=== PATIENT | male | born 1945 | race Caucasian/White ===

== ENCOUNTER → 2016-07-22 | Outpatient (CLI) | payer MEDICARE, OTHER ==
[~2016-07-22] MED LIST: ATEN-60 PO; ATOR10TA PO; DABI150C PO; DRON400T PO; FLU05NSL; MAGN400T7 PO; POTA12PO2 PO; TEST30SO TD; TRIA37.561 PO; [UNRECOGNIZED DRUG - CODE] TD
[2016-07-22 12:16] LABS: Basophils # (auto) 0 uL; Basophils % (auto) 0.4 % (0.0-2.0); Eosinophils # (auto) 0.5 uL; Eosinophils % (auto) 5.9 % (0.0-7.0); Hematocrit 48.2 % (41.0-53.0); Hemoglobin 16.5 g/dL (13.5-17.5); Lymphocytes # (auto) 3.1 uL; Lymphocytes % (auto) 34.5 % (10.0-50.0); Mean Corpuscular Hemoglobin 31.2 pg (28.0-32.0); Mean Corpuscular Hgb Conc. 34.3 g/dL (32.0-36.0); Mean Corpuscular Volume 90.8 fL (80.0-100.0); Monocytes # (auto) 0.8 uL; Monocytes % (auto) 8.5 % (0.0-12.0); Neutrophils # (auto) 4.6 uL; Neutrophils % (auto) 50.7 % (37.0-80.0); Platelet Count (auto) 188 10^3/uL (140-450); Red Cell Distribution Width 12.9 % (11.6-16.0); White Blood Cell 9.1 10^3/uL (4.4-10.8)
[2016-07-22 13:10] LABS: Albumin 3.8 g/dL (3.4-5.0); Bilirubin, Total 1.3 mg/dL (0.2-1.0); Calcium 8.8 mg/dL (8.5-10.1); Potassium 3.3 mmol/L (3.5-5.1); Total Protein 8.3 g/dL (6.4-8.2)
[2016-07-22 13:51] LABS: Bilirubin, Direct 0.3 mg/dL (0-0.2)
== END | disposition home or self-care (01) ==
LOC: LAB 08:29
PROVIDERS: ATTEND Internal Medicine Cardiovascular Disease
DX: I10 Essential (primary) hypertension (principal); E78.00 Pure hypercholesterolemia, unspecified; K74.1 Hepatic sclerosis; E11.9 Type 2 diabetes mellitus without complications; R97.20 Elevated prostate specific antigen [PSA]; R53.81 Other malaise; E03.9 Hypothyroidism, unspecified; D64.9 Anemia, unspecified; E55.9 Vitamin D deficiency, unspecified
CPT/HCPCS: 36415; 80048; 80061; 80076; 82306; 83036; 84153; 84154; 84403; 84436; 84443; 85025

== ENCOUNTER → 2016-10-21 | Outpatient (CLI) | payer MEDICARE, OTHER | END | disposition home or self-care (01) | LOC: Rad HDHVI 09:57 | PROVIDERS: ATTEND Internal Medicine Cardiovascular Disease | DX: I51.7 Cardiomegaly (principal); I70.0 Atherosclerosis of aorta; Z95.810 Presence of automatic (implantable) cardiac defibrillator | CPT/HCPCS: 71020 ==

== ENCOUNTER → 2016-11-27 | Outpatient (CLI) | payer MEDICARE, OTHER ==
[~2016-11-27] MED LIST changes: +ADENOSINE 90 MG in GIVE UN-DILUTED 0 ML IV ONE; +ADENOSINE 90 MG/30 ML INJ IV ONE
[2016-11-27 10:40] VITALS: BP 163/86
[2016-11-27 11:30] VITALS: BP 156/88
== END | disposition home or self-care (01) ==
LOC: Rad HDHVI 08:01
PROVIDERS: ATTEND Internal Medicine Cardiovascular Disease
DX: I48.91 Unspecified atrial fibrillation (principal); I25.10 Atherosclerotic heart disease of native coronary artery without angina pectoris; I10 Essential (primary) hypertension; I25.2 Old myocardial infarction; Z95.0 Presence of cardiac pacemaker
CPT/HCPCS: 78452; 93005; 93306; 96374; 96375; A9500; G0463; J0153

== ENCOUNTER → 2017-08-04 | Outpatient (CLI) | payer OTHER ==
[~2017-08-04] MED LIST changes: -ADENOSINE 90 MG in GIVE UN-DILUTED 0 ML IV ONE; -ADENOSINE 90 MG/30 ML INJ IV ONE; +ALPR0.5T PO; +BUDE2SUS3 IN; +FURO40TA PO; +PRE5T PO
[2017-08-04 09:10] VITALS: BP 157/77
[2017-08-04 12:30] LABS: BUN/Creatinine Ratio 22.2; Calcium 8.9 mg/dL (8.5-10.1); Potassium 3.7 mmol/L (3.5-5.1)
[2017-08-04 12:31] LABS: Basophils # (auto) 0 uL; Basophils % (auto) 0.2 % (0.0-2.0); Eosinophils # (auto) 0.4 uL; Eosinophils % (auto) 3.5 % (0.0-7.0); Hematocrit 44.6 % (41.0-53.0); Hemoglobin 15.5 g/dL (13.5-17.5); Lymphocytes # (auto) 2.7 uL; Lymphocytes % (auto) 25.1 % (10.0-50.0); Mean Corpuscular Hemoglobin 32.3 pg (28.0-32.0); Mean Corpuscular Hgb Conc. 34.7 g/dL (32.0-36.0); Monocytes # (auto) 0.9 uL; Monocytes % (auto) 8.4 % (0.0-12.0); Neutrophils # (auto) 6.7 uL; Neutrophils % (auto) 62.8 % (37.0-80.0); Nucleated Red Blood Cells % 0.4 %; Platelet Count (auto) 129 10^3/uL (140-450); Red Cell Distribution Width 13.2 % (11.8-14.3); White Blood Cell 10.6 10^3/uL (4.4-10.8)
[2017-08-04 12:43] LABS: INR 0.94 (0.9-1.15); Partial Thromboplastin Time 24.7 sec (22.64-33.71); Prothrombin Time 10.2 sec (9.37-12.3)
== END | disposition home or self-care (01) ==
LOC: Rad HDHVI 08:05
PROVIDERS: ATTEND Internal Medicine Cardiovascular Disease
DX: Z01.818 Encounter for other preprocedural examination (principal); I70.0 Atherosclerosis of aorta; J44.9 Chronic obstructive pulmonary disease, unspecified; I51.7 Cardiomegaly; D64.9 Anemia, unspecified; R79.1 Abnormal coagulation profile; I10 Essential (primary) hypertension
CPT/HCPCS: 36415; 71046; 80048; 85025; 85610; 85730; 93005; G0463

== ENCOUNTER 2017-08-07 06:56 | Inpatient (IN) | payer MEDICARE, OTHER ==
[~2017-08-07] VITALS: Ht 177.8 cm; Wt 114.3 kg
[2017-08-07] MEDS ORDERED: LIDOCAINE 2%HCL (LOCAL ANESTH.) INJ 20ML MDV ONE ×2 (07:18→08:45)
[2017-08-07] MEDS ORDERED: MIDAZOLAM HCL 1MG/1ML-2 ML VIAL ONE ×2 (07:43→09:25)
[2017-08-07] MEDS ORDERED: VANCOMYCIN HCL 1000 MG VL ONE (07:44)
[2017-08-07] MEDS ORDERED: ceFAZolin 1GM/50ML 50 ML IV ONE (07:44)
[2017-08-07] MEDS ORDERED: fentaNYL CITRATE 100 MCG/2 ML VL ONE (07:44)
[2017-08-07] MEDS ORDERED: ONDANSETRON HCL 4 MG/2 ML VIAL ONE (07:44)
[2017-08-07] MEDS ORDERED: VANCOMYCIN 1GM/250ML 250 ML IV ONE (07:45)
[2017-08-07] MEDS ORDERED: ceFAZolin 1GM VL ONE (09:50)
[2017-08-07] MEDS ORDERED: MORPHINE SULFATE 4 MG/ML SYR/VIAL IV PRN (10:45)
[2017-08-07] MEDS ORDERED: NITROGLYCERIN 0.4 MG SL TAB SL PRN (10:45)
[2017-08-07] MEDS ORDERED: HYDROcodone-ACET 5/325MG TAB PO PRN (10:45)
[2017-08-07] MEDS ORDERED: ACETAMINOPHEN 325 MG TAB PO PRN (10:45)
[2017-08-07] MEDS ORDERED: ALPRAZolam 0.5 MG TAB PO PRN (11:30)
[2017-08-07 13:01] VITALS: BP 138/84
[2017-08-07 16:36] VITALS: BP 123/73
[2017-08-07 21:49] VITALS: BP 120/70
[2017-08-07] MEDS ORDERED: ATORVASTATIN 20 MG TAB PO SCH (22:00)
[2017-08-07] MEDS ORDERED: VANCOMYCIN 1GM/250ML 250 ML IV SCH (22:00)
[2017-08-07] MEDS: POTASSIUM CHL 20 Meq TABLET PO SCH (22:10)
[2017-08-07] MEDS: MAGNESIUM OXIDE 400 MG TAB PO SCH (22:11)
[2017-08-07] MEDS: BUDESONIDE (INHALATION) 0.5 MG/2 ML NEB NEB SCH (22:35)
[2017-08-08 04:37] VITALS: BP 123/69
[2017-08-08 06:01] LABS: Basophils # (auto) 0 uL; Basophils % (auto) 0.4 % (0.0-2.0); Eosinophils # (auto) 0.2 uL; Eosinophils % (auto) 1.9 % (0.0-7.0); Hemoglobin 14.5 g/dL (13.5-17.5); Lymphocytes # (auto) 2.3 uL; Lymphocytes % (auto) 26.1 % (10.0-50.0); Mean Corpuscular Hemoglobin 32.2 pg (28.0-32.0); Mean Corpuscular Hgb Conc. 34.5 g/dL (32.0-36.0); Mean Corpuscular Volume 93.4 fL (80.0-100.0); Monocytes # (auto) 0.9 uL; Monocytes % (auto) 9.9 % (0.0-12.0); Neutrophils # (auto) 5.4 uL; Neutrophils % (auto) 61.7 % (37.0-80.0); Nucleated Red Blood Cells % 0.1 %; Platelet Count (auto) 142 10^3/uL (140-450); Red Cell Distribution Width 13.5 % (11.8-14.3); White Blood Cell 8.8 10^3/uL (4.4-10.8)
[2017-08-08] MEDS: POTASSIUM CHL 20 Meq TABLET PO SCH (06:04)
[2017-08-08 06:20] LABS: BUN/Creatinine Ratio 19.4; Calcium 8.5 mg/dL (8.5-10.1); Potassium 3.4 mmol/L (3.5-5.1)
[2017-08-08] MEDS ORDERED: CATHFLO ACTIVASE (ALTEPLASE) 2 MG VIAL IV ONE (08:00)
[2017-08-08 09:00] VITALS: BP 119/61
[2017-08-08] MEDS: METOPROLOL SUCCINATE XL 50 MG TAB PO SCH ×2 (09:20→09:29)
[2017-08-08] MEDS: MAGNESIUM OXIDE 400 MG TAB PO SCH (09:20)
[2017-08-08] MEDS ORDERED: FUROSEMIDE 40 MG TAB PO SCH (10:00)
[2017-08-08] MEDS ORDERED: FLUTICASONE PROP NASAL SPR 0.05 % (50MCG) 16GM SCH (10:00)
[2017-08-08] MEDS: BUDESONIDE (INHALATION) 0.5 MG/2 ML NEB NEB SCH (10:15)
== END 2017-08-08 11:50 | disposition home or self-care (01) | DRG 245 ==
LOC: CATH 06:56 → TELE-WESTW 06:57
PROVIDERS: ADMIT Internal Medicine Cardiovascular Disease; ATTEND Internal Medicine Cardiovascular Disease
PROC: 0JH609Z Insertion of Cardiac Resynchronization Defibrillator Pulse Generator into Chest Subcutaneous Tissue and Fascia, Open Approach (ICD-10-PCS; principal; 2017-08-07)
PROC: 0JPT0PZ Removal of Cardiac Rhythm Related Device from Trunk Subcutaneous Tissue and Fascia, Open Approach (ICD-10-PCS; 2017-08-07)
PROC: 5A09357 Assistance with Respiratory Ventilation, Less than 24 Consecutive Hours, Continuous Positive Airway Pressure (ICD-10-PCS; 2017-08-07)
DX: Z45.02 Encounter for adjustment and management of automatic implantable cardiac defibrillator (principal); I11.0 Hypertensive heart disease with heart failure; I50.22 Chronic systolic (congestive) heart failure; I25.5 Ischemic cardiomyopathy; E78.5 Hyperlipidemia, unspecified; J45.909 Unspecified asthma, uncomplicated; F41.9 Anxiety disorder, unspecified; I25.10 Atherosclerotic heart disease of native coronary artery without angina pectoris; I25.2 Old myocardial infarction; Z85.048 Personal history of other malignant neoplasm of rectum, rectosigmoid junction, and anus; Z92.21 Personal history of antineoplastic chemotherapy
CPT/HCPCS: 33264; 36415; 80048; 85025; 94640; 94660; 99152; J0690; J2250; J2405

== ENCOUNTER → 2017-08-19 | Outpatient (CLI) | payer OTHER ==
[~2017-08-19] MED LIST changes: -TRIA37.561 PO; -[UNRECOGNIZED DRUG - CODE] TD
== END | disposition home or self-care (01) ==
LOC: Rad HDHVI 09:22
PROVIDERS: ATTEND Internal Medicine Cardiovascular Disease
DX: I10 Essential (primary) hypertension (principal); J44.1 Chronic obstructive pulmonary disease with (acute) exacerbation; E78.5 Hyperlipidemia, unspecified
CPT/HCPCS: 93880

== ENCOUNTER → 2017-11-07 | Outpatient (CLI) | payer OTHER, MEDICARE ==
[2017-11-07 12:10] LABS: Urine Blood Negative /uL (Negative); Urine Specific Gravity 1.016 (1.001-1.035)
[2017-11-07 12:15] LABS: Basophils # (auto) 0 uL; Basophils % (auto) 0.4 % (0.0-2.0); Eosinophils # (auto) 0.2 uL; Eosinophils % (auto) 2.4 % (0.0-7.0); Hemoglobin 15.6 g/dL (13.5-17.5); Lymphocytes # (auto) 3.5 uL; Mean Corpuscular Hemoglobin 31.5 pg (28.0-32.0); Mean Corpuscular Hgb Conc. 34.6 g/dL (32.0-36.0); Mean Corpuscular Volume 90.8 fL (80.0-100.0); Monocytes # (auto) 0.9 uL; Monocytes % (auto) 10.1 % (0.0-12.0); Neutrophils # (auto) 4.3 uL; Neutrophils % (auto) 48.1 % (37.0-80.0); Nucleated Red Blood Cells % 0.6 %; Platelet Count (auto) 209 10^3/uL (140-450); Red Blood Cells 4.96 10^6/uL (4.5-5.90); White Blood Cell 8.9 10^3/uL (4.4-10.8)
[2017-11-07 12:21] LABS: Free T4 (Free Thyroxine) 1.07 ng/dL (0.89-1.76)
[2017-11-07 12:30] LABS: Prostate Specific Antigen 7.82 ng/mL (0.0-4.0)
[2017-11-07 12:35] LABS: Albumin 3.7 g/dL (3.4-5.0); BUN/Creatinine Ratio 16.7; Bilirubin, Total 1.3 mg/dL (0.2-1.0); Calcium 9.1 mg/dL (8.5-10.1); Potassium 3.8 mmol/L (3.5-5.1); Total Protein 8.2 g/dL (6.4-8.2)
== END | disposition home or self-care (01) ==
LOC: LAB 07:49
PROVIDERS: ATTEND Internal Medicine Cardiovascular Disease
DX: Z00.01 Encounter for general adult medical examination with abnormal findings (principal); C61 Malignant neoplasm of prostate; E29.1 Testicular hypofunction; E03.9 Hypothyroidism, unspecified; E11.9 Type 2 diabetes mellitus without complications; E55.9 Vitamin D deficiency, unspecified; D51.9 Vitamin B12 deficiency anemia, unspecified; N39.0 Urinary tract infection, site not specified
CPT/HCPCS: 36415; 80053; 80061; 81003; 82306; 82607; 83036; 84153; 84154; 84403; 84439; 84443; 85025

== ENCOUNTER → 2018-10-21 | Outpatient (CLI) | payer OTHER, MEDICARE | END | disposition home or self-care (01) | LOC: Rad HDHVI 08:57 | PROVIDERS: ATTEND Internal Medicine Cardiovascular Disease | DX: I05.9 Rheumatic mitral valve disease, unspecified (principal); I25.5 Ischemic cardiomyopathy; I50.23 Acute on chronic systolic (congestive) heart failure | CPT/HCPCS: 93306 ==

== ENCOUNTER → 2018-11-17 | Outpatient (CLI) | payer OTHER, MEDICARE, BC ==
[~2018-11-17] VITALS: Ht 175.3 cm; Wt 104.3 kg
[~2018-11-17] MED LIST changes: +ADENOSINE 88 MG in GIVE UN-DILUTED 0 ML IV ONE; +ADENOSINE 90 MG/30 ML INJ IV ONE
[2018-11-17 12:20] LABS: Urine Blood Negative /uL (Negative); Urine Specific Gravity 1.007 (1.001-1.035)
[2018-11-17 12:37] LABS: Basophils # (auto) 0 uL; Basophils % (auto) 0.3 % (0.0-2.0); Eosinophils # (auto) 0.4 uL; Eosinophils % (auto) 3.9 % (0.0-7.0); Hematocrit 44.4 % (41.0-53.0); Hemoglobin 15.7 g/dL (13.5-17.5); Lymphocytes # (auto) 3.1 uL; Lymphocytes % (auto) 33.5 % (10.0-50.0); Mean Corpuscular Hemoglobin 31.5 pg (28.0-32.0); Mean Corpuscular Hgb Conc. 35.4 g/dL (32.0-36.0); Mean Corpuscular Volume 89.2 fL (80.0-100.0); Neutrophils # (auto) 4.8 uL; Neutrophils % (auto) 51.3 % (37.0-80.0); Platelet Count (auto) 169 10^3/uL (140-450); Red Blood Cells 4.98 10^6/uL (4.5-5.90); Red Cell Distribution Width 13.1 % (11.8-14.3); White Blood Cell 9.3 10^3/uL (4.4-10.8)
[2018-11-17 13:03] LABS: Free T4 (Free Thyroxine) 0.97 ng/dL (0.89-1.76); Prostate Specific Antigen 10.09 ng/mL (0.0-4.0)
[2018-11-17 13:24] LABS: Albumin 3.7 g/dL (3.4-5.0); Calcium 9.1 mg/dL (8.5-10.1); Potassium 3.4 mmol/L (3.5-5.1)
[2018-11-17 13:29] LABS: BUN/Creatinine Ratio 17.3; Bilirubin, Total 1.1 mg/dL (0.2-1.0); Total Protein 7.9 g/dL (6.4-8.2)
== END | disposition home or self-care (01) ==
LOC: Rad HDHVI 08:21
PROVIDERS: ATTEND Internal Medicine Cardiovascular Disease
DX: I25.5 Ischemic cardiomyopathy (principal); E03.9 Hypothyroidism, unspecified; E55.9 Vitamin D deficiency, unspecified; E29.1 Testicular hypofunction; C61 Malignant neoplasm of prostate; D51.9 Vitamin B12 deficiency anemia, unspecified; N39.0 Urinary tract infection, site not specified; M81.0 Age-related osteoporosis without current pathological fracture; I11.0 Hypertensive heart disease with heart failure; I50.23 Acute on chronic systolic (congestive) heart failure; Z79.899 Other long term (current) drug therapy
CPT/HCPCS: 36415; 78452; 80053; 80061; 81003; 82306; 82607; 83036; 84153; 84403; 84439; 84443; 85025; 93005; 96374; 96375; A9500; J0153

== ENCOUNTER → 2019-07-16 | Outpatient (CLI) | payer OTHER, MEDICARE, BC ==
[~2019-07-16] MED LIST changes: -ADENOSINE 88 MG in GIVE UN-DILUTED 0 ML IV ONE; -ADENOSINE 90 MG/30 ML INJ IV ONE; -DABI150C PO; +DABI150C5 PO; +FURO1TAB31 PO; -FURO40TA PO
== END | disposition home or self-care (01) ==
LOC: LAB 11:07
PROVIDERS: ATTEND Internal Medicine Cardiovascular Disease
DX: I50.9 Heart failure, unspecified (principal)
CPT/HCPCS: 83880

== ENCOUNTER → 2019-09-07 | Outpatient (CLI) | payer MEDICARE, BC ==
--- NOTE | 2019-09-07 09:05 | NUR ---
CHF PT ARRIVED AT THE CHF CLINIC FOR TX AND EVAL. PT HAD DOPPLER DONE TODAY. EKG LABS AND CHEST XRAY ALSO STARTED.VSS 0 DISTRESS NOTED MASK PLACED ON PATIENT. Addendum: 09/07/19 at 1410 by JOSÉ MANUEL FRANKLIN RN MD PT HAS BEEN EXPERIENCING BRONCHITIS, COUGH AND SHORTNESS OF BREATH
--- NOTE | 2019-09-07 09:45 | NUR ---
LABS SENT PER MD ORDER
[2019-09-07 10:00] VITALS: BP 130/69
--- NOTE | 2019-09-07 10:00 | NUR ---
Discharge Instructions See e-MAR for any mediations given with this visit. Patient education given on disease process. Patient verbalized understanding. Previous labs reviewed. Patient discharged in stable condition with after care instructions and follow up appointment. PT HAS FOLLOW UP WITH MD BANDA 09/10/19
[2019-09-07 12:04] LABS: Basophils # (auto) 0 10 ^3/uL (0-0.2); Basophils % (auto) 0.2 % (0.0-2.0); Eosinophils # (auto) 0 10 ^3/uL (0-0.8); Eosinophils % (auto) 0.4 % (0.0-7.0); Hematocrit 43.1 % (41.0-53.0); Hemoglobin 14.9 g/dL (13.5-17.5); Lymphocytes # (auto) 1.7 10 ^3/uL (0.4-5.4); Lymphocytes % (auto) 16.2 % (10.0-50.0); Mean Corpuscular Hemoglobin 31.8 pg (28.0-32.0); Mean Corpuscular Hgb Conc. 34.6 g/dL (32.0-36.0); Mean Corpuscular Volume 91.8 fL (80.0-100.0); Monocytes # (auto) 0.5 10 ^3/uL (0-1.3); Monocytes % (auto) 4.6 % (0.0-12.0); Neutrophils # (auto) 8.4 10 ^3/uL (1.6-8.6); Neutrophils % (auto) 78.6 % (37.0-80.0); Nucleated Red Blood Cells % 0.1 %; Platelet Count (auto) 152 10^3/uL (140-450); Red Blood Cells 4.69 10^6/uL (4.5-5.90); Red Cell Distribution Width 13.7 % (11.8-14.3); White Blood Cell 10.7 10^3/uL (4.4-10.8)
[2019-09-07 12:08] LABS: Potassium 3.7 mmol/L (3.5-5.1)
[2019-09-07 12:15] LABS: Albumin 2.3 g/dL (3.4-5.0); BUN/Creatinine Ratio 26.8; Bilirubin, Total 0.8 mg/dL (0.2-1.0); Calcium 8.4 mg/dL (8.5-10.1); Total Protein 6.1 g/dL (6.4-8.2)
== END | disposition home or self-care (01) ==
LOC: Rad HDHVI 09:08
PROVIDERS: ATTEND Internal Medicine Cardiovascular Disease
DX: I50.9 Heart failure, unspecified (principal); Z79.899 Other long term (current) drug therapy; E11.9 Type 2 diabetes mellitus without complications; I51.7 Cardiomegaly; Q79.1 Other congenital malformations of diaphragm; J98.11 Atelectasis
CPT/HCPCS: 36415; 71046; 80053; 83036; 83880; 85025; G0463

== ENCOUNTER → 2019-09-10 | Outpatient (CLI) | payer MEDICARE, BC ==
[~2019-09-10] VITALS: Ht 30.5 cm; Wt 105.7 kg
[~2019-09-10] MED LIST changes: +FUROSEMIDE 100 MG/10ML VIAL IV ONE; +FUROSEMIDE 40 MG/4 ML VIAL ONE; +POTASSIUM CHL 20 Meq TABLET PO ONE
[2019-09-10 11:15] VITALS: BP 110/64
--- NOTE | 2019-09-10 11:15 | NUR ---
PT TO CHF CLINIC FROM B/O PT IN TO CHF CLINIC FROM B/O. PT ALERT AND AWAKE. NO S/S OF DISTRESS/SOB. VSS. WILL CARRY OUT MD ORDERS.
--- NOTE | 2019-09-10 11:38 | NUR ---
IV MED ADMINISTERED PER MD ORDER VIA BUTTERFLY IV ACCESS BY LATANYA MONTILLA. BUTTERFLY IV ACCESS D/C WITH STERILE TECHNIQUE, CATHETER INTACT. PRESSURE DRESSING APPLIED. PT TOLERATED WELL.
[2019-09-10 11:59] VITALS: BP 98/55
--- NOTE | 2019-09-10 11:59 | NUR ---
CHF Discharge Instructions See e-MAR for any mediations given with this visit. Patient education given on disease process. Patient verbalized understanding. Previous labs reviewed. Patient discharged in stable condition with after care instructions and follow up appointment. NOTES LASIX IVP ADMIN BY LATANYA MONTILLA POTASSIUM PO ADMIN BY LATANYA MONTILLA
== END | disposition home or self-care (01) ==
LOC: CHF HDHVI 11:01
PROVIDERS: ATTEND Internal Medicine Cardiovascular Disease
DX: I50.9 Heart failure, unspecified (principal); R60.9 Edema, unspecified; E11.9 Type 2 diabetes mellitus without complications; Z79.899 Other long term (current) drug therapy
CPT/HCPCS: 96374; G0463; J1940

== ENCOUNTER → 2019-09-13 | Outpatient (CLI) | payer MEDICARE, BC ==
[~2019-09-13] MED LIST changes: -FUROSEMIDE 100 MG/10ML VIAL IV ONE; -FUROSEMIDE 40 MG/4 ML VIAL ONE; -POTASSIUM CHL 20 Meq TABLET PO ONE
== END | disposition home or self-care (01) ==
LOC: Rad HDHVI 10:56
PROVIDERS: ATTEND Internal Medicine Cardiovascular Disease
DX: M79.609 Pain in unspecified limb (principal)
CPT/HCPCS: 93926

== ENCOUNTER → 2019-10-08 | Outpatient (CLI) | payer MEDICARE, BC ==
[~2019-10-08] MED LIST changes: +IOHEXOL 350 MG/ML 100ML IJ ONE; +READI-CAT 2 (BARIUM SULF)(VANILLA SMOOTHIE) 450ML ONE
[2019-10-08 09:00] VITALS: BP 115/82
--- NOTE | 2019-10-08 09:00 | NUR ---
PATIENT SENT MD SIDE WITH ORDERS FOR CT WITH IV CONTRAST.
--- NOTE | 2019-10-08 09:10 | NUR ---
IV insertion IV access obtained by Keenan AVINA, via clean sterile technique by inserting 22 gauge catheter at after 2 attempt(s). IV secured properly. No trauma to site. Patient tolerated procedure well. NOTE PATIENT REQUESTED KEENAN FOR IV START.
--- NOTE | 2019-10-08 09:25 | NUR ---
BLOOD SENT TO LAB FOR STAT CREAT.
[2019-10-08 10:21] LABS: Albumin 2.7 g/dL (3.4-5.0); Calcium 8.8 mg/dL (8.5-10.1); Potassium 3.7 mmol/L (3.5-5.1)
[2019-10-08 10:24] LABS: Bilirubin, Total 0.9 mg/dL (0.2-1.0); Total Protein 8.4 g/dL (6.4-8.2)
--- NOTE | 2019-10-08 10:50 | NUR ---
IV removal IV DC'd with sterile technique, catheter fully intact. Pressure dressing applied to site. Patient tolerated procedure well.
[2019-10-08 10:52] VITALS: BP 121/71
--- NOTE | 2019-10-08 10:52 | NUR ---
CHF CLINIC Discharge Instructions See e-MAR for any mediations given with this visit. Patient education given on disease process. Patient verbalized understanding. Previous labs reviewed. Patient discharged in stable condition with after care instructions and follow up appointment. NOTE PATIENT EDUCATED TO DRINK PLENTY OF FLUIDS FOLLOWING IV CONTRAST.
[2019-10-08 11:58] LABS: Basophils # (auto) 0 10 ^3/uL (0-0.2); Basophils % (auto) 0.4 % (0.0-2.0); Eosinophils # (auto) 0.3 10 ^3/uL (0-0.8); Eosinophils % (auto) 1.9 % (0.0-7.0); Hematocrit 40.4 % (41.0-53.0); Hemoglobin 13.2 g/dL (13.5-17.5); Lymphocytes % (auto) 22.8 % (10.0-50.0); Mean Corpuscular Hemoglobin 30.5 pg (28.0-32.0); Mean Corpuscular Hgb Conc. 32.6 g/dL (32.0-36.0); Mean Corpuscular Volume 93.5 fL (80.0-100.0); Monocytes # (auto) 1.1 10 ^3/uL (0-1.3); Monocytes % (auto) 8.3 % (0.0-12.0); Neutrophils # (auto) 8.9 10 ^3/uL (1.6-8.6); Neutrophils % (auto) 66.6 % (37.0-80.0); Nucleated Red Blood Cells % 0.1 %; Platelet Count (auto) 126 10^3/uL (140-450); Red Blood Cells 4.32 10^6/uL (4.5-5.90); Red Cell Distribution Width 17.2 % (11.8-14.3); White Blood Cell 13.3 10^3/uL (4.4-10.8)
[2019-10-08 12:23] LABS: Free T4 (Free Thyroxine) 1.53 ng/dL (0.89-1.76)
[2019-10-08 12:58] LABS: Prostate Specific Antigen 5.48 ng/mL (0.0-4.0)
== END | disposition home or self-care (01) ==
LOC: Rad HDHVI 08:03
PROVIDERS: ATTEND Internal Medicine Cardiovascular Disease
DX: Z12.5 Encounter for screening for malignant neoplasm of prostate (principal); J43.9 Emphysema, unspecified; I70.0 Atherosclerosis of aorta; K40.90 Unilateral inguinal hernia, without obstruction or gangrene, not specified as recurrent; R91.1 Solitary pulmonary nodule; I11.9 Hypertensive heart disease without heart failure; I48.0 Paroxysmal atrial fibrillation; I49.5 Sick sinus syndrome; G47.30 Sleep apnea, unspecified; K90.9 Intestinal malabsorption, unspecified; R00.2 Palpitations; R05 Cough; R63.4 Abnormal weight loss; Z79.899 Other long term (current) drug therapy; Z90.49 Acquired absence of other specified parts of digestive tract
CPT/HCPCS: 36415; 71046; 74177; 80053; 82306; 83735; 84153; 84154; 84439; 84443; 85025; 93306; G0463; Q9967

== ENCOUNTER → 2019-11-01 | Outpatient (CLI) | payer MEDICARE, BC ==
[~2019-11-01] VITALS: Ht 177.8 cm; Wt 95.3 kg
[~2019-11-01] MED LIST changes: +ADENOSINE 80 MG in GIVE UN-DILUTED 0 ML IV ONE; +ADENOSINE 90 MG/30 ML INJ IV ONE; -IOHEXOL 350 MG/ML 100ML IJ ONE; -READI-CAT 2 (BARIUM SULF)(VANILLA SMOOTHIE) 450ML ONE
== END | disposition home or self-care (01) ==
LOC: Rad HDHVI 13:08
PROVIDERS: ATTEND Internal Medicine Cardiovascular Disease
DX: I10 Essential (primary) hypertension (principal); I25.2 Old myocardial infarction; I25.10 Atherosclerotic heart disease of native coronary artery without angina pectoris; E11.9 Type 2 diabetes mellitus without complications; Z95.0 Presence of cardiac pacemaker; Z95.1 Presence of aortocoronary bypass graft
CPT/HCPCS: 78452; 93005; 96374; 96375; A9500; J0153

== ENCOUNTER → 2020-10-09 | Outpatient (CLI) | payer MEDICARE, BC ==
[~2020-10-09] MED LIST changes: -ADENOSINE 80 MG in GIVE UN-DILUTED 0 ML IV ONE; -ADENOSINE 90 MG/30 ML INJ IV ONE
== END | disposition home or self-care (01) ==
LOC: Rad HDHVI 08:06
PROVIDERS: ATTEND Internal Medicine Cardiovascular Disease
DX: I08.3 Combined rheumatic disorders of mitral, aortic and tricuspid valves (principal); I11.9 Hypertensive heart disease without heart failure; R06.02 Shortness of breath
CPT/HCPCS: 93306

== ENCOUNTER → 2020-10-17 | Outpatient (CLI) | payer MEDICARE, BC ==
[~2020-10-17] VITALS: Ht 177.8 cm; Wt 83.9 kg
[~2020-10-17] MED LIST changes: +ADENOSINE 70 MG in GIVE UN-DILUTED 0 ML IV ONE; +ADENOSINE 90 MG/30 ML INJ IV ONE
[2020-10-17 12:07] LABS: Urine Blood TRACE /uL (Negative); Urine Specific Gravity 1.011 (1.001-1.035)
[2020-10-17 12:19] LABS: Albumin 3.6 g/dL (3.4-5.0); BUN/Creatinine Ratio 20.7; Potassium 3.3 mmol/L (3.5-5.1)
[2020-10-17 12:22] LABS: Basophils # (auto) 0 10 ^3/uL (0-0.2); Basophils % (auto) 0.6 % (0.0-2.0); Eosinophils # (auto) 0.3 10 ^3/uL (0-0.8); Eosinophils % (auto) 3.9 % (0.0-7.0); Hematocrit 48.5 % (41.0-53.0); Hemoglobin 16.8 g/dL (13.5-17.5); Lymphocytes # (auto) 2.1 10 ^3/uL (0.4-5.4); Lymphocytes % (auto) 28.4 % (10.0-50.0); Mean Corpuscular Hemoglobin 31.6 pg (28.0-32.0); Mean Corpuscular Hgb Conc. 34.7 g/dL (32.0-36.0); Monocytes # (auto) 0.8 10 ^3/uL (0-1.3); Monocytes % (auto) 10.7 % (0.0-12.0); Neutrophils # (auto) 4.2 10 ^3/uL (1.6-8.6); Neutrophils % (auto) 56.4 % (37.0-80.0); Nucleated Red Blood Cells % 0.1 %; Red Blood Cells 5.33 10^6/uL (4.5-5.90); Red Cell Distribution Width 14.7 % (11.8-14.3); White Blood Cell 7.4 10^3/uL (4.4-10.8)
[2020-10-17 12:23] LABS: Bilirubin, Total 1.1 mg/dL (0.2-1.0); Total Protein 8.6 g/dL (6.4-8.2)
[2020-10-17 12:26] LABS: Free T4 (Free Thyroxine) 1.21 ng/dL (0.89-1.76)
[2020-10-17 12:33] LABS: Prostate Specific Antigen 8.39 ng/mL (0.0-4.0)
== END | disposition home or self-care (01) ==
LOC: Rad HDHVI 08:21
PROVIDERS: ATTEND Internal Medicine Cardiovascular Disease
DX: C61 Malignant neoplasm of prostate (principal); I11.0 Hypertensive heart disease with heart failure; I50.23 Acute on chronic systolic (congestive) heart failure; E11.9 Type 2 diabetes mellitus without complications; I73.9 Peripheral vascular disease, unspecified; I25.10 Atherosclerotic heart disease of native coronary artery without angina pectoris; I25.2 Old myocardial infarction; D64.9 Anemia, unspecified; E55.9 Vitamin D deficiency, unspecified; D51.3 Other dietary vitamin B12 deficiency anemia; R30.0 Dysuria; R00.2 Palpitations; R06.02 Shortness of breath; R53.1 Weakness; E78.5 Hyperlipidemia, unspecified; G45.9 Transient cerebral ischemic attack, unspecified; Z95.0 Presence of cardiac pacemaker; Z95.1 Presence of aortocoronary bypass graft; Z82.49 Family history of ischemic heart disease and other diseases of the circulatory system
CPT/HCPCS: 36415; 78452; 80053; 80061; 81003; 82306; 82607; 83036; 84153; 84154; 84403; 84439; 84443; 85025; 93005; 96374; 96375; A9500; J0153

== ENCOUNTER 2021-02-22 07:26 | Day surgery (SDC) | payer MEDICARE, BC ==
[2021-02-22] VITALS (8 sets, daily range): BP systolic 108–130; BP diastolic 68–89
[~2021-02-22] VITALS: Ht 177.8 cm; Wt 83.9 kg
[~2021-02-22 07:26] MED LIST changes: +ACLI1AER2 IN; -ADENOSINE 70 MG in GIVE UN-DILUTED 0 ML IV ONE; -ADENOSINE 90 MG/30 ML INJ IV ONE; +AZIL40TA2 PO; -DRON400T PO; +INSU1.2I SC; +LEV50T PO; -PRE5T PO
[2021-02-22] MEDS ORDERED: LIDOCAINE 2%HCL (LOCAL ANESTH.) INJ 20ML MDV ONE (07:50)
[2021-02-22] MEDS ORDERED: fentaNYL CITRATE 100 MCG/2 ML VL ONE (08:25)
[2021-02-22] MEDS ORDERED: SODIUM CHL 0.9% 0 ML ONE (08:25)
[2021-02-22] MEDS ORDERED: ANGIOMAX 250 MG VIAL IV ONE (08:25)
[2021-02-22] MEDS ORDERED: MIDAZOLAM HCL 2MG/2ML 2ml VIAL (1mg/ml) ONE (08:25)
[2021-02-22] MEDS ORDERED: HYDROmorphone HCL 2 MG/ML VL ONE (08:36)
== END 2021-02-22 11:25 | disposition home or self-care (01) ==
LOC: CATH 07:26
PROVIDERS: ATTEND Internal Medicine Cardiovascular Disease
DX: R07.9 Chest pain, unspecified (principal); I25.810 Atherosclerosis of coronary artery bypass graft(s) without angina pectoris; I25.5 Ischemic cardiomyopathy; I25.2 Old myocardial infarction; I11.0 Hypertensive heart disease with heart failure; E11.9 Type 2 diabetes mellitus without complications; G47.30 Sleep apnea, unspecified; Z20.822 Contact with and (suspected) exposure to COVID-19; Z88.1 Allergy status to other antibiotic agents; Z87.891 Personal history of nicotine dependence; Z96.89 Presence of other specified functional implants; Z79.899 Other long term (current) drug therapy; Z95.5 Presence of coronary angioplasty implant and graft; Z98.890 Other specified postprocedural states
CPT/HCPCS: 93459; C1760; C1769; C1894; J1170; J1644; J2250; J3010; U0003; 75716; 75756; 93458; 99152

== ENCOUNTER 2021-04-23 07:00 | Inpatient (IN) | payer MEDICARE, BC ==
[2021-04-16 11:31] LABS: Basophils # (auto) 0 10 ^3/uL (0-0.2); Basophils % (auto) 0.6 % (0.0-2.0); Eosinophils # (auto) 0.4 10 ^3/uL (0-0.8); Eosinophils % (auto) 5.4 % (0.0-7.0); Hematocrit 46.6 % (41.0-53.0); Hemoglobin 16.2 g/dL (13.5-17.5); Lymphocytes # (auto) 2.3 10 ^3/uL (0.4-5.4); Lymphocytes % (auto) 29.7 % (10.0-50.0); Mean Corpuscular Hemoglobin 31.5 pg (28.0-32.0); Mean Corpuscular Hgb Conc. 34.9 g/dL (32.0-36.0); Mean Corpuscular Volume 90.3 fL (80.0-100.0); Monocytes # (auto) 0.9 10 ^3/uL (0-1.3); Monocytes % (auto) 10.9 % (0.0-12.0); Neutrophils # (auto) 4.2 10 ^3/uL (1.6-8.6); Neutrophils % (auto) 53.4 % (37.0-80.0); Red Blood Cells 5.16 10^6/uL (4.5-5.90); Red Cell Distribution Width 13.8 % (11.8-14.3); White Blood Cell 7.9 10^3/uL (4.4-10.8)
[2021-04-16 11:39] LABS: INR 1.21 (0.9-1.15); Partial Thromboplastin Time 43.4 sec (23.6-33.0)
[2021-04-16 11:48] LABS: Urine Bacteria NONE SEEN /hpf (None Seen); Urine Blood Negative /uL (Negative); Urine Specific Gravity 1.005 (1.001-1.035); Urine WBC <1 /hpf (0 - 3)
[2021-04-16 12:27] LABS: Potassium 3.6 mmol/L (3.5-5.1)
[2021-04-16 12:32] LABS: Albumin 3.9 g/dL (3.4-5.0); Bilirubin, Total 1.2 mg/dL (0.2-1.0); Calcium 9.3 mg/dL (8.5-10.1); Total Protein 8.2 g/dL (6.4-8.2)
[~2021-04-23] VITALS: Ht 177.8 cm; Wt 86.0 kg
[2021-04-23] VITALS (11 sets, daily range): BP systolic 108–137; BP diastolic 54–82
[~2021-04-23 07:00] MED LIST changes: -FURO1TAB31 PO
[2021-04-23] MEDS ORDERED: CELECOXIB 100 MG CAP ONE (07:34)
[2021-04-23] MEDS ORDERED: ceFAZolin 1GM/50ML 100 ML IV ONE (07:34)
[2021-04-23] MEDS ORDERED: ACETAMINOPHEN IV 100 ML IV ONE (07:35)
[2021-04-23] MEDS ORDERED: ACETAMINOPHEN IV 1000 MG/100ML (10MG/ML) IV ONE (08:00)
[2021-04-23] MEDS ORDERED: CELECOXIB 100 MG CAP PO ONE (08:00)
[2021-04-23] MEDS ORDERED: PREGABALIN CAPSULE 75 MG CAP PO ONE (08:00)
[2021-04-23] MEDS ORDERED: KETOROLAC TROMETH 30 MG/ML 1ML VIAL ONE (08:11)
[2021-04-23] MEDS ORDERED: VANCOMYCIN HCL 1000 MG VL ONE (08:17)
[2021-04-23] MEDS ORDERED: TETRACAINE 1% INJ 2 ML VIAL IJ ONE (09:09)
[2021-04-23] MEDS: TRANEXAMIC ACID 20 ML ONE ×2 (09:21→11:10)
[2021-04-23] MEDS ORDERED: BUPIVACAINE W/ EPINEPH 0.25% INJ 50ML MDV ONE (09:25)
[2021-04-23] MEDS ORDERED: MORPHINE SULF PF 2 MG/2 ML SYRG ONE (09:34)
[2021-04-23] MEDS ORDERED: PROPOFOL 10 MG/ML 20 ML IV ONE ×2 (10:42→10:53)
[2021-04-23] MEDS ORDERED: LIDOCAINE 2% (LOCAL ANESTH.) PF 5ml SDV ONE (10:53)
[2021-04-23] MEDS ORDERED: ONDANSETRON HCL 4 MG/2 ML VIAL ONE (10:53)
[2021-04-23] MEDS ORDERED: NITROGLYCERIN 0.4 MG SL TAB SL PRN (12:00)
[2021-04-23] MEDS ORDERED: ceFAZolin 1GM/50ML 50 ML IV SCH (12:00)
[2021-04-23] MEDS ORDERED: ACETAMINOPHEN 325 MG TAB PO PRN (12:00)
[2021-04-23] MEDS ORDERED: ONDANSETRON HCL 4 MG/2 ML VIAL IV PRN ×2 (12:00→12:15)
[2021-04-23] MEDS ORDERED: traMADol HCL 50 MG TAB PO PRN (12:00)
[2021-04-23] MEDS ORDERED: OXYCODONE W/ ACETAMINOPHEN 5/325MG TABLET PO PRN (12:00)
[2021-04-23] MEDS ORDERED: ALPRAZolam 0.5 MG TAB PO PRN (12:00)
[2021-04-23] MEDS ORDERED: NALBUPHINE HCL 10 MG/1ml INJECTION SUBCUT ONE (12:15)
[2021-04-23] MEDS ORDERED: diphenhdrAMINE HCL 50 MG/1 ML VL IV PRN (12:15)
[2021-04-23] MEDS ORDERED: NALOXONE HCL 0.4 MG/ML VIAL IV PRN (12:15)
[2021-04-23] MEDS ORDERED: DexAMETHasone SOD PHOS 10MG/1ML VIAL INJ IV PRN (12:15)
[2021-04-23] MEDS ORDERED: HYDROmorphone HCL 2 MG/ML VL IV PRN (12:15)
[2021-04-23] MEDS ORDERED: DEXTROSE (50%) 50ML SYRG IV PRN (12:15)
[2021-04-23] MEDS: SODIUM CHLOR 0.9% PF (SALINE LOCK) 10ML VIAL/SYR IV SCH ×2 (13:56→22:08)
[2021-04-23] MEDS: POTASSIUM CHL 20 Meq TABLET PO SCH (14:00)
[2021-04-23] MEDS: LACTATED RINGER'S 1,000 ML IV SCH ×2 (14:34→22:00)
[2021-04-23] MEDS: InsuLIN REG 1unit/0.01ml Soln (100units/ml) SC SCH ×2 (17:00→22:00)
[2021-04-23] MEDS ORDERED: ACCU-CHEK COMFORT CURVE STRIP VI SCH (17:00)
[2021-04-23] MEDS: ACCU-CHEK COMFORT CURVE STRIP VI SCH ×2 (17:26→22:09)
[2021-04-23] MEDS: ceFAZolin 1GM/50ML 50 ML IV SCH (20:51)
[2021-04-23] MEDS: TESTOSTERONE 30 MG TD SCH (22:00)
[2021-04-23] MEDS: BUDESONIDE (INHALATION) 0.5 MG/2 ML NEB NEB SCH (22:00)
[2021-04-23] MEDS ORDERED: TESTOSTERONE 30 MG TD SCH (22:00)
[2021-04-23] MEDS ORDERED: INSULIN GLARGINE SC SCH (22:00)
[2021-04-23] MEDS: oxyCODONE ER 10 MG TAB PO SCH (22:00)
[2021-04-23] MEDS ORDERED: ACLIDINIUM BROMIDE IN SCH (22:00)
[2021-04-24] VITALS (12 sets, daily range): BP systolic 96–135; BP diastolic 48–82
[2021-04-24] MEDS: DOCUSATE SOD 100 MG CAP PO SCH ×3 (00:14→22:14)
[2021-04-24] MEDS: POTASSIUM CHL 20 Meq TABLET PO SCH ×4 (00:14→22:15)
[2021-04-24] MEDS: ATORVASTATIN 20 MG TAB PO SCH ×2 (00:15→22:15)
[2021-04-24] MEDS: MAGNESIUM OXIDE 400 MG TAB PO SCH ×3 (00:15→22:15)
[2021-04-24] MEDS: ceFAZolin 1GM/50ML 50 ML IV SCH (01:48)
[2021-04-24] MEDS: LACTATED RINGER'S 1,000 ML IV SCH (01:48)
[2021-04-24] MEDS: SODIUM CHLOR 0.9% PF (SALINE LOCK) 10ML VIAL/SYR IV SCH ×3 (06:08→22:26)
[2021-04-24] MEDS: InsuLIN REG 1unit/0.01ml Soln (100units/ml) SC SCH ×4 (06:09→22:00)
[2021-04-24] MEDS: LEVOTHYROXINE SODIUM 50 MCG TAB PO SCH (06:09)
[2021-04-24] MEDS: ACCU-CHEK COMFORT CURVE STRIP VI SCH ×4 (06:09→22:16)
[2021-04-24 07:32] LABS: Basophils # (auto) 0 10 ^3/uL (0-0.2); Basophils % (auto) 0.4 % (0.0-2.0); Eosinophils # (auto) 0.3 10 ^3/uL (0-0.8); Eosinophils % (auto) 3.8 % (0.0-7.0); Hemoglobin 13.3 g/dL (13.5-17.5); Lymphocytes # (auto) 1.7 10 ^3/uL (0.4-5.4); Lymphocytes % (auto) 20.8 % (10.0-50.0); Mean Corpuscular Hemoglobin 31.4 pg (28.0-32.0); Mean Corpuscular Hgb Conc. 34.9 g/dL (32.0-36.0); Monocytes % (auto) 11.5 % (0.0-12.0); Neutrophils # (auto) 5.3 10 ^3/uL (1.6-8.6); Neutrophils % (auto) 63.5 % (37.0-80.0); Nucleated Red Blood Cells % 0.2 %; Red Blood Cells 4.22 10^6/uL (4.5-5.90); Red Cell Distribution Width 13.7 % (11.8-14.3); White Blood Cell 8.4 10^3/uL (4.4-10.8)
[2021-04-24 07:47] LABS: Potassium 3.6 mmol/L (3.5-5.1)
[2021-04-24 07:52] LABS: Albumin 2.8 g/dL (3.4-5.0); BUN/Creatinine Ratio 21.6; Bilirubin, Total 1.3 mg/dL (0.2-1.0); Calcium 7.9 mg/dL (8.5-10.1); Total Protein 5.9 g/dL (6.4-8.2)
[2021-04-24] MEDS: oxyCODONE ER 10 MG TAB PO SCH ×2 (08:37→22:15)
[2021-04-24] MEDS: TESTOSTERONE 30 MG TD SCH ×2 (08:38→22:00)
[2021-04-24] MEDS: PANTOPRAZOLE 40 MG TAB PO SCH (08:38)
[2021-04-24] MEDS: ATENOLOL 25 MG TAB PO SCH (08:38)
[2021-04-24] MEDS ORDERED: Azilsartan Medoxomil-Chlorthal (Edarbyclor 40-12.5 mg) TAB PO SCH (10:00)
[2021-04-24] MEDS: BUDESONIDE (INHALATION) 0.5 MG/2 ML NEB NEB SCH ×2 (10:00→19:19)
[2021-04-24] MEDS: DABIGATRAN 75 MG CAP PO SCH ×2 (10:25→22:15)
[2021-04-24] MEDS: FLUTICASONE PROP NASAL SPR 0.05 % (50MCG) 16GM SCH (10:25)
[2021-04-24] MEDS: HYDROmorphone HCL 2 MG/ML VL IV PRN ×2 (12:55→18:38)
[2021-04-24] MEDS: TAMSULOSIN HYDROCHLORIDE 0.4 MG CAP PO SCH (18:00)
[2021-04-25] MEDS: HYDROmorphone HCL 2 MG/ML VL IV PRN ×3 (00:02→10:53)
[2021-04-25 05:28] VITALS: BP 123/59
[2021-04-25] MEDS: LEVOTHYROXINE SODIUM 50 MCG TAB PO SCH (05:37)
[2021-04-25] MEDS: MAGNESIUM OXIDE 400 MG TAB PO SCH (05:37)
[2021-04-25] MEDS: POTASSIUM CHL 20 Meq TABLET PO SCH ×2 (05:37→14:41)
[2021-04-25] MEDS: SODIUM CHLOR 0.9% PF (SALINE LOCK) 10ML VIAL/SYR IV SCH ×2 (05:45→14:40)
[2021-04-25 06:04] LABS: Hematocrit 38.8 % (41.0-53.0); Hemoglobin 13.2 g/dL (13.5-17.5)
[2021-04-25] MEDS: ACCU-CHEK COMFORT CURVE STRIP VI SCH ×3 (06:10→17:00)
[2021-04-25] MEDS: InsuLIN REG 1unit/0.01ml Soln (100units/ml) SC SCH ×3 (06:10→17:00)
[2021-04-25] MEDS: BUDESONIDE (INHALATION) 0.5 MG/2 ML NEB NEB SCH (07:26)
[2021-04-25 09:00] VITALS: BP 127/62
[2021-04-25] MEDS: oxyCODONE ER 10 MG TAB PO SCH (09:57)
[2021-04-25] MEDS: TESTOSTERONE 30 MG TD SCH (10:00)
[2021-04-25] MEDS: FLUTICASONE PROP NASAL SPR 0.05 % (50MCG) 16GM SCH (10:05)
[2021-04-25] MEDS: DABIGATRAN 75 MG CAP PO SCH (10:06)
[2021-04-25] MEDS: DOCUSATE SOD 100 MG CAP PO SCH (10:06)
[2021-04-25] MEDS: PANTOPRAZOLE 40 MG TAB PO SCH (10:06)
[2021-04-25] MEDS: ATENOLOL 25 MG TAB PO SCH (10:07)
[2021-04-25 12:24] VITALS: BP 145/69
[2021-04-25 14:42] VITALS: BP 145/69
[2021-04-25] MEDS: TAMSULOSIN HYDROCHLORIDE 0.4 MG CAP PO SCH (18:00)
== END 2021-04-25 18:30 | disposition home health service (06) | DRG 470 ==
LOC: SUR 07:00 → TELE 11:52 → TELE-CENTR 13:41
PROVIDERS: ADMIT Orthopaedic Surgery Adult Reconstructive Orthopaedic Surgery; ATTEND Internal Medicine Cardiovascular Disease
PROC: 8E0YXBZ Computer Assisted Procedure of Lower Extremity (ICD-10-PCS; 2021-04-23)
PROC: 0SRC0J9 Replacement of Right Knee Joint with Synthetic Substitute, Cemented, Open Approach (ICD-10-PCS; principal; 2021-04-23 09:24)
DX: M17.11 Unilateral primary osteoarthritis, right knee (principal); I50.30 Unspecified diastolic (congestive) heart failure; I25.10 Atherosclerotic heart disease of native coronary artery without angina pectoris; E11.9 Type 2 diabetes mellitus without complications; E03.9 Hypothyroidism, unspecified; J44.9 Chronic obstructive pulmonary disease, unspecified; Z20.822 Contact with and (suspected) exposure to COVID-19; E78.5 Hyperlipidemia, unspecified; F41.9 Anxiety disorder, unspecified; I11.0 Hypertensive heart disease with heart failure; G47.33 Obstructive sleep apnea (adult) (pediatric); K59.00 Constipation, unspecified; Z96.651 Presence of right artificial knee joint; R33.9 Retention of urine, unspecified; Z79.899 Other long term (current) drug therapy; Z79.4 Long term (current) use of insulin; Z95.1 Presence of aortocoronary bypass graft; Z88.6 Allergy status to analgesic agent; Z88.8 Allergy status to other drugs, medicaments and biological substances
CPT/HCPCS: 36415; 73560; 80053; 81001; 82962; 83036; 84443; 85014; 85018; 85025; 85610; 85730; 86850; 86900; 86901; 94640; 97110; 97116; 97163; 97530; G0378; J0131; J0690; J1815; J1885; J2001; J2405; J2704

== ENCOUNTER → 2021-06-13 | Outpatient (CLI) | payer MEDICARE, BC | END | disposition home or self-care (01) | LOC: Rad HDHVI 11:26 | PROVIDERS: ATTEND Internal Medicine Cardiovascular Disease | DX: R09.89 Other specified symptoms and signs involving the circulatory and respiratory systems (principal); Z95.810 Presence of automatic (implantable) cardiac defibrillator | CPT/HCPCS: 71046 ==

== ENCOUNTER → 2021-10-11 | Outpatient (CLI) | payer MEDICARE, BC ==
[~2021-10-11] MED LIST changes: +ASPI1TAB20 PO
== END | disposition home or self-care (01) ==
LOC: Rad HDHVI 09:06
PROVIDERS: ATTEND Internal Medicine Cardiovascular Disease
DX: I08.1 Rheumatic disorders of both mitral and tricuspid valves (principal); I10 Essential (primary) hypertension
CPT/HCPCS: 93306

== ENCOUNTER 2021-11-19 07:19 | Inpatient (IN) | payer MEDICARE, BC ==
[2021-11-16 12:45] LABS: Urine WBC None Seen /hpf (0 - 3)
[2021-11-16 12:46] LABS: Basophils # (auto) 0.1 10 ^3/uL (0-0.2); Basophils % (auto) 0.5 % (0.0-2.0); Eosinophils # (auto) 0.7 10 ^3/uL (0-0.8); Eosinophils % (auto) 6.1 % (0.0-7.0); Hematocrit 43.3 % (41.0-53.0); Hemoglobin 15.1 g/dL (13.5-17.5); Lymphocytes # (auto) 3.4 10 ^3/uL (0.4-5.4); Mean Corpuscular Hemoglobin 30.9 pg (28.0-32.0); Mean Corpuscular Hgb Conc. 34.8 g/dL (32.0-36.0); Mean Corpuscular Volume 88.9 fL (80.0-100.0); Monocytes # (auto) 1.2 10 ^3/uL (0-1.3); Monocytes % (auto) 10.3 % (0.0-12.0); Neutrophils % (auto) 53.1 % (37.0-80.0); Nucleated Red Blood Cells % 0.1 %; Red Blood Cells 4.87 10^6/uL (4.5-5.90); Red Cell Distribution Width 14.5 % (11.8-14.3); White Blood Cell 11.3 10^3/uL (4.4-10.8)
[2021-11-16 12:56] LABS: Urine Bacteria NONE SEEN /hpf (None Seen); Urine Blood Negative /uL (Negative); Urine Specific Gravity 1.006 (1.001-1.035)
[2021-11-16 13:01] LABS: INR 1.08 (0.9-1.15); Partial Thromboplastin Time 31.1 sec (23.6-33.0)
[2021-11-16 13:21] LABS: Albumin 3.8 g/dL (3.4-5.0); Calcium 9.2 mg/dL (8.5-10.1); Potassium 3.3 mmol/L (3.5-5.1)
[2021-11-16 13:24] LABS: BUN/Creatinine Ratio 21.9; Bilirubin, Total 0.9 mg/dL (0.2-1.0); Total Protein 8.6 g/dL (6.4-8.2)
[~2021-11-19] VITALS: Ht 172.7 cm; Wt 99.3 kg
[2021-11-19] MEDS ORDERED: CELECOXIB 100 MG CAP PO ONE (08:30)
[2021-11-19] MEDS ORDERED: ACETAMINOPHEN IV 1000 MG/100ML (10MG/ML) IV ONE (08:30)
[2021-11-19] MEDS ORDERED: PREGABALIN CAPSULE 75 MG CAP PO ONE (08:30)
[2021-11-19] MEDS ORDERED: CELECOXIB 100 MG CAP ONE (08:39)
[2021-11-19] MEDS ORDERED: PREGABALIN CAPSULE 75 MG CAP ONE (08:40)
[2021-11-19] MEDS ORDERED: ACETAMINOPHEN IV 100 ML IV ONE (08:40)
[2021-11-19] MEDS ORDERED: ceFAZolin 1GM/50ML 100 ML IV ONE (08:40)
[2021-11-19] MEDS ORDERED: MORPHINE SULF PF 5 MG/10 ML VIAL ONE ×2 (08:41→09:29)
[2021-11-19] MEDS ORDERED: ONDANSETRON HCL 4 MG/2 ML VIAL ONE (08:42)
[2021-11-19] MEDS ORDERED: fentaNYL CITRATE 100 MCG/2 ML VL ONE (08:42)
[2021-11-19] MEDS ORDERED: SODIUM CHLORIDE LOCK 10 ML ONE (08:42)
[2021-11-19] MEDS ORDERED: DexAMETHasone SOD PHOS 10MG/1ML VIAL INJ ONE (08:42)
[2021-11-19] MEDS ORDERED: BUPIVACAINE/DEXTROSE MPF 0.75% 2 ML AMP IT ONE (08:42)
[2021-11-19] MEDS ORDERED: EPINEPHrine HCL 1 MG/1 ML AMP ONE ×2 (08:42→10:04)
[2021-11-19] MEDS ORDERED: MIDAZOLAM HCL 2MG/2ML 2ml VIAL (1mg/ml) ONE ×2 (08:42→10:08)
[2021-11-19] MEDS ORDERED: PROPOFOL 10 MG/ML 20 ML IV ONE (08:42)
[2021-11-19] MEDS ORDERED: TRANEXAMIC ACID 20 ML ONE (09:15)
[2021-11-19] MEDS ORDERED: BUPIVACAINE 0.25% INJ 50ML VIAL ONE (09:15)
[2021-11-19] MEDS ORDERED: KETOROLAC TROMETH 30 MG/ML 1ML VIAL ONE (09:17)
[2021-11-19] MEDS ORDERED: TETRACAINE 1% INJ 2 ML VIAL IJ ONE (09:28)
[2021-11-19] MEDS ORDERED: VANCOMYCIN HCL 1000 MG VL ONE (09:31)
[2021-11-19] MEDS ORDERED: MORPHINE SULFATE INJ 2 MG/ml SYRG IV PRN (10:15)
[2021-11-19] MEDS: ceFAZolin 1GM/50ML 50 ML IV SCH ×3 (10:15→23:20)
[2021-11-19] MEDS ORDERED: BISACODYL 5 MG EC TAB PO PRN (10:15)
[2021-11-19] MEDS ORDERED: HYDROmorphone HCL 2 MG/ML VL/or syr IV PRN (10:15)
[2021-11-19] MEDS ORDERED: ONDANSETRON HCL 4 MG/2 ML VIAL IV PRN ×2 (10:15→11:30)
[2021-11-19] MEDS ORDERED: HYDROcodone-ACET 5/325MG TAB PO PRN (10:15)
[2021-11-19] MEDS ORDERED: ALPRAZolam 0.5 MG TAB PO PRN (10:15)
[2021-11-19] MEDS ORDERED: NITROGLYCERIN 0.4 MG SL TAB SL PRN (10:15)
[2021-11-19] MEDS ORDERED: HYDROcodone-ACET 10/325MG TAB PO PRN (10:15)
[2021-11-19] MEDS ORDERED: ACCU-CHEK COMFORT CURVE STRIP VI ONE (11:30)
[2021-11-19] MEDS: ACCU-CHEK COMFORT CURVE STRIP VI SCH ×3 (12:06→23:20)
[2021-11-19] MEDS: HYDROmorphone HCL 2 MG/ML VL/or syr IV PRN ×4 (12:11→13:10)
[2021-11-19] MEDS ORDERED: MEPERIDINE HCL (50 MG/ML) 1 ML VIAL ONE (12:29)
[2021-11-19] MEDS ORDERED: MEPERIDINE HCL (50 MG/ML) 1 ML VIAL IV ONE (12:30)
[2021-11-19] MEDS: SODIUM CHLOR 0.9% PF (SALINE LOCK) 10ML VIAL/SYR IV SCH ×2 (14:00→23:18)
[2021-11-19] MEDS: LACTATED RINGER'S 1,000 ML IV SCH (16:50)
[2021-11-19 17:00] VITALS: BP 111/61
[2021-11-19 22:00] VITALS: BP 122/63
[2021-11-19] MEDS ORDERED: DEXTROSE (50%) 50ML SYRG IV PRN (22:00)
[2021-11-19] MEDS: BUDESONIDE 1 MG IN SCH (22:00)
[2021-11-19] MEDS ORDERED: TESTOSTERONE 30 MG TD SCH (22:00)
[2021-11-19] MEDS ORDERED: INSULIN LANTUS (GLARGINE) 1 /0.01ml (100units/ml) SC SCH (22:00)
[2021-11-19] MEDS: ACLIDINIUM BROMIDE IN SCH (22:00)
[2021-11-19] MEDS: DOCUSATE SOD 100 MG CAP PO SCH (23:18)
[2021-11-19] MEDS: DABIGATRAN 75 MG CAP PO SCH (23:18)
[2021-11-19] MEDS: POTASSIUM CHL 20 Meq TABLET PO SCH (23:19)
[2021-11-19] MEDS: MAGNESIUM OXIDE 400 MG TAB PO SCH (23:19)
[2021-11-19] MEDS: InsuLIN REG 1unit/0.01ml Soln (100units/ml) SC SCH (23:21)
[2021-11-20] MEDS: LACTATED RINGER'S 1,000 ML IV SCH ×3 (04:00→16:15)
[2021-11-20 05:00] VITALS: BP 115/58
[2021-11-20 06:13] LABS: Hematocrit 36.8 % (41.0-53.0); Hemoglobin 12.7 g/dL (13.5-17.5)
[2021-11-20] MEDS: POTASSIUM CHL 20 Meq TABLET PO SCH ×3 (07:01→21:47)
[2021-11-20] MEDS: SODIUM CHLOR 0.9% PF (SALINE LOCK) 10ML VIAL/SYR IV SCH ×3 (07:02→21:44)
[2021-11-20] MEDS: ACCU-CHEK COMFORT CURVE STRIP VI SCH ×4 (07:02→21:44)
[2021-11-20] MEDS: InsuLIN REG 1unit/0.01ml Soln (100units/ml) SC SCH ×4 (07:03→21:56)
[2021-11-20 09:00] VITALS: BP 104/58
[2021-11-20] MEDS: FLUTICASONE PROP NASAL SPR 0.05 % (50MCG) 16GM SCH (10:00)
[2021-11-20] MEDS: AZILSARTAN MEDOXOMIL CHLORTHAL PO SCH ×2 (10:00→12:10)
[2021-11-20] MEDS: DABIGATRAN 75 MG CAP PO SCH ×2 (11:47→21:47)
[2021-11-20] MEDS: POLYETHYLENE GLYCOL 17 GM PWDR PO SCH (11:49)
[2021-11-20] MEDS: MAGNESIUM OXIDE 400 MG TAB PO SCH ×2 (11:51→21:44)
[2021-11-20] MEDS: ATORVASTATIN 20 MG TAB PO SCH (11:51)
[2021-11-20] MEDS: LEVOTHYROXINE SODIUM 50 MCG TAB PO SCH (11:52)
[2021-11-20] MEDS: DOCUSATE SOD 100 MG CAP PO SCH ×2 (12:02→21:44)
[2021-11-20] MEDS: ATENOLOL 25 MG TAB PO SCH (12:02)
[2021-11-20] MEDS: ACLIDINIUM BROMIDE IN SCH ×2 (12:08→21:43)
[2021-11-20] MEDS: BUDESONIDE 1 MG IN SCH ×2 (12:09→21:44)
[2021-11-20 13:00] VITALS: BP 123/65
[2021-11-20 17:06] VITALS: BP 125/68
[2021-11-20] MEDS ORDERED: BISACODYL 5 MG EC TAB PO PRN (20:45)
[2021-11-20] MEDS: ACETAMINOPHEN 325 MG TAB PO PRN (20:48)
[2021-11-20 22:00] VITALS: BP 147/71
[2021-11-21] MEDS: ACETAMINOPHEN 325 MG TAB PO PRN ×3 (02:57→15:53)
[2021-11-21 05:00] VITALS: BP 137/68
[2021-11-21 05:22] LABS: Hematocrit 32.9 % (41.0-53.0)
[2021-11-21 05:25] LABS: Hemoglobin 10.7 g/dL (13.5-17.5)
[2021-11-21] MEDS: ACCU-CHEK COMFORT CURVE STRIP VI SCH ×3 (06:16→17:00)
[2021-11-21] MEDS: InsuLIN REG 1unit/0.01ml Soln (100units/ml) SC SCH ×3 (06:16→17:10)
[2021-11-21] MEDS: POTASSIUM CHL 20 Meq TABLET PO SCH ×2 (06:16→13:41)
[2021-11-21] MEDS: SODIUM CHLOR 0.9% PF (SALINE LOCK) 10ML VIAL/SYR IV SCH ×2 (06:16→13:44)
[2021-11-21 09:00] VITALS: BP 144/72
[2021-11-21] MEDS: DABIGATRAN 75 MG CAP PO SCH (09:05)
[2021-11-21] MEDS: MAGNESIUM OXIDE 400 MG TAB PO SCH (09:05)
[2021-11-21] MEDS: LEVOTHYROXINE SODIUM 50 MCG TAB PO SCH (09:06)
[2021-11-21] MEDS: ATORVASTATIN 20 MG TAB PO SCH (09:07)
[2021-11-21] MEDS: ATENOLOL 25 MG TAB PO SCH (09:07)
[2021-11-21] MEDS: DOCUSATE SOD 100 MG CAP PO SCH (09:07)
[2021-11-21] MEDS: BUDESONIDE 1 MG IN SCH (09:08)
[2021-11-21] MEDS: ACLIDINIUM BROMIDE IN SCH (09:08)
[2021-11-21] MEDS: POLYETHYLENE GLYCOL 17 GM PWDR PO SCH (09:08)
[2021-11-21] MEDS: FLUTICASONE PROP NASAL SPR 0.05 % (50MCG) 16GM SCH (10:01)
[2021-11-21] MEDS ORDERED: GLYCERIN ADULT RECTAL SUPP PR ONE (10:15)
[2021-11-21 13:00] VITALS: BP 140/78
[2021-11-21 17:00] VITALS: BP 145/77
[2021-11-21 17:11] VITALS: BP 140/78
== END 2021-11-21 17:50 | disposition home health service (06) | DRG 470 ==
LOC: SUR 07:19 → TELE 10:08 → TELE-EAST 15:36
PROVIDERS: ADMIT Orthopaedic Surgery Adult Reconstructive Orthopaedic Surgery; ATTEND Orthopaedic Surgery Adult Reconstructive Orthopaedic Surgery
PROC: 8E0YXBZ Computer Assisted Procedure of Lower Extremity (ICD-10-PCS; 2021-11-19)
PROC: 0SRD0J9 Replacement of Left Knee Joint with Synthetic Substitute, Cemented, Open Approach (ICD-10-PCS; principal; 2021-11-19 09:52)
DX: M17.12 Unilateral primary osteoarthritis, left knee (principal); I50.20 Unspecified systolic (congestive) heart failure; E11.40 Type 2 diabetes mellitus with diabetic neuropathy, unspecified; J44.9 Chronic obstructive pulmonary disease, unspecified; I11.0 Hypertensive heart disease with heart failure; Z20.822 Contact with and (suspected) exposure to COVID-19; Z96.652 Presence of left artificial knee joint; F32.9 Major depressive disorder, single episode, unspecified; K21.9 Gastro-esophageal reflux disease without esophagitis; E11.9 Type 2 diabetes mellitus without complications; E66.9 Obesity, unspecified; I25.10 Atherosclerotic heart disease of native coronary artery without angina pectoris; I25.2 Old myocardial infarction; Z82.49 Family history of ischemic heart disease and other diseases of the circulatory system; Z87.891 Personal history of nicotine dependence; Z95.1 Presence of aortocoronary bypass graft; Z88.1 Allergy status to other antibiotic agents; Z88.5 Allergy status to narcotic agent; Z68.29 Body mass index [BMI] 29.0-29.9, adult; Z98.61 Coronary angioplasty status; Z86.73 Personal history of transient ischemic attack (TIA), and cerebral infarction without residual deficits
CPT/HCPCS: 36415; 73562; 80053; 81001; 82962; 85014; 85018; 85025; 85610; 85730; 86850; 86900; 86901; 97110; 97116; 97530; C1713; G0378; J0131; J0171; J0690; J1100; J1815; J1885; J2250; J2405; J2704; J3490

== ENCOUNTER → 2022-03-20 | Outpatient (CLI) | payer MEDICARE, BC | END | disposition home or self-care (01) | LOC: Rad HDHVI 14:51 | PROVIDERS: ATTEND Internal Medicine Cardiovascular Disease | DX: I65.23 Occlusion and stenosis of bilateral carotid arteries (principal); I70.203 Unspecified atherosclerosis of native arteries of extremities, bilateral legs; R60.9 Edema, unspecified; I77.1 Stricture of artery | CPT/HCPCS: 93880; 93925 ==

== ENCOUNTER → 2022-09-18 | Outpatient (CLI) | payer MEDICARE, BC ==
[2022-09-18 08:57] VITALS: BP 155/89
[2022-09-18 09:21] VITALS: BP 142/76
== END | disposition home or self-care (01) ==
LOC: Rad HDHVI 08:52
PROVIDERS: ATTEND Internal Medicine Cardiovascular Disease
DX: Z01.818 Encounter for other preprocedural examination (principal); R94.31 Abnormal electrocardiogram [ECG] [EKG]; I49.3 Ventricular premature depolarization; I11.0 Hypertensive heart disease with heart failure; I50.43 Acute on chronic combined systolic (congestive) and diastolic (congestive) heart failure; R06.02 Shortness of breath; I25.5 Ischemic cardiomyopathy; Z95.0 Presence of cardiac pacemaker
CPT/HCPCS: 71046; 93005; G0463

== ENCOUNTER 2022-09-19 08:52 | Day surgery (SDC) | payer MEDICARE, BC ==
[2022-09-18 10:25] LABS: Basophils # (auto) 0 10 ^3/uL (0-0.2); Basophils % (auto) 0.3 % (0.0-2.0); Eosinophils # (auto) 0.5 10 ^3/uL (0-0.8); Eosinophils % (auto) 5.2 % (0.0-7.0); Hematocrit 45.4 % (41.0-53.0); Hemoglobin 15.8 g/dL (13.5-17.5); Lymphocytes # (auto) 2.2 10 ^3/uL (0.4-5.4); Lymphocytes % (auto) 21.9 % (10.0-50.0); Mean Corpuscular Hemoglobin 31.1 pg (28.0-32.0); Mean Corpuscular Hgb Conc. 34.9 g/dL (32.0-36.0); Monocytes # (auto) 0.9 10 ^3/uL (0-1.3); Monocytes % (auto) 8.7 % (0.0-12.0); Neutrophils # (auto) 6.5 10 ^3/uL (1.6-8.6); Neutrophils % (auto) 63.9 % (37.0-80.0); Nucleated Red Blood Cells % 0.2 %; White Blood Cell 10.2 10^3/uL (4.4-10.8)
[2022-09-18 10:33] LABS: INR 1.03 (0.9-1.15); Partial Thromboplastin Time 30.1 sec (24.6-33.4)
[2022-09-18 10:46] LABS: Calcium 9.9 mg/dL (8.5-10.1); Potassium 3.8 mmol/L (3.5-5.1)
[~2022-09-19] VITALS: Ht 177.8 cm; Wt 90.7 kg
[~2022-09-19 08:52] MED LIST changes: -ASPI1TAB20 PO; -FLU05NSL
[2022-09-19] MEDS ORDERED: VANCOMYCIN 1GM/250ML 250 ML IV ONE (10:15)
[2022-09-19] MEDS ORDERED: fentaNYL CITRATE 100 MCG/2 ML VL ONE ×2 (14:36→15:26)
[2022-09-19] MEDS ORDERED: LIDOCAINE 2%HCL (LOCAL ANESTH.) INJ 20ML MDV ONE (14:36)
[2022-09-19] MEDS ORDERED: MIDAZOLAM HCL 2MG/2ML 2ml VIAL (1mg/ml) ONE ×2 (14:36→15:26)
[2022-09-19] MEDS ORDERED: VANCOMYCIN HCL 1000 MG VL ONE (14:37)
[2022-09-19 16:17] VITALS: BP 152/86
[2022-09-19 16:31] VITALS: BP 140/71
[2022-09-19 16:46] VITALS: BP 126/68
[2022-09-19 17:01] VITALS: BP 128/68
[2022-09-19 17:16] VITALS: BP 132/71
== END 2022-09-19 17:45 | disposition home or self-care (01) ==
LOC: CATH 08:52
PROVIDERS: ADMIT Orthopaedic Surgery Adult Reconstructive Orthopaedic Surgery; ATTEND Internal Medicine Cardiovascular Disease
DX: Z45.02 Encounter for adjustment and management of automatic implantable cardiac defibrillator (principal); I50.20 Unspecified systolic (congestive) heart failure; E11.40 Type 2 diabetes mellitus with diabetic neuropathy, unspecified; J44.9 Chronic obstructive pulmonary disease, unspecified; I11.0 Hypertensive heart disease with heart failure; Z20.822 Contact with and (suspected) exposure to COVID-19; Z96.652 Presence of left artificial knee joint; F32.9 Major depressive disorder, single episode, unspecified; K21.9 Gastro-esophageal reflux disease without esophagitis; E11.9 Type 2 diabetes mellitus without complications; E66.9 Obesity, unspecified; I25.10 Atherosclerotic heart disease of native coronary artery without angina pectoris; I25.2 Old myocardial infarction; M17.12 Unilateral primary osteoarthritis, left knee; Z82.49 Family history of ischemic heart disease and other diseases of the circulatory system; Z87.891 Personal history of nicotine dependence; Z95.1 Presence of aortocoronary bypass graft; Z88.1 Allergy status to other antibiotic agents; Z88.5 Allergy status to narcotic agent; Z68.29 Body mass index [BMI] 29.0-29.9, adult; Z98.61 Coronary angioplasty status; Z86.73 Personal history of transient ischemic attack (TIA), and cerebral infarction without residual deficits; Z01.812 Encounter for preprocedural laboratory examination
CPT/HCPCS: 33264; 36415; 80048; 85025; 85610; 85730; C1882; J2250; J3010; J3370; 99152

== ENCOUNTER → 2022-12-23 | Outpatient (CLI) | payer MEDICARE, BC ==
[~2022-12-23] MED LIST changes: -ACLI1AER2 IN; +ACLI400A5 IN; +MVI in SODIUM CHLORIDE 0.9% 1,000 ML IVB ONE; +ONDANSETRON HCL 4 MG/2 ML VIAL IV ONE; +ONDANSETRON HCL 4 MG/2 ML VIAL ONE
[2022-12-23 10:25] VITALS: BP 173/85; PULSE 65; RESP 20; O2SAT 98
[2022-12-23 14:30] VITALS: BP 136/64; PULSE 65; RESP 20; O2SAT 98
== END | disposition home or self-care (01) ==
LOC: CHF HDHVI 10:28
PROVIDERS: ATTEND Internal Medicine Cardiovascular Disease
DX: E86.0 Dehydration (principal); I25.10 Atherosclerotic heart disease of native coronary artery without angina pectoris; J44.9 Chronic obstructive pulmonary disease, unspecified; K21.9 Gastro-esophageal reflux disease without esophagitis; I11.0 Hypertensive heart disease with heart failure; I50.43 Acute on chronic combined systolic (congestive) and diastolic (congestive) heart failure; I25.2 Old myocardial infarction; E11.40 Type 2 diabetes mellitus with diabetic neuropathy, unspecified; Z87.891 Personal history of nicotine dependence; Z86.73 Personal history of transient ischemic attack (TIA), and cerebral infarction without residual deficits; Z88.5 Allergy status to narcotic agent
CPT/HCPCS: 96365; 96366; 96375; G0463; J2405; J7030; 96360; 96361

== ENCOUNTER → 2023-01-22 | Outpatient (CLI) | payer MEDICARE, BC ==
[~2023-01-22] VITALS: Ht 177.8 cm; Wt 90.7 kg
[~2023-01-22] MED LIST changes: +ADENOSINE 76 MG in GIVE UN-DILUTED 0 ML IV ONE; +ADENOSINE 90 MG/30 ML INJ IV ONE; -MVI in SODIUM CHLORIDE 0.9% 1,000 ML IVB ONE; -ONDANSETRON HCL 4 MG/2 ML VIAL IV ONE; -ONDANSETRON HCL 4 MG/2 ML VIAL ONE
== END | disposition home or self-care (01) ==
LOC: Rad HDHVI 09:19
PROVIDERS: ATTEND Internal Medicine Cardiovascular Disease
DX: I11.0 Hypertensive heart disease with heart failure (principal); I50.43 Acute on chronic combined systolic (congestive) and diastolic (congestive) heart failure; I25.10 Atherosclerotic heart disease of native coronary artery without angina pectoris; R06.02 Shortness of breath; E11.9 Type 2 diabetes mellitus without complications; I25.5 Ischemic cardiomyopathy; E78.00 Pure hypercholesterolemia, unspecified; Z95.0 Presence of cardiac pacemaker; Z95.1 Presence of aortocoronary bypass graft; Z82.49 Family history of ischemic heart disease and other diseases of the circulatory system
CPT/HCPCS: 78452; 93005; 96374; 96375; A9500; J0153

== ENCOUNTER → 2023-02-12 | Outpatient (CLI) | payer MEDICARE, BC ==
[~2023-02-12] MED LIST changes: -ADENOSINE 76 MG in GIVE UN-DILUTED 0 ML IV ONE; -ADENOSINE 90 MG/30 ML INJ IV ONE
== END | disposition home or self-care (01) ==
LOC: Rad HDHVI 09:02
PROVIDERS: ATTEND Internal Medicine Cardiovascular Disease
DX: J98.11 Atelectasis (principal); R06.02 Shortness of breath
CPT/HCPCS: 71046

== ENCOUNTER → 2023-06-23 | Outpatient (CLI) | payer MEDICARE, BC ==
[~2023-06-23] MED LIST changes: +ALBUTEROL SULF 2.5 MG/0.5ML(0.5%) NEB SOLN NEB ONE; +ALBUTEROL SULF 2.5 MG/0.5ML(0.5%) NEB SOLN ONE; +cefTRIAXone 1GM/50ML D5W 50 ML IV ONE
[2023-06-23 11:44] VITALS: BP 130/78; PULSE 86; RESP 18; O2SAT 95
[2023-06-23 12:55] VITALS: BP 128/72; PULSE 65; RESP 18; O2SAT 95
== END | disposition home or self-care (01) ==
LOC: CHF HDHVI 11:44
PROVIDERS: ATTEND Internal Medicine Cardiovascular Disease
DX: J20.9 Acute bronchitis, unspecified (principal); R06.02 Shortness of breath; I11.0 Hypertensive heart disease with heart failure; I50.43 Acute on chronic combined systolic (congestive) and diastolic (congestive) heart failure; I25.10 Atherosclerotic heart disease of native coronary artery without angina pectoris; I25.5 Ischemic cardiomyopathy; E11.9 Type 2 diabetes mellitus without complications; E78.00 Pure hypercholesterolemia, unspecified; Z95.1 Presence of aortocoronary bypass graft
CPT/HCPCS: 94640; 96365; G0463; J0696

== ENCOUNTER → 2023-12-01 | Outpatient (CLI) | payer MEDICARE, BC ==
[~2023-12-01] MED LIST changes: -ALBUTEROL SULF 2.5 MG/0.5ML(0.5%) NEB SOLN NEB ONE; -ALBUTEROL SULF 2.5 MG/0.5ML(0.5%) NEB SOLN ONE; -cefTRIAXone 1GM/50ML D5W 50 ML IV ONE
[2023-12-01 10:23] VITALS: BP 144/83; PULSE 65; RESP 16; O2SAT 94
[2023-12-01] MEDS: BUMETANIDE INJECTION 10 ML ONE (10:33)
[2023-12-01] MEDS: POTASSIUM CHL 10 Meq TABLET PO ONE (10:33)
[2023-12-01] MEDS: BUMETANIDE 2.5mg/10ml (0.25 mg/ml) INJ IV ONE (10:36)
[2023-12-01] MEDS: POTASSIUM CHL 20 Meq TABLET PO ONE (10:39)
[2023-12-01 10:59] VITALS: BP 159/85; PULSE 65; RESP 16; O2SAT 94
== END | disposition home or self-care (01) ==
LOC: CHF HDHVI 10:27
PROVIDERS: ATTEND Internal Medicine Cardiovascular Disease
DX: R60.9 Edema, unspecified (principal); R06.02 Shortness of breath
CPT/HCPCS: 96374; G0463

== ENCOUNTER → 2023-12-03 | Outpatient (CLI) | payer MEDICARE, BC | END | disposition home or self-care (01) | LOC: Rad HDHVI 08:54 | PROVIDERS: ATTEND Internal Medicine Cardiovascular Disease | DX: I82.403 Acute embolism and thrombosis of unspecified deep veins of lower extremity, bilateral (principal) | CPT/HCPCS: 93970 ==

== ENCOUNTER → 2023-12-29 | Outpatient (CLI) | payer MEDICARE, BC | END | disposition home or self-care (01) | LOC: Rad HDHVI 08:55 | PROVIDERS: ATTEND Internal Medicine Cardiovascular Disease | DX: I50.23 Acute on chronic systolic (congestive) heart failure (principal); R06.02 Shortness of breath | CPT/HCPCS: 93306 ==

== ENCOUNTER → 2024-01-02 | Outpatient (CLI) | payer MEDICARE, BC ==
[~2024-01-02] VITALS: Ht 175.3 cm; Wt 95.3 kg
[~2024-01-02] MED LIST changes: +ADENOSINE 80 MG in GIVE UN-DILUTED 0 ML IV ONE; +ADENOSINE 90 MG/30 ML INJ IV ONE
== END | disposition home or self-care (01) ==
LOC: Rad HDHVI 08:53
PROVIDERS: ATTEND Internal Medicine Cardiovascular Disease
DX: I11.0 Hypertensive heart disease with heart failure (principal); I50.23 Acute on chronic systolic (congestive) heart failure; I25.10 Atherosclerotic heart disease of native coronary artery without angina pectoris; J44.9 Chronic obstructive pulmonary disease, unspecified; I25.5 Ischemic cardiomyopathy; I42.1 Obstructive hypertrophic cardiomyopathy; R06.02 Shortness of breath; E78.00 Pure hypercholesterolemia, unspecified; E11.9 Type 2 diabetes mellitus without complications; I25.2 Old myocardial infarction; Z95.0 Presence of cardiac pacemaker
CPT/HCPCS: 78452; 93005; 96374; 96375; A9500; J0153

== ENCOUNTER 2024-08-09 09:33 | Inpatient (IN) | payer MEDICARE, BC ==
[~2024-08-09] VITALS: Ht 175.3 cm; Wt 96.6 kg
[2024-08-09 01:00] VITALS: BP 121/58; PULSE 65; RESP 18; TEMP 97.9; O2SAT 94
[~2024-08-09 09:33] MED LIST changes: -ADENOSINE 80 MG in GIVE UN-DILUTED 0 ML IV ONE; -ADENOSINE 90 MG/30 ML INJ IV ONE; -LEV50T PO; +LEVO-848 PO
--- NOTE | 2024-08-09 10:13 | ED.PDOC ---
History of Present Illness HPI Comments 79-year-old male with PMHx DM, HTN presents with a chief complaint of lower leg swelling, warmth, and redness. Patient states that he was sent to the ER by his Data Security Consultant, Dr. Meadows. Patient reports that he just recently finished a round of Cipro for a possible infection from his right greater toe having a callus that split open. Patient has swelling, warmth and redness to this right lower leg. Patient states that his starch and prosize mixer is unsure if he has an infection vs. DVT. Patient rates pain a 4/10 at this time. Chief Complaint: Lower Extremity Time Seen by MD: 09:44 Primary Care Provider: none Reviewed Notes: Medications, Allergies Allergies: Coded Allergies: Erythromycin (Verified Allergy, Mild, RASH, 09/18/22) Morphine (Unverified Adverse Reaction, Mild, vertigo/N/V, 09/18/22) Home Meds Reported Medications Aclidinium Kennard (Tudorza Pressair) 400 Mcg/Act Aer, 1 PUFF IN BID, AER 02/19/21 Insulin Glargine (Toujeo Solostar) 300 Unit/Ml Inj, 12 UNIT SC HS for DIABETES, INJ 02/19/21 Levothyroxine Sodium (SYNTHROID TABLET) 50 Mcg Tb, 1 TAB PO DAILY, #30 TAB 5 Refills 02/19/21 Azilsartan Medoxomil-Chlorthal (Edarbyclor 40-12.5 mg) 1 Tab Tab, 1 TAB PO DAILY, TAB 02/19/21 Alprazolam (Xanax) 0.5 Mg Tb, 1 TAB PO DAILYP PRN for ANXIETY, #30 TAB 08/04/17 Budesonide (Inhalation) (Budesonide) 1 Mg/2 Ml Allyson, 1 MG IN BID 08/04/17 Dabigatran Etexilate Mesylate (Pradaxa) 150 Mg Cap, 150 MG PO BID for STOPPED 09/14/22, CAP 06/05/15 Testosterone (AXIRON) 30 Mg/Act Kimberly, 30 MG TD BID 06/05/15 Magnesium Oxide (MAGNESIUM OXIDE) 400 Mg Tab, 400 MG PO BID 08/31/12 Potassium Chloride (Klor-Con) 20 Meq Pow, 20 MEQ PO TID 08/31/12 Atorvastatin Calcium (Lipitor) 10 Mg Tab, 10 MG PO DAILY 08/31/12 Atenolol (Atenolol) 25 Mg Tab, 25 MG PO DAILY 08/31/12 Information Source: Patient Mode of Arrival: Ambulatory Severity: Moderate Timing: Days Duration: Since onset Prehospital treatment: None Past Medical History PAST MEDICAL HISTORY: DM, HTN Surgical History: Pacemaker Family History Family History: Reviewed,noncontributory to illness Social History Smoker: Non-Smoker Alcohol: Denies ETOH Use Drugs: Denies Drug Use Lives In: Home Constitutional: denies: chills, diaphoresis, fatigue, fever, malaise, sweats, weakness, others EENTM: denies: blurred vision, double vision, ear bleeding, ear discharge, ear drainage, ear pain, ear ringing, eye pain, eye redness, hearing loss, mouth pain, mouth swelling, nasal discharge, nose bleeding, nose congestion, nose pain, photophobia, tearing, throat pain, throat swelling, voice changes, others Respiratory: denies: cough, hemoptysis, orthopnea, SOB at rest, shortness of breath, SOB with excertion, stridor, wheezing, others Cardiovascular: reports: edema (RIGHT LOWER LEG); denies: chest pain, dizzy spells, diaphoresis, Dyspnea on exertion, irregular heart beat, left arm pain, lightheadedness, palpitations, PND, syncope, others Gastrointestinal: denies: abdomen distended, abdominal pain, blood streaked bowels, constipated, diarrhea, dysphagia, difficulty swallowing, hematemesis, melena, nausea, poor appetite, poor fluid intake, rectal bleeding, rectal pain, vomiting, others Genitourinary: denies: burning, dysuria, flank pain, frequency, hematuria, incontinence, penile discharge, penile sore, pain, testicle pain, testicle swelling, urgency, others Neurological: denies: dizziness, fainting, headache, left sided numbness, left sided weakness, numbness, paresthesia, pre-existing deficit, right sided numbness, right sided weakness, seizure, speech problems, tingling, tremors, weakness, others Musculoskeletal: denies: back pain, gout, joint pain, joint swelling, muscle pain, muscle stiffness, neck pain, others Integumetry: reports: change in color (ERYTHEMATOUS RIGHT LOWER LEG), wounds (RIGHT GREAT TOE CALLUS SPLIT); denies: bruises, change in hair/nails, dryness, laceration, lesions, lumps, rash, others Allergic/Immunocompromised: denies: Difficulty Healing, Frequent Infections, Hives, Itching, others Hematologic/Lymphatic: denies: anemia, blood clots, easy bleeding, easy bruising, swollen glands, others Endocrine: denies: excessive hunger, excessive sweating, excessive thirst, excessive urination, flushing, intolerance to cold, intolerance to heat, unexplained weight gain, unexplained weight loss, others Psychiatric: denies: anxiety, bipolar disorder, depression, hopeless, panic disorder, schizophrenia, sleepless, suicidal, others All Other Systems: Reviewed and Negative Physical Exam General Appearance: No Apparent Distress, Normal HEENT: Normal ENT Inspection, Pharynx Normal, TMs Normal Neck: Full Range of Motion, Non-Tender, Normal, Normal Inspection Respiratory: Chest Non-Tender, Lungs Clear, No Accessory Muscle Use, No Respiratory Distress, Normal Breath Sounds Cardiovascular: No Edema, No JVD, No Murmur, No Gallop, Normal Peripheral Pulses, Regular Rate/Rhythm Breast Exam: Deferred Gastrointestinal: No Organomegaly, Non Tender, No Pulsatile Mass, Normal Bowel Sounds, Soft Genitalia: Deferred Pelvic: Deferred Rectal: Deferred Extremities: Swelling, Tender, Other (SWELLING, WARMTH, AND TENDERNESS TO RIGHT FOOT, RIGHT LOWER LEG. ) Musculoskeletal : Apperance: Normal Neurologic: Alert, agate setter II-XII nml as Tested, No Motor Deficits, Normal Affect, Normal Mood, No Sensory Deficits Cerebellar Function: Normal Reflexes: Normal Skin: Dry, Normal Color, Warm Lymphatic: No Adenopathy Was a procedure done? Was a procedure done?: No (d) Differential Dx Considerations may include: Cellulitis, DVT, osteo myelitis X-Ray, Labs, Meds, VS Vital Signs Date Time Temp Pulse Resp B/P (MAP) Pulse Ox O2 Delivery O2 Flow Rate FiO2 08/09/24 10:01 Room Air* 0 21 08/09/24 09:49 98.2 74 16 149/74 (99) 95 Lab Test 08/09/24 10:04 08/09/24 09:42 Range/Units White Blood Count 11.2 H 4.4-10.8 10^3/uL Red Blood Count 5.08 4.5-5.90 10^6/uL Hemoglobin 15.7 13.5-17.5 g/dL Hematocrit 45.5 41.0-53.0 % Mean Corpuscular Volume 89.6 80.0-100.0 fL Mean Corpuscular Hemoglobin 31.0 28.0-32.0 pg Mean Corpuscular Hemoglobin Concent 34.6 32.0-36.0 g/dL Red Cell Distribution Width 13.4 11.8-14.3 % Platelet Count 158 140-450 10^3/uL Mean Platelet Volume 7.8 6.9-10.8 fL Neutrophils (%) (Auto) 65.4 37.0-80.0 % Lymphocytes (%) (Auto) 21.4 10.0-50.0 % Monocytes (%) (Auto) 8.6 0.0-12.0 % Eosinophils (%) (Auto) 4.2 0.0-7.0 % Basophils (%) (Auto) 0.4 0.0-2.0 % Neutrophils # (Auto) 7.3 1.6-8.6 10 ^3/uL Lymphocytes # (Auto) 2.4 0.4-5.4 10 ^3/uL Monocytes # (Auto) 1.0 0-1.3 10 ^3/uL Eosinophils # (Auto) 0.5 0-0.8 10 ^3/uL Basophils # (Auto) 0 0-0.2 10 ^3/uL Nucleated Red Blood Cells 0.0 % Prothrombin Time 11.8 9.3-11.8 sec Prothrombin Time INR 1.13 0.9-1.15 Activated Partial Thromboplast Time 38.4 H 24.5-34.5 SEC D-Dimer, Quantitative 0.26 0.0-0.49 mg/L FEU Sodium Level 136 136-145 mmol/L Potassium Level 3.2 L 3.5-5.1 mmol/L Chloride Level 100 98-107 mmol/L Carbon Dioxide Level 31 20-31 mmol/L Anion Gap 5 5-15 Blood Urea Nitrogen 16 9-23 mg/dL Creatinine 1.07 0.700-1.30 mg/dL Glomerular Filtration Rate Calc 71 >90 mL/min BUN/Creatinine Ratio 15.0 10.0-20.0 Serum Glucose 137 H 74-106 mg/dL Lactic Acid Level 1.1 0.4-2.0 mmol/L Calcium Level 10.6 H 8.7-10.4 mg/dL POC Glucose 146 H 70-106 mg/dl Time of 1ST Reevaluation: 10:14 Reevaluation 1ST: Unchanged Patient Education/Counseling: Diagnosis, Treatment, Prognosis Family Education/Counseling: Diagnosis, Treatment, Prognosis Departure 1 Departure Time of Disposition: 10:46 (Patient with worsening cellulitis of the right lower extremity. We will empirically cover patient with antibiotics and admit patient for further workup. Patient is not septic at this time.) Impression: Primary Impression: Cellulitis of right lower extremity Disposition: ADMITTED INPATIENT Admit to: Med Surg Condition: Serious Critical Care Note Critical Care Time?: Yes Critical care comment: Concern for blood clot Authorized and Performed by: Mariano Bower MD Total critical care time: Approximately 36 minutes Due to a high probability of clinically significant, life threatening deterioration, the patient required my highest level of preparedness to intervene emergently and I personally spent this critical care time directly and personally managing the patient. This critical care time included obtaining a history; examining the patient; pulse oximetry; ordering and review of studies; arranging urgent treatment with development of a management plan; evaluation of patient's response to treatment; frequent reassessment; and, discussions with other providers. This critical care time was performed to assess and manage the high probability of imminent, life-threatening deterioration that could result in multi-organ failure. It was exclusive of separately billable procedures and treating other patients and teaching time. Please see my other sections and the rest of the note for further information on patient assessment and treatment. Stability Stability form required: No I personally scribed for MARIANO BOWER MD ([email or web address]) on 08/09/24 at 10:13. Electronically submitted by Williams Holcomb ([email or web address]). MARIANO BOWER MD Aug 09, 2024 10:13
[2024-08-09 10:21] LABS: Basophils # (auto) 0 10 ^3/uL (0-0.2); Basophils % (auto) 0.4 % (0.0-2.0); Eosinophils # (auto) 0.5 10 ^3/uL (0-0.8); Eosinophils % (auto) 4.2 % (0.0-7.0); Hematocrit 45.5 % (41.0-53.0); Hemoglobin 15.7 g/dL (13.5-17.5); Lymphocytes # (auto) 2.4 10 ^3/uL (0.4-5.4); Lymphocytes % (auto) 21.4 % (10.0-50.0); Mean Corpuscular Hgb Conc. 34.6 g/dL (32.0-36.0); Mean Corpuscular Volume 89.6 fL (80.0-100.0); Monocytes % (auto) 8.6 % (0.0-12.0); Neutrophils # (auto) 7.3 10 ^3/uL (1.6-8.6); Neutrophils % (auto) 65.4 % (37.0-80.0); Platelet Count (auto) 158 10^3/uL (140-450); Red Blood Cells 5.08 10^6/uL (4.5-5.90); Red Cell Distribution Width 13.4 % (11.8-14.3); White Blood Cell 11.2 10^3/uL (4.4-10.8)
[2024-08-09 10:27] LABS: Chloride 100 mmol/L (98-107)
[2024-08-09 10:28] LABS: Anion Gap 5 (5-15)
[2024-08-09 10:32] LABS: Calcium 10.6 mg/dL (8.7-10.4); Carbon Dioxide 31 mmol/L (20-31); Potassium 3.2 mmol/L (3.5-5.1); Sodium 136 mmol/L (136-145)
[2024-08-09 10:33] LABS: Blood Urea Nitrogen 16 mg/dL (9-23)
[2024-08-09 10:36] LABS: INR 1.13 (0.9-1.15); Partial Thromboplastin Time 38.4 SEC (24.5-34.5); Prothrombin Time 11.8 sec (9.3-11.8)
--- NOTE | 2024-08-09 10:36 | DVH ---
Right lower extremity venous duplex Clinical History: right leg pain Comparison: None Technique: Duplex Doppler evaluation of the deep venous system of the right lower extremity from the common femo ral vein to the popliteal vein including color Doppler and spectral/pulsed waveform analysis was perf ormed. Findings: The common femoral vein demonstrates appropriate compressibility and waveform variability. There is compressibility/patency of the great saphenous vein at the proximal thigh. The femoral vein demonstrates appropriate compressibility and waveform variability. The deep femoral vein demonstrates appropriate compressibility and waveform variability. The popliteal vein demonstrates appropriate compressibility and waveform variability. There is normal compressibility at the tibioperoneal trunk. Impression: No right femoropopliteal venous thrombosis.
[2024-08-09 10:39] LABS: Glucose 137 mg/dL (74-106)
[2024-08-09] MEDS: VANCOMYCIN 1GM/250ML KIT 200 ML IV ONE (10:45)
[2024-08-09] MEDS ORDERED: BUME2TAB5 PO (11:50)
[2024-08-09] MEDS ORDERED: ONDANSETRON HCL 4 MG/2 ML VIAL IV PRN ×2 (12:15→12:30)
[2024-08-09] MEDS ORDERED: HYDROcodone-ACET 5/325MG TAB PO PRN ×2 (12:15→12:30)
[2024-08-09] MEDS ORDERED: DOCUSATE SOD 100 MG CAP PO PRN ×2 (12:15→12:30)
[2024-08-09] MEDS ORDERED: ACETAMINOPHEN 325 MG TAB PO PRN ×2 (12:15→12:30)
[2024-08-09] MEDS ORDERED: SODIUM CHLORIDE 0.9% 1,000 ML IV ONE (12:30)
[2024-08-09] MEDS: SODIUM CHLORIDE 0.9% 1,000 ML IV ONE (13:37)
--- NOTE | 2024-08-09 13:57 | DVHHP2 ---
History of Present Illness Reason for Visit: right lower extremity pain, swelling History of Present Illness Veto Ruvalcaba is a 79-year-old male with past medical history of diabetes, CHF, COPD, Sleep apnea, uses a home CPAP machine, coronary artery disease, hypertension, and hyperlipidemia, who came in for right leg swelling, redness, and pain. Patient states he noticed the redness and swelling last night. States there is minimal pain. He went to his manager retail this morning and was told to go to the hospital to have it evaluated. Patient has been seen a manager retail regarding an open wound to his right great toe. He just finished a round of Cipro to treat the infection. The wound is open and continues to have drainage. Cardiovascular: CAD, CHF, HTN, hyperipidemia Pulmonary: COPD, Other (Sleep apnea, uses a home CPAP machine) Endocrine: Diabetes Past Surgical History: Appendectomy, Cholecystectomy, CABG (x 4), Other (Pacemaker), Total knee replacement (bilateral) Smoke: No ALCOHOL: none Drugs: None Lives: with Family Domestic Violence: Neg Review of Systems Constitutional: No: Fever, Chills, Sweats, Weakness, Malaise, Other Eyes: No: Pain, Vision change, Conjunctivae inflammation, Eyelid inflammation, Other, Redness ENT: No: Ear pain, Ear discharge, Nose pain, Nose discharge, Nose congestion, Mouth pain, Mouth swelling, Throat pain, Throat swelling, Other Respiratory: No: Cough, Dry, Shortness of breath, SOB with excertion, Wheezing, Hemoptysis, Pleuritic Pain, Sputum, Wheezing, Other Cardiovascular: No: Chest Pain, Palpitations, Orthopnea, Paroxysmal Noc. Dyspnea, Edema, Lt Headedness, Other Gastrointestinal: No: Nausea, Vomiting, Abdominal Pain, Diarrhea, Constipation, Melena, Hematochezia, Other Genitourinary: No Dysuria, No Frequency, No Incontinence, No Hematuria, No Retention, No Other Musculoskeletal: leg pain (right leg swelling and redness); No: other, neck pain, shoulder pain, arm pain, back pain, hand pain, foot pain Skin: Other (Open wound to right great toe); No: Rash, Lesions, Jaundice, Bruising Neurological: No: Weakness, Numbness, Incoordination, Change in speech, Confusion, Seizures, Other Allergies: Coded Allergies: Erythromycin (Verified Allergy, Mild, RASH, 09/18/22) Morphine (Unverified Adverse Reaction, Mild, vertigo/N/V, 09/18/22) Medications Current Medications Medications Dose Ordered Sig/Christen Route Start Time Stop Time Status Last Admin Dose Admin Atenolol 25 mg DAILY PO 08/10/24 10:00 UNV Levothyroxine Sodium 50 mcg DAILY PO 08/10/24 10:00 UNV Patient Own Medication 10 mg DAILY PO 08/10/24 10:00 UNV Acetaminophen/ Hydrocodone Bitart 1 tab Q4HP PRN PO 08/09/24 12:15 UNV Ondansetron HCl 4 mg Q4HP PRN IV 08/09/24 12:15 UNV Docusate Sodium 100 mg BIDPRN PRN PO 08/09/24 12:15 UNV Acetaminophen 650 mg Q6HP PRN PO 08/09/24 12:15 UNV Exam Vital Signs Vital Signs Date Time Temp Pulse Resp B/P (MAP) Pulse Ox O2 Delivery O2 Flow Rate FiO2 08/09/24 10:55 67 17 95 Room Air 08/09/24 10:55 97.8 145/75 (98) 97.8 08/09/24 10:01 0 21 General Appearance: Alert, Oriented X3, Cooperative, moderate distress HEENT: Atraumatic, PERRLA Respiratory: Clear to auscultation, Normal air movement Cardiovascular: Regular rate, Normal S1, Normal S2, No murmurs Abdominal: Normal bowel sounds, Soft, No tenderness, No hepatospenomegaly Extremities: No clubbing, No cyanosis, Other (right LE edema, redness) Skin: No rashes, No breakdown, No significant lesion (right great toe wound) Neuro: Normal gait, Normal speech, Strength at 5/5 X4 ext, Normal tone Psych/Mental Status: Mental status NL, Mood NL Labs/Xrays Labs Test 08/09/24 10:04 08/09/24 09:42 Range/Units White Blood Count 11.2 H 4.4-10.8 10^3/uL Red Blood Count 5.08 4.5-5.90 10^6/uL Hemoglobin 15.7 13.5-17.5 g/dL Hematocrit 45.5 41.0-53.0 % Mean Corpuscular Volume 89.6 80.0-100.0 fL Mean Corpuscular Hemoglobin 31.0 28.0-32.0 pg Mean Corpuscular Hemoglobin Concent 34.6 32.0-36.0 g/dL Red Cell Distribution Width 13.4 11.8-14.3 % Platelet Count 158 140-450 10^3/uL Mean Platelet Volume 7.8 6.9-10.8 fL Neutrophils (%) (Auto) 65.4 37.0-80.0 % Lymphocytes (%) (Auto) 21.4 10.0-50.0 % Monocytes (%) (Auto) 8.6 0.0-12.0 % Eosinophils (%) (Auto) 4.2 0.0-7.0 % Basophils (%) (Auto) 0.4 0.0-2.0 % Neutrophils # (Auto) 7.3 1.6-8.6 10 ^3/uL Lymphocytes # (Auto) 2.4 0.4-5.4 10 ^3/uL Monocytes # (Auto) 1.0 0-1.3 10 ^3/uL Eosinophils # (Auto) 0.5 0-0.8 10 ^3/uL Basophils # (Auto) 0 0-0.2 10 ^3/uL Nucleated Red Blood Cells 0.0 % Prothrombin Time 11.8 9.3-11.8 sec Prothrombin Time INR 1.13 0.9-1.15 Activated Partial Thromboplast Time 38.4 H 24.5-34.5 SEC D-Dimer, Quantitative 0.26 0.0-0.49 mg/L FEU Sodium Level 136 136-145 mmol/L Potassium Level 3.2 L 3.5-5.1 mmol/L Chloride Level 100 98-107 mmol/L Carbon Dioxide Level 31 20-31 mmol/L Anion Gap 5 5-15 Blood Urea Nitrogen 16 9-23 mg/dL Creatinine 1.07 0.700-1.30 mg/dL Glomerular Filtration Rate Calc 71 >90 mL/min BUN/Creatinine Ratio 15.0 10.0-20.0 Serum Glucose 137 H 74-106 mg/dL Lactic Acid Level 1.1 0.4-2.0 mmol/L Calcium Level 10.6 H 8.7-10.4 mg/dL POC Glucose 146 H 70-106 mg/dl Right lower extremity venous duplex Findings: The common femoral vein demonstrates appropriate compressibility and waveform variability. There is compressibility/patency of the great saphenous vein at the proximal thigh. The femoral vein demonstrates appropriate compressibility and waveform variability. The deep femoral vein demonstrates appropriate compressibility and waveform variability. The popliteal vein demonstrates appropriate compressibility and waveform variability. There is normal compressibility at the tibioperoneal trunk. Impression: No right femoropopliteal venous thrombosis. Assessment/Plan Assessment/Plan Assessment: Cellulitis of right lower extremity, Right great toe wound, Hypokalemia, Diabetes, CHF, CAD, Hypertension, Hyperlipidemia, Plan: Admit to Med-Surg, IV antibiotics, IV hydration, Wound care consult, Podiatry consult, Wound culture, Manage/Monitor electrolytes closely, Home medications reconciled, Plan discussed with: Patient My Orders Orders - ANDRES DYSON Procedure Category Date Status Time Atenolol Tablet PHA 08/10/24 Logged (Tenormin Tablet) 10:00 Levothyroxine Tablet PHA 08/10/24 Logged (Synthroid Tablet) 10:00 (Nf) Atorvastatin PHA 08/10/24 Logged Calcium (Lipitor) 10:00 Clindamycin Ivpb PHA 08/09/24 Transmitted Cleocin 14:00 Admit ADMIT 08/09/24 Transmitted 12:08 Code Status CODE 08/09/24 Transmitted 12:08 Sodium Chloride Lock PHA 08/09/24 Transmitted (Saline Lock Ns) 14:00 Hydrocodone-Acet PHA 08/09/24 Transmitted 5/325mg Tab ([place] 12:15 Ondansetron Hcl PHA 08/09/24 Transmitted (Zofran) 12:15 Docusate Sodium PHA 08/09/24 Transmitted Capsule (Colace 12:15 Complete Blood Count LAB 08/10/24 Verified 04:00 Comprehensive LAB 08/10/24 Verified Metabolic Panel 04:00 Cardiac DIET 08/09/24 Transmitted Diet-2gna,Lofat,Lochol Lunch Condition: Serious FRANCISCO 08/09/24 Transmitted 12:08 Acetaminophen Tablet PHA 08/09/24 Transmitted (Tylenol Tablet) 12:15 * Wound Consult CONS 08/09/24 Transmitted Wound Culture W/ Gs ANGELLA 08/09/24 Transmitted 12:08 Date of Service: Aug 09, 2024 Billing Provider: ANDRES DYSON Common Visit Codes: [id number] INP/OBS CARE (MOD) ANDRES DYSON Aug 09, 2024 13:57
[2024-08-09] MEDS: CLINDAMYCIN 600MG IV 50 ML IV SCH (13:58)
[2024-08-09] MEDS: SODIUM CHLOR 0.9% PF (SALINE LOCK) 10ML VIAL/SYR IV SCH (13:59)
[2024-08-09] MEDS ORDERED: SODIUM CHLOR 0.9% PF (SALINE LOCK) 10ML VIAL/SYR IV SCH (14:00)
[2024-08-09] MEDS: POTASSIUM EFFERVESENT TAB 25 MEQ PO ONE (14:00)
[2024-08-09] MEDS ORDERED: CLINDAMYCIN 600MG IV 50 ML IV SCH (14:00)
[2024-08-09 14:05] VITALS: BP 123/64; PULSE 68; RESP 18; TEMP 98.5; O2SAT 94
[2024-08-09] MEDS: POTASSIUM CHL 20 Meq TABLET PO ONE (14:45)
[2024-08-09 15:19] LABS: Urine Bacteria None Seen /hpf (None Seen)
[2024-08-09 15:34] LABS: Urine Blood Negative /uL (Negative); Urine Clarity Clear (Clear); Urine Color Colorless (Yellow); Urine Protein, UAD Negative (Negative); Urine Specific Gravity 1.006 (1.001-1.035); Urine Squamous Epithelial Cell FEW /hpf (<5); Urine Urobilinogen Normal (Negative)
[2024-08-09 15:42] LABS: Urine WBC 1 /HPF (0-3)
[2024-08-09 17:00] VITALS: BP 123/62; PULSE 66; RESP 16; TEMP 98.7; O2SAT 98
[2024-08-09] MEDS: ATORVASTATIN 20 MG TAB PO SCH (21:59)
[2024-08-09] MEDS ORDERED: DEXTROSE (50%) 50ML SYRG IV PRN (22:00)
[2024-08-09] MEDS: ACCU-CHEK COMFORT CURVE STRIP VI SCH (22:09)
[2024-08-09] MEDS: InsuLIN REG 1unit/0.01ml Soln (100units/ml) SC SCH (22:18)
[2024-08-10] VITALS (7 sets, daily range): BP systolic 115–147; BP diastolic 60–84; PULSE 61–65; RESP 16–19; TEMP 97.5–98.2; O2SAT 94–98
[2024-08-10 07:10] LABS: Basophils # (auto) 0 10 ^3/uL (0-0.2); Basophils % (auto) 0.4 % (0.0-2.0); Eosinophils # (auto) 0.5 10 ^3/uL (0-0.8); Eosinophils % (auto) 5.2 % (0.0-7.0); Hematocrit 40.7 % (41.0-53.0); Hemoglobin 14.3 g/dL (13.5-17.5); Lymphocytes # (auto) 2.8 10 ^3/uL (0.4-5.4); Lymphocytes % (auto) 31.2 % (10.0-50.0); Mean Corpuscular Hemoglobin 31.1 pg (28.0-32.0); Mean Corpuscular Hgb Conc. 35.2 g/dL (32.0-36.0); Mean Corpuscular Volume 88.5 fL (80.0-100.0); Monocytes % (auto) 11.3 % (0.0-12.0); Neutrophils # (auto) 4.7 10 ^3/uL (1.6-8.6); Neutrophils % (auto) 51.9 % (37.0-80.0); Nucleated Red Blood Cells % 0.1 %; Platelet Count (auto) 151 10^3/uL (140-450); Red Cell Distribution Width 13.4 % (11.8-14.3); White Blood Cell 9.1 10^3/uL (4.4-10.8)
[2024-08-10 07:29] LABS: Alanine Aminotransferase 21 U/L (7-40); Alkaline Phosphatase 74 U/L (46-116); Anion Gap 9 (5-15); BUN/Creatinine Ratio 19.1 (10.0-20.0); Blood Urea Nitrogen 17 mg/dL (9-23); Calcium 9.7 mg/dL (8.7-10.4); Carbon Dioxide 30 mmol/L (20-31); Potassium 3.5 mmol/L (3.5-5.1)
[2024-08-10 07:30] LABS: Total Protein 7.1 g/dL (5.7-8.2)
[2024-08-10 07:31] LABS: Albumin 4.2 g/dL (3.2-4.8); Aspartate Aminotransferase 21 U/L (13-40)
[2024-08-10 07:35] LABS: Bilirubin, Total 1.6 mg/dL (0.2-1.0); Chloride 97 mmol/L (98-107); Glucose 108 mg/dL (74-106); Sodium 136 mmol/L (136-145)
[2024-08-10] MEDS: LEVOTHYROXINE SODIUM 50 MCG TAB PO SCH (09:41)
[2024-08-10] MEDS: BUMETANIDE 1 MG TAB PO SCH (09:41)
[2024-08-10] MEDS: ATENOLOL 25 MG TAB PO SCH (09:42)
[2024-08-10] MEDS ORDERED: LEVOTHYROXINE SODIUM 50 MCG TAB PO SCH (10:00)
[2024-08-10] MEDS ORDERED: PATIENTS OWN MEDICATION (Atorvastatin Calcium (Lipitor) 10 MG) PO SCH (10:00)
[2024-08-10] MEDS ORDERED: ATENOLOL 25 MG TAB PO SCH (10:00)
--- NOTE | 2024-08-10 13:38 | DVHPN2 ---
Subjective Seen and examined at bedside. Cont IV Abx Changes from previous H/P or p: No Changes Eyes: No Pain, No Vision change, No Conjunctivae inflammation, No Eyelid inflammation, No Other, No Redness ENT: No Ear pain, No Ear discharge, No Nose pain, No Nose discharge, No Nose congestion, No Mouth pain, No Mouth swelling, No Throat pain, No Throat swelling, No Other Cardiovascular: No Chest Pain, No Palpitations, No Orthopnea, No Paroxysmal Noc. Dyspnea, No Edema, No Lt Headedness, No Other Respiratory: No Cough, No Dry, No Shortness of breath, No SOB with excertion, No Wheezing, No Hemoptysis, No Pleuritic Pain, No Sputum, No Other Gastrointestinal: No Nausea, No Vomiting, No Abdominal Pain, No Diarrhea, No Constipation, No Melena, No Hematochezia, No Other Genitourinary: No Dysuria, No Frequency, No Incontinence, No Hematuria, No Retention, No Other Musculoskeletal: No other, No neck pain, No shoulder pain, No arm pain, No back pain, No hand pain; leg pain (right leg swelling and redness); No foot pain Skin: No Rash, No Lesions, No Jaundice, No Bruising Objective Vitals Vital Signs Date Time Temp Pulse Resp B/P (MAP) Pulse Ox O2 Delivery O2 Flow Rate FiO2 08/10/24 12:30 98.0 61 18 138/84 (102) 94 98.0 08/10/24 08:00 Room Air* 0 21 Intake/Output Intake and Output 08/10/24 07:00 Intake Total 1620 ml Output Total 700 ml Balance 920 ml Intake Oral 1120 ml IV Total 500 ml Output Urine Total 700 ml # Voids 3 General Appearance: Alert, Oriented X3, Cooperative, No acute distress HEENT: Atraumatic Lungs: Clear to auscultation Cardiovascular: Regular rate, Normal S1, Normal S2 Abdomen: Normal bowel sounds, Soft Extremities: Other (right leg cellulitis) Psych/Mental Status: Mental status NL Medications Current Medications Medications Dose Ordered Sig/Christen Route Start Time Stop Time Status Last Admin Dose Admin Bumetanide 2 mg DAILY PO 08/10/24 10:00 08/10/24 09:41 2 MG Patient Own Medication 12 unit HS SC 08/09/24 22:00 Sodium Chloride 10 ml Q8HR IV 08/09/24 14:00 08/10/24 13:21 10 ML Ondansetron HCl 4 mg Q4HP PRN IV 08/09/24 12:30 Clindamycin Phosphate 50 ml @ 50 mls/hr Q8HR IV 08/09/24 14:00 08/10/24 13:20 50 MLS/HR Atenolol 25 mg DAILY PO 08/10/24 10:00 08/10/24 09:42 25 MG Levothyroxine Sodium 50 mcg DAILY PO 08/10/24 10:00 08/10/24 09:41 50 MCG Acetaminophen/ Hydrocodone Bitart 1 tab Q4HP PRN PO 08/09/24 12:30 Docusate Sodium 100 mg BIDPRN PRN PO 08/09/24 12:30 Acetaminophen 650 mg Q6HP PRN PO 08/09/24 12:30 Atorvastatin Calcium 10 mg HS PO 08/09/24 22:00 Diagnostic Test (Pha) 1 strip ACHS 08/09/24 22:00 08/10/24 11:31 1 STRIP Insulin Human Regular ACHS SC 08/09/24 22:00 08/10/24 11:54 4 UNITS Dextrose 50 ml UD PRN IV 08/09/24 22:00 Laboratory Results Laboratory Tests 08/10/24 06:27 Chemistry Test 08/10/24 06:27 Albumin 4.2 g/dL (3.2-4.8) Calcium Level 9.7 mg/dL (8.7-10.4) Total Protein 7.1 g/dL (5.7-8.2) LFT Test 08/10/24 06:27 Alanine Aminotransferase (ALT) 21 U/L (7-40) Alkaline Phosphatase 74 U/L (46-116) Aspartate Amino Transferase (AST) 21 U/L (13-40) Total Bilirubin 1.6 mg/dL (0.2-1.0) H Urinalysis Test 08/09/24 15:18 Urine Color Colorless (Yellow) Urine Clarity Clear (Clear) Urine pH 6.0 (5.0-9.0) Urine Specific [place] 1.006 (1.001-1.035) Urine Protein Negative (Negative) Urine Ketones Negative (Negative) Urine Blood Negative /uL (Negative) Urine Nitrite Negative (Negative) Urine Bilirubin Negative (Negative) Urine Urobilinogen Normal mg/dL (Negative) Urine Leukocyte Esterase Negative /uL (Negative) Urine RBC <1 /hpf (0 - 3) Urine Microscopic WBC 1 /HPF (0-3) Urine Squamous Epithelial Cells Few /hpf (<5) Urine Bacteria None seen /hpf (None Seen) Urine Glucose Normal mg/dL (Normal) Microbiology Microbiology Date/Time Source Procedure Growth Status 08/09/24 10:04 Blood Blood Culture - Preliminary NO GROWTH AFTER 24 HOURS OF INCUBATION. Resulted Assessment/Plan Assessment/Plan Cellulitis of right lower extremity- IV Abx Right great toe wound- Seen by wound care. Outpatient podiatry Diabetes- A1c Chronic Systolic/Diastolic CHF- Cont Meds CAD- Stable Hypertension, Hyperlipidemia, Goals of care discussion >18 mins FULL CODE Plan discussed with: Patient My Orders Orders - MADDI OWENS MD Procedure Category Date Status Time Hemoglobin A1c LAB 08/10/24 Transmitted 13:35 Date of Service: Aug 10, 2024 Billing Provider: MADDI OWENS MD Common Visit Codes: [id number] INP/OBS CARE(HIGH) Secondary Visit Codes: [id number] CARE PLAN 30 MINUTES MADDI OWENS MD Aug 10, 2024 13:38
[2024-08-11 05:00] VITALS: BP 115/50; PULSE 61; RESP 18; O2SAT 95
[2024-08-11 08:49] VITALS: BP 121/65; PULSE 63; RESP 20; TEMP 98.1; O2SAT 95
[2024-08-11] MEDS ORDERED: AUG875T PO (10:51)
--- NOTE | 2024-08-11 10:52 | DVHDS2 ---
Discharge Summary Date of Admission Aug 09, 2024 at 12:08 Date of Discharge: Aug 11, 2024 Admitting Diagnosis Cellulitis Labs/Diagnostic Data: Laboratory Results Test 08/11/24 06:07 08/10/24 06:27 08/09/24 15:18 08/09/24 10:04 POC Glucose 111 mg/dl (70-106) White Blood Count 9.1 10^3/uL (4.4-10.8) Red Blood Count 4.60 10^6/uL (4.5-5.90) Hemoglobin 14.3 g/dL (13.5-17.5) Hematocrit 40.7 % (41.0-53.0) Mean Corpuscular Volume 88.5 fL (80.0-100.0) Mean Corpuscular Hemoglobin 31.1 pg (28.0-32.0) Mean Corpuscular Hemoglobin Concent 35.2 g/dL (32.0-36.0) Red Cell Distribution Width 13.4 % (11.8-14.3) Platelet Count 151 10^3/uL (140-450) Mean Platelet Volume 7.9 fL (6.9-10.8) Neutrophils (%) (Auto) 51.9 % (37.0-80.0) Lymphocytes (%) (Auto) 31.2 % (10.0-50.0) Monocytes (%) (Auto) 11.3 % (0.0-12.0) Eosinophils (%) (Auto) 5.2 % (0.0-7.0) Basophils (%) (Auto) 0.4 % (0.0-2.0) Neutrophils # (Auto) 4.7 10 ^3/uL (1.6-8.6) Lymphocytes # (Auto) 2.8 10 ^3/uL (0.4-5.4) Monocytes # (Auto) 1.0 10 ^3/uL (0-1.3) Eosinophils # (Auto) 0.5 10 ^3/uL (0-0.8) Basophils # (Auto) 0 10 ^3/uL (0-0.2) Nucleated Red Blood Cells 0.1 % Sodium Level 136 mmol/L (136-145) Potassium Level 3.5 mmol/L (3.5-5.1) Chloride Level 97 mmol/L (98-107) Carbon Dioxide Level 30 mmol/L (20-31) Anion Gap 9 (5-15) Blood Urea Nitrogen 17 mg/dL (9-23) Creatinine 0.89 mg/dL (0.700-1.30) Glomerular Filtration Rate Calc 88 mL/min (>90) BUN/Creatinine Ratio 19.1 (10.0-20.0) Serum Glucose 108 mg/dL (74-106) Hemoglobin A1c 6.6 % A1C (<5.7) Calcium Level 9.7 mg/dL (8.7-10.4) Total Bilirubin 1.6 mg/dL (0.2-1.0) Aspartate Amino Transferase (AST) 21 U/L (13-40) Alanine Aminotransferase (ALT) 21 U/L (7-40) Alkaline Phosphatase 74 U/L (46-116) Total Protein 7.1 g/dL (5.7-8.2) Albumin 4.2 g/dL (3.2-4.8) Urine Color Colorless (Yellow) Urine Clarity Clear (Clear) Urine pH 6.0 (5.0-9.0) Urine Specific [place] 1.006 (1.001-1.035) Urine Protein Negative (Negative) Urine Ketones Negative (Negative) Urine Blood Negative /uL (Negative) Urine Nitrite Negative (Negative) Urine Bilirubin Negative (Negative) Urine Urobilinogen Normal mg/dL (Negative) Urine Leukocyte Esterase Negative /uL (Negative) Urine RBC <1 /hpf (0 - 3) Urine Microscopic WBC 1 /HPF (0-3) Urine Squamous Epithelial Cells Few /hpf (<5) Urine Bacteria None seen /hpf (None Seen) Urine Glucose Normal mg/dL (Normal) Prothrombin Time 11.8 sec (9.3-11.8) Prothrombin Time INR 1.13 (0.9-1.15) Activated Partial Thromboplast Time 38.4 SEC (24.5-34.5) D-Dimer, Quantitative 0.26 mg/L FEU (0.0-0.49) Lactic Acid Level 1.1 mmol/L (0.4-2.0) Other Laboratory Tests 08/10/24 06:27 Brief Hx & Hospital Course: Veto Ruvalcaba is a 79-year-old male with past medical history of diabetes, CHF, COPD, Sleep apnea, uses a home CPAP machine, coronary artery disease, hypertension, and hyperlipidemia, who came in for right leg swelling, redness, and pain. Patient states he noticed the redness and swelling last night. States there is minimal pain. He went to his dough mixer this morning and was told to go to the hospital to have it evaluated. Patient has been seen a dough mixer regarding an open wound to his right great toe. He just finished a round of Cipro to treat the infection. The wound is open and continues to have drainage. Seen in podiatry consult, will be discharged home with Augmentin PO and to see Podiatry clinic in 1 week. Condition at Discharge: Stable Final Diagnosis/Problems List Cellulitis of right lower extremity- Abx Right great toe wound- Seen by wound care. Outpatient podiatry Diabetes- A1c Chronic Systolic/Diastolic CHF- Cont Meds CAD- Stable Hypertension, Hyperlipidemia, Goals of care discussion >18 mins FULL CODE Discharge Disposition: Home Discharge Statement: "Patient was advised to return to the ER or call 911 if any headaches, dizziness, shortness of breath, chest pain, abdominal pain, bleeding, fevers, or worsening of medical condition. Patient was counseled about treatment plan, medications, possible side effects, patientverbalized understanding. All questions were answered to the best of my ability. This discharge took greater then 30 minutes in planning, reviewing documentation, counseling the patient, and discussing with other team members." ASSESSMENT ASSESSMENT Assessment Date of Service: Aug 11, 2024 Billing Provider: MADDI OWENS MD Common Visit Codes: [id number] DISCH DAY >30min MADDI OWENS MD Aug 11, 2024 10:52
--- NOTE | 2024-08-11 11:42 | DVHINCON2 ---
Date Seen: Aug 11, 2024 Reason for Consultation Right foot wound History of Present Illness Veto Ruvalcaba is a 79-year-old male with past medical history of diabetes, CHF, COPD, Sleep apnea, uses a home CPAP machine, coronary artery disease, hypertension, and hyperlipidemia, who came in for right leg swelling, redness, and pain. Patient states he noticed the redness and swelling last night. States there is minimal pain. He went to his senior accounts payable specialist this morning and was told to go to the hospital to have it evaluated. Patient has been seen a senior accounts payable specialist regarding an open wound to his right great toe. He just finished a round of Cipro to treat the infection. The wound is open and continues to have drainage. Past Medical History See H&P Past Surgical History See H&P Family History: Cardiovascular disease G8 MOTHER Diabetes mellitus G8 MOTHER Allergies: Coded Allergies: Erythromycin (Verified Allergy, Mild, RASH, 09/18/22) Morphine (Unverified Adverse Reaction, Mild, vertigo/N/V, 09/18/22) Home Meds Active Scripts Amoxicillin & Pot Clavulanate (AUGMENTIN TABLET) 875 Mg Tb, 875 MG PO BID for 7 Days, #14 TAB Prov:MADDI OWENS MD 08/11/24 Reported Medications Bumetanide (Bumetanide) 2 Mg Tab, 1 TAB PO DAILY 08/09/24 Aclidinium Roby (Tudorza Pressair) 400 Mcg/Act Aer, 1 PUFF IN BID, AER 02/19/21 Insulin Glargine (Toujeo Solostar) 300 Unit/Ml Inj, 12 UNIT SC HS for DIABETES, INJ 02/19/21 Azilsartan Medoxomil-Chlorthal (Edarbyclor 40-12.5 mg) 1 Tab Tab, 1 TAB PO DAILY, TAB 02/19/21 Alprazolam (Xanax) 0.5 Mg Tb, 1 TAB PO DAILYP PRN for ANXIETY, #30 TAB 08/04/17 Budesonide (Inhalation) (Budesonide) 1 Mg/2 Ml Allyson, 1 MG IN BID 08/04/17 Dabigatran Etexilate Mesylate (Pradaxa) 150 Mg Cap, 150 MG PO BID for STOPPED 09/14/22, CAP 06/05/15 Testosterone (AXIRON) 30 Mg/Act Kimberly, 30 MG TD BID 06/05/15 Magnesium Oxide (MAGNESIUM OXIDE) 400 Mg Tab, 400 MG PO BID 08/31/12 Potassium Chloride (Klor-Con) 20 Meq Pow, 20 MEQ PO TID 08/31/12 Atorvastatin Calcium (Lipitor) 10 Mg Tab, 10 MG PO DAILY 08/31/12 Atenolol (Atenolol) 25 Mg Tab, 25 MG PO DAILY 08/31/12 Discontinued Reported Medications Levothyroxine Sodium (SYNTHROID TABLET) 50 Mcg Tb, 1 TAB PO DAILY, #30 TAB 5 Refills 02/19/21 Vital Signs Vital Signs Date Time Temp Pulse Resp B/P (MAP) Pulse Ox O2 Delivery O2 Flow Rate FiO2 08/11/24 10:17 63 121/65 08/11/24 08:49 98.1 20 95 98.1 08/10/24 20:00 Room Air* 0 21 Physical Exam DERMATOLOGIC EXAM: - Skin is dry and cool to the touch dry bilaterally. - Nails 1-5 of the bilateral foot are thickened, discolored, dystrophic, and tender to palpate with subungual debris - Hair loss noted to bilateral feet Wound #1: Location: Right hallux Measurements: Length 1 cm x width 1 cm x depth 0.5 cm. Wound margins: Hyperkeratotic. Wound base: Full thickness. General Appearance: Healthy and bleeding. Probes to Bone: No Purulent drainage: No Serous drainage: No Erythema: Absent Wound #2: Location: Right lateral fifth metatarsal Measurements: Length 0.5 cm x width 0.5 cm x depth 0.5 cm. Wound margins: Hyperkeratotic. Wound base: Full thickness. General Appearance: Healthy and bleeding. Probes to Bone: No Purulent drainage: No Serous drainage: No Erythema: Absent VASCULAR EXAM: - DP and PT pulses are palpable bilaterally. - [employer] SERV[employer]ENT is brisk to all digits. - Feet are cool to touch compared to lower legs bilaterally. NEUROLOGIC EXAM: - Normal light touch sensation to the superficial peroneal, deep peroneal, sural, saphenous, and tibial nerve branches. - Protective sensation is diminished as tested with a 5.07 10g [place] bilaterally. MUSCULOSKELETAL EXAM: - No gross deformities - Muscle strength is 5/5 and active motion is pain-free and symmetrical bilaterally - No pain or crepitation with passive range of motion bilaterally to all major pedal joints Labs/Diagnostic Data Labs Test 08/11/24 06:07 08/10/24 06:27 08/09/24 15:18 08/09/24 10:04 Range/Units POC Glucose 111 H 70-106 mg/dl White Blood Count 9.1 4.4-10.8 10^3/uL Red Blood Count 4.60 4.5-5.90 10^6/uL Hemoglobin 14.3 13.5-17.5 g/dL Hematocrit 40.7 #L 41.0-53.0 % Mean Corpuscular Volume 88.5 80.0-100.0 fL Mean Corpuscular Hemoglobin 31.1 28.0-32.0 pg Mean Corpuscular Hemoglobin Concent 35.2 32.0-36.0 g/dL Red Cell Distribution Width 13.4 11.8-14.3 % Platelet Count 151 140-450 10^3/uL Mean Platelet Volume 7.9 6.9-10.8 fL Neutrophils (%) (Auto) 51.9 37.0-80.0 % Lymphocytes (%) (Auto) 31.2 10.0-50.0 % Monocytes (%) (Auto) 11.3 0.0-12.0 % Eosinophils (%) (Auto) 5.2 0.0-7.0 % Basophils (%) (Auto) 0.4 0.0-2.0 % Neutrophils # (Auto) 4.7 1.6-8.6 10 ^3/uL Lymphocytes # (Auto) 2.8 0.4-5.4 10 ^3/uL Monocytes # (Auto) 1.0 0-1.3 10 ^3/uL Eosinophils # (Auto) 0.5 0-0.8 10 ^3/uL Basophils # (Auto) 0 0-0.2 10 ^3/uL Nucleated Red Blood Cells 0.1 % Sodium Level 136 136-145 mmol/L Potassium Level 3.5 3.5-5.1 mmol/L Chloride Level 97 L 98-107 mmol/L Carbon Dioxide Level 30 20-31 mmol/L Anion Gap 9 5-15 Blood Urea Nitrogen 17 9-23 mg/dL Creatinine 0.89 0.700-1.30 mg/dL Glomerular Filtration Rate Calc 88 >90 mL/min BUN/Creatinine Ratio 19.1 10.0-20.0 Serum Glucose 108 H 74-106 mg/dL Hemoglobin A1c 6.6 H <5.7 % A1C Calcium Level 9.7 8.7-10.4 mg/dL Total Bilirubin 1.6 H 0.2-1.0 mg/dL Aspartate Amino Transferase (AST) 21 13-40 U/L Alanine Aminotransferase (ALT) 21 7-40 U/L Alkaline Phosphatase 74 46-116 U/L Total Protein 7.1 5.7-8.2 g/dL Albumin 4.2 3.2-4.8 g/dL Urine Color Colorless Yellow Urine Clarity Clear Clear Urine pH 6.0 5.0-9.0 Urine Specific [place] 1.006 1.001-1.035 Urine Protein Negative Negative Urine Ketones Negative Negative Urine Blood Negative Negative /uL Urine Nitrite Negative Negative Urine Bilirubin Negative Negative Urine Urobilinogen Normal Negative mg/dL Urine Leukocyte Esterase Negative Negative /uL Urine RBC <1 0 - 3 /hpf Urine Microscopic WBC 1 0-3 /HPF Urine Squamous Epithelial Cells Few <5 /hpf Urine Bacteria None seen None Seen /hpf Urine Glucose Normal Normal mg/dL Prothrombin Time 11.8 9.3-11.8 sec Prothrombin Time INR 1.13 0.9-1.15 Activated Partial Thromboplast Time 38.4 H 24.5-34.5 SEC D-Dimer, Quantitative 0.26 0.0-0.49 mg/L FEU Lactic Acid Level 1.1 0.4-2.0 mmol/L Microbiology Date/Time Source Procedure Growth Status 08/10/24 00:30 Toe Gram Stain - Final Resulted 08/10/24 00:30 Toe Wound Culture - Preliminary Resulted 08/09/24 10:04 Blood Blood Culture - Preliminary NO GROWTH AFTER 48 HOURS OF INCUBATION. Resulted Problems(with codes): (1) Constipation (2) Postoperative urinary retention (3) Cellulitis of right lower extremity Plan/Recommendation ASSESSMENT: Patient is a 79-year-old male seen on the floor for a worsening right foot ulcer PLAN: - The patients chart was reviewed, clinical findings were discussed with the patient, the etiologies of the conditions were discussed in detail, and a treatment plan was agreed to at this time, with both oral and written instructions provided. - discussed with the patient the wounds appear superficial at this point - we will have the patient dress it with Iodosorb and horseshoe pads - we will perform a osteotomy of the 5th metatarsals an outpatient - with consent of home on p.o. antibiotics - can weightbear as tolerated with the horseshoe pads - follow up with me beginning of next week All questions were answered and concerns addressed to the patient's satisfaction. The patient was given the phone number to the clinic and was told how to make contact with the clinic should any concerns or questions arise. Patient understands that if any questions or concerns arise prior to the next appointment, we should be contacted immediately. FOLLOW-UP: Follow up next week Plan discussed with: Patient Date of Service: Aug 11, 2024 Billing Provider: TANJA GUDINO DPM Common Visit Codes: CONSULT ONLY Consultation Codes: [id number] CONSULT <80MIN TANJA GUDINO DPM Aug 11, 2024 11:42
--- NOTE | 2024-08-11 12:29 | DVHPN2 ---
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 HTN HYPERLIPIDEMIA HFrEF SLEEP APNEA COPD DIABETES NOW WITH RIGHT LOWER EXTREMITY SWELLING WITH CELLULITIS vital signs Vital Sign Date Time Temp Pulse Resp B/P (MAP) Pulse Ox O2 Delivery O2 Flow Rate FiO2 08/11/24 10:17 63 121/65 08/11/24 08:49 98.1 20 95 98.1 08/11/24 07:30 Room Air* 0 21 Total Intake and Output 08/10/24 08/10/24 08/11/24 15:00 23:00 07:00 Intake Total 100 ml 350 ml 900 ml Balance 100 ml 350 ml 900 ml medications Current Medications Medications Dose Ordered Sig/Christen Route Start Time Stop Time Status Last Admin Dose Admin Bumetanide 2 mg DAILY PO 08/10/24 10:00 08/11/24 10:17 2 MG Patient Own Medication 12 unit HS SC 08/09/24 22:00 Sodium Chloride 10 ml Q8HR IV 08/09/24 14:00 08/11/24 06:20 10 ML Ondansetron HCl 4 mg Q4HP PRN IV 08/09/24 12:30 Clindamycin Phosphate 50 ml @ 50 mls/hr Q8HR IV 08/09/24 14:00 08/11/24 06:17 50 MLS/HR Atenolol 25 mg DAILY PO 08/10/24 10:00 08/11/24 10:17 25 MG Levothyroxine Sodium 50 mcg DAILY PO 08/10/24 10:00 08/11/24 10:17 50 MCG Acetaminophen/ Hydrocodone Bitart 1 tab Q4HP PRN PO 08/09/24 12:30 Docusate Sodium 100 mg BIDPRN PRN PO 08/09/24 12:30 Acetaminophen 650 mg Q6HP PRN PO 08/09/24 12:30 Atorvastatin Calcium 10 mg HS PO 08/09/24 22:00 Diagnostic Test (Pha) 1 strip ACHS 08/09/24 22:00 08/11/24 06:20 1 STRIP Insulin Human Regular ACHS SC 08/09/24 22:00 08/10/24 22:00 3 UNITS Dextrose 50 ml UD PRN IV 08/09/24 22:00 laboratory and microbiology Laboratory Tests 08/10/24 06:27 Test 08/10/24 06:27 Range/Units Serum Glucose 108 H 74-106 mg/dL Problem List ORGANIC HD ISCHEMIC CM HTN HYPERLIPIDEMIA HFrEF SLEEP APNEA COPD DIABETES NOW WITH RIGHT LOWER EXTREMITY SWELLING WITH CELLULITIS Assessment/Plan ABX DC HOME Plan discussed with: Patient SOLO MASON MD Aug 11, 2024 12:29
--- NOTE | 2024-08-11 12:29 | DVHPN2 ---
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 HTN HYPERLIPIDEMIA HFrEF SLEEP APNEA COPD DIABETES NOW WITH RIGHT LOWER EXTREMITY SWELLING WITH CELLULITIS vital signs Vital Sign Date Time Temp Pulse Resp B/P (MAP) Pulse Ox O2 Delivery O2 Flow Rate FiO2 08/11/24 10:17 63 121/65 08/11/24 08:49 98.1 20 95 98.1 08/11/24 07:30 Room Air* 0 21 Total Intake and Output 08/10/24 08/10/24 08/11/24 15:00 23:00 07:00 Intake Total 100 ml 350 ml 900 ml Balance 100 ml 350 ml 900 ml medications Current Medications Medications Dose Ordered Sig/Christen Route Start Time Stop Time Status Last Admin Dose Admin Bumetanide 2 mg DAILY PO 08/10/24 10:00 08/11/24 10:17 2 MG Patient Own Medication 12 unit HS SC 08/09/24 22:00 Sodium Chloride 10 ml Q8HR IV 08/09/24 14:00 08/11/24 06:20 10 ML Ondansetron HCl 4 mg Q4HP PRN IV 08/09/24 12:30 Clindamycin Phosphate 50 ml @ 50 mls/hr Q8HR IV 08/09/24 14:00 08/11/24 06:17 50 MLS/HR Atenolol 25 mg DAILY PO 08/10/24 10:00 08/11/24 10:17 25 MG Levothyroxine Sodium 50 mcg DAILY PO 08/10/24 10:00 08/11/24 10:17 50 MCG Acetaminophen/ Hydrocodone Bitart 1 tab Q4HP PRN PO 08/09/24 12:30 Docusate Sodium 100 mg BIDPRN PRN PO 08/09/24 12:30 Acetaminophen 650 mg Q6HP PRN PO 08/09/24 12:30 Atorvastatin Calcium 10 mg HS PO 08/09/24 22:00 Diagnostic Test (Pha) 1 strip ACHS 08/09/24 22:00 08/11/24 06:20 1 STRIP Insulin Human Regular ACHS SC 08/09/24 22:00 08/10/24 22:00 3 UNITS Dextrose 50 ml UD PRN IV 08/09/24 22:00 laboratory and microbiology Laboratory Tests 08/10/24 06:27 Test 08/10/24 06:27 Range/Units Serum Glucose 108 H 74-106 mg/dL Problem List ORGANIC HD ISCHEMIC CM HTN HYPERLIPIDEMIA HFrEF SLEEP APNEA COPD DIABETES NOW WITH RIGHT LOWER EXTREMITY SWELLING WITH CELLULITIS Assessment/Plan ABX Plan discussed with: Patient Critical Care Time(min): 35 SOLO MASON MD Aug 11, 2024 12:28
[2024-08-11 12:30] VITALS: BP 121/65; PULSE 63; TEMP 36.7
[2024-08-11 12:42] VITALS: BP 143/81; PULSE 70; RESP 20; TEMP 98.1; O2SAT 95
== END 2024-08-11 13:45 | disposition home or self-care (01) | DRG 638 ==
LOC: ER 09:33 → OVERFLOW 12:08 → ER 12:13 → EAST 22:29
PROVIDERS: ADMIT Internal Medicine; ATTEND Internal Medicine
DX: E11.621 Type 2 diabetes mellitus with foot ulcer (principal); I50.42 Chronic combined systolic (congestive) and diastolic (congestive) heart failure; L03.115 Cellulitis of right lower limb; L97.518 Non-pressure chronic ulcer of other part of right foot with other specified severity; I11.0 Hypertensive heart disease with heart failure; J44.9 Chronic obstructive pulmonary disease, unspecified; G47.30 Sleep apnea, unspecified; I25.10 Atherosclerotic heart disease of native coronary artery without angina pectoris; E87.6 Hypokalemia; E78.5 Hyperlipidemia, unspecified; I25.5 Ischemic cardiomyopathy; Z96.653 Presence of artificial knee joint, bilateral; Z95.1 Presence of aortocoronary bypass graft; Z95.0 Presence of cardiac pacemaker; Z82.49 Family history of ischemic heart disease and other diseases of the circulatory system; Z83.3 Family history of diabetes mellitus; Z88.5 Allergy status to narcotic agent; Z88.1 Allergy status to other antibiotic agents
CPT/HCPCS: 36415; 80048; 80053; 81001; 82962; 83036; 83605; 85025; 85379; 85610; 85730; 87040; 87077; 87186; 87205; 93971; 96365; 96372; 96375; G0378; J1815; J3490

== ENCOUNTER → 2024-09-03 | Outpatient (CLI) | payer MEDICARE, BC ==
[~2024-09-03] MED LIST changes: +ALB5IS NEB; +ALBUAER3 IN; +ALBUTEROL SULF 2.5 MG/0.5ML(0.5%) NEB SOLN ONE; +AUG875T PO; +BUDE1AER16 IN; +BUME2TAB5 PO; -LEVO-848 PO; +SEMA2INJ3 SC; +TADA5TAB11 PO
--- NOTE | 2024-09-14 11:25 | DVHNC2 ---
Procedure - Pulmonary function test interpretation September 03, 2024 Mild obstructive ventilatory defect. No significant bronchodilator response. FEV1 improved by 90 mL. Total lung capacity is reduced, 66% of predicted (4.60 L). Patient unable to confuse the diffusion capacity due to chronic cough on exhalation. Multiple attempts were made. KD WHYTE RESIDENT Sep 14, 2024 11:25
== END | disposition home or self-care (01) ==
LOC: RT 09:01
PROVIDERS: ATTEND Internal Medicine Pulmonary Disease
DX: J44.9 Chronic obstructive pulmonary disease, unspecified (principal); R06.00 Dyspnea, unspecified
CPT/HCPCS: 94060; 94727; 94729

== ENCOUNTER → 2024-09-13 | Outpatient (CLI) | payer MEDICARE, BC ==
[~2024-09-13] MED LIST changes: -ALBUTEROL SULF 2.5 MG/0.5ML(0.5%) NEB SOLN ONE
== END | disposition home or self-care (01) ==
LOC: Rad HDHVI 08:38
PROVIDERS: ATTEND Internal Medicine Cardiovascular Disease
DX: M77.41 Metatarsalgia, right foot (principal); L89.890 Pressure ulcer of other site, unstageable
CPT/HCPCS: 93925

== ENCOUNTER 2024-09-15 07:51 | Day surgery (SDC) | payer MEDICARE, BC ==
[2024-09-13 11:29] LABS: Urine Bacteria None Seen /hpf (None Seen)
[2024-09-13 11:42] LABS: Basophils # (auto) 0.1 10 ^3/uL (0-0.2); Basophils % (auto) 0.5 % (0.0-2.0); Eosinophils # (auto) 0.5 10 ^3/uL (0-0.8); Eosinophils % (auto) 4.2 % (0.0-7.0); Hemoglobin 15.8 g/dL (13.5-17.5); Lymphocytes # (auto) 2.9 10 ^3/uL (0.4-5.4); Lymphocytes % (auto) 25.7 % (10.0-50.0); Mean Corpuscular Hemoglobin 31.4 pg (28.0-32.0); Mean Corpuscular Hgb Conc. 35.1 g/dL (32.0-36.0); Mean Corpuscular Volume 89.4 fL (80.0-100.0); Monocytes % (auto) 9.1 % (0.0-12.0); Neutrophils # (auto) 6.9 10 ^3/uL (1.6-8.6); Neutrophils % (auto) 60.5 % (37.0-80.0); Platelet Count (auto) 193 10^3/uL (140-450); Red Blood Cells 5.03 10^6/uL (4.5-5.90); Red Cell Distribution Width 13.3 % (11.8-14.3); White Blood Cell 11.4 10^3/uL (4.4-10.8)
[2024-09-13 11:47] LABS: Urine Blood Negative /uL (Negative); Urine Clarity Clear (Clear); Urine Color Colorless (Yellow); Urine Protein, UAD Negative (Negative); Urine Specific Gravity 1.005 (1.001-1.035); Urine Squamous Epithelial Cell None Seen /hpf (<5); Urine Urobilinogen Normal (Negative); Urine WBC < 1 /HPF (0-3); Urine pH 6.5 (5.0-9.0)
[2024-09-13 11:52] LABS: INR 1.31 (0.9-1.15); Partial Thromboplastin Time 52.2 SEC (24.5-34.5); Prothrombin Time 13.5 sec (9.3-11.8)
[2024-09-13 11:58] LABS: Anion Gap 7 (5-15); Potassium 3.7 mmol/L (3.5-5.1); Sodium 137 mmol/L (136-145)
[2024-09-13 11:59] LABS: BUN/Creatinine Ratio 16.3 (10.0-20.0); Blood Urea Nitrogen 16 mg/dL (9-23); Total Protein 8.2 g/dL (5.7-8.2)
[2024-09-13 12:00] LABS: Aspartate Aminotransferase 37 U/L (13-40); Carbon Dioxide 33 mmol/L (20-31); Chloride 97 mmol/L (98-107)
[2024-09-13 12:01] LABS: Alanine Aminotransferase 40 U/L (7-40); Albumin 4.9 g/dL (3.2-4.8); Alkaline Phosphatase 92 U/L (46-116); Bilirubin, Total 1.2 mg/dL (0.2-1.0); Glucose 132 mg/dL (74-106)
[~2024-09-15] VITALS: Ht 177.8 cm; Wt 93.0 kg
[~2024-09-15 07:51] MED LIST changes: -ALPR0.5T PO; -AUG875T PO
[2024-09-15] MEDS ORDERED: LIDOCAINE 1% INJ PF 5ML AMP ONE (09:34)
[2024-09-15] MEDS ORDERED: DexAMETHasone SOD PHOS 10MG/1ML VIAL INJ ONE (09:34)
[2024-09-15] MEDS ORDERED: KETAMINE 50mg/ML 1ml syringe ONE (09:34)
[2024-09-15] MEDS ORDERED: KETOROLAC TROMETH 30 MG/ML 1ML VIAL ONE (09:34)
[2024-09-15] MEDS ORDERED: PROPOFOL 10 MG/ML 20 ML IV ONE (09:34)
[2024-09-15] MEDS ORDERED: GLYCOPYRROLATE 0.2 MG/ML 1ML VIAL ONE (09:34)
[2024-09-15] MEDS ORDERED: ONDANSETRON HCL 4 MG/2 ML VIAL ONE (09:34)
--- NOTE | 2024-09-15 10:00 | DVHOP2 ---
Operative Report - 2 Report Details Date: 09/15/24 Preop Diagnosis: 1. Right foot diabetic foot ulcer 2. Right foot metatarsalgia 3. Right foot pain Postop Diagnosis: Metatarsalgia diabetic ulcer Surgeon: Tanja Gudino MD Anesthesiologist: See anesthesia Anesthesia: Mac Consent: The patient was informed of the risks and benefits of the procedure. These include but are not limited to complications of anesthesia, postoperative infection, incomplete relief of symptoms, recurrence of symptoms, damage to blood vessels, nerves and tendons, deep venous thrombosis, pulmonary embolism and possible need for repeat surgery in the future. Complications: None Estimated Blood Loss: Minimal Fluids: See anesthesia Findings: Consistent with the diagnosis Indications for Surgery: Worsening right foot ulcer and pressure Name of Procedure Performed 1. Right foot 5th metatarsal ricci osteotomy (04321) 2. Right foot plantar fascia tentomy (73896) Procedure Details Procedure Details: PRE-PROCEDURE INFORMATION: In the pre-op holding area, the extremity to be o perated on was clearly marked and the patient verified correct laterality of the marking. The patient was transferred to the OR table and placed in a supine position. A timeout was performed in which identification of the correct patient, procedure, location, and materials was done. The right foot and leg were prepped and draped in normal sterile fashion. DESCRIPTION OF PROCEDURE: Attention was directed to the right fifth metatarsal head where a stab incision was made. The incision was deepened through blunt and sharp dissection. Care was taken to avoid damage to neurovascular structures throughout dissection. Incision was carried to the level of the 5th metatarsal head or on fluoroscopy as well as preoperative x-rays, it was noted there was significant plantar flexion of the metatarsal head. Using an MIS bur, the an osteotomy was performed across the neck of the metatarsal head. The metatarsal head was then able to float. It was noted off intraoperative fluoroscopy, there was significant reduction deformity. Attention was directed to the right medial band of the plantar fascia, where using a an 18 gauge needle, a partial fasciotomy was performed to decrease pressure on the hallux. It is noted that there was increased motion of the hallux after the procedure. All surgical wounds were irrigated copiously with saline and closed in layers with the aforementioned suture material. A dry sterile dressing was placed on the surgical extremity. The patient was placed in a postop shoe POSTOPERATIVE INFORMATION: The patient tolerated the above noted procedure and anesthesia well and was transferred to the PACU with vital signs stable, and vascular status intact with capillary refill intact to all digits. Postoperative instructions reviewed in detail with the patient with written instructions provided. Patient will return to clinic in approximately 10-14 days for first postoperative visit. Patient has the number of the clinic and was instructed to call prior to that time should any problems, questions, or concerns arise. Condition Good Disposition Home TANJA GUDINO DPM Sep 15, 2024 10:00
[2024-09-15] MEDS: BUPIVACAINE 0.5% INJ 50ML VIAL IJ ONE (10:55)
[2024-09-15 11:02] VITALS: PULSE 98; RESP 20; TEMP 97.6; O2SAT 98
[2024-09-15 11:12] VITALS: PULSE 65; RESP 19; O2SAT 95
[2024-09-15] MEDS ORDERED: fentaNYL CITRATE 100 MCG/2 ML VL IV PRN (11:15)
[2024-09-15] MEDS ORDERED: hydrALAZINE HCL 20 MG/ML VL IV PRN (11:15)
[2024-09-15] MEDS ORDERED: ONDANSETRON HCL 4 MG/2 ML VIAL IV PRN (11:15)
[2024-09-15] MEDS ORDERED: NALOXONE HCL 0.4 MG/ML VIAL IV PRN (11:15)
[2024-09-15] MEDS ORDERED: ePHEDrine SULFATE 50 MG/ML AMP IV PRN (11:15)
[2024-09-15] MEDS ORDERED: FLUMAZENIL 0.1 MG/ML INJ 10ML MDV IV PRN (11:15)
[2024-09-15] MEDS ORDERED: HYDROmorphone HCL 2 MG/ML VL/or syr IV PRN (11:15)
[2024-09-15 12:17] VITALS: BP 144/88; PULSE 65; RESP 14; O2SAT 95
== END 2024-09-15 12:27 | disposition home or self-care (01) ==
LOC: SUR 07:51
PROVIDERS: ATTEND Podiatrist
DX: E11.621 Type 2 diabetes mellitus with foot ulcer (principal); L97.519 Non-pressure chronic ulcer of other part of right foot with unspecified severity; M77.41 Metatarsalgia, right foot; L03.115 Cellulitis of right lower limb; I50.43 Acute on chronic combined systolic (congestive) and diastolic (congestive) heart failure; I25.5 Ischemic cardiomyopathy; E11.42 Type 2 diabetes mellitus with diabetic polyneuropathy; G47.30 Sleep apnea, unspecified; E78.5 Hyperlipidemia, unspecified; Z79.4 Long term (current) use of insulin; Z79.899 Other long term (current) drug therapy; Z88.1 Allergy status to other antibiotic agents
CPT/HCPCS: 28008; 28308; 36415; 80053; 81001; 82962; 85025; 85610; 85730; J1100; J1171; J1885; J2405; J2704; J3490

== ENCOUNTER 2025-01-21 09:04 | Outpatient (CLI) | payer MEDICARE, BC ==
[~2025-01-21] VITALS: Ht 177.8 cm; Wt 95.3 kg
[2025-01-21] MEDS ORDERED: ADENOSINE 90 MG/30 ML INJ IV ONE (09:50)
[2025-01-21] MEDS ORDERED: ADENOSINE 80 MG in GIVE UN-DILUTED 0 ML IV ONE (13:45)
== END 2025-01-21 17:00 | disposition home or self-care (01) ==
LOC: Rad HDHVI 09:04
PROVIDERS: ATTEND Internal Medicine Cardiovascular Disease
DX: I49.3 Ventricular premature depolarization (principal); I11.0 Hypertensive heart disease with heart failure; I50.43 Acute on chronic combined systolic (congestive) and diastolic (congestive) heart failure; I25.5 Ischemic cardiomyopathy; I73.9 Peripheral vascular disease, unspecified; I25.10 Atherosclerotic heart disease of native coronary artery without angina pectoris; I25.2 Old myocardial infarction; E11.42 Type 2 diabetes mellitus with diabetic polyneuropathy; J44.1 Chronic obstructive pulmonary disease with (acute) exacerbation; E78.5 Hyperlipidemia, unspecified; Z95.1 Presence of aortocoronary bypass graft; Z95.0 Presence of cardiac pacemaker
CPT/HCPCS: 78452; 93017; A9500; J0153

== ENCOUNTER 2025-02-02 08:01 | Outpatient (CLI) | payer MEDICARE, BC | END 2025-02-02 17:00 | disposition home or self-care (01) | LOC: Rad HDHVI 08:01 | PROVIDERS: ATTEND Internal Medicine Cardiovascular Disease | DX: I34.81 Nonrheumatic mitral (valve) annulus calcification (principal); I50.43 Acute on chronic combined systolic (congestive) and diastolic (congestive) heart failure; Z95.0 Presence of cardiac pacemaker | CPT/HCPCS: 93306 ==

== ENCOUNTER 2025-02-23 13:16 | Outpatient (CLI) | payer MEDICARE, BC | END 2025-02-23 17:00 | disposition home or self-care (01) | LOC: Rad HDHVI 13:16 | PROVIDERS: ATTEND Internal Medicine Cardiovascular Disease | DX: I11.0 Hypertensive heart disease with heart failure (principal); I50.9 Heart failure, unspecified; E78.5 Hyperlipidemia, unspecified | CPT/HCPCS: 93880 ==

== ENCOUNTER 2025-04-25 18:26 | Inpatient (IN) | payer MEDICARE, BC ==
[~2025-04-25] VITALS: Ht 175.3 cm; Wt 95.5 kg
--- NOTE | 2025-04-25 18:55 | ECG ---
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
--- NOTE | 2025-04-25 19:05 | ED.PDOC ---
HPI Comments This is a 79-year-old male who comes in with chief complaint of chest pain. The patient states that the symptoms started at approximately 4:00 p.m. today. The symptoms lasted for approximately 90 minutes. Patient then had a bowel movement and the pain seemed to decrease. The patient also had some diarrhea on Friday as well as some chest pain yesterday. The patient denies any radiation of the pain. There has been no shortness a breath or diaphoresis. The patient also denies any nausea or vomiting. He does has a history of TX x2 in the past and states that the pain does not feel somewhat similar. 911 was called and when the paramedics arrived, the patient was given nitroglycerin 0.4 mg sublingually with no relief. The patient has also taken his Pradaxa prior to arrival so the patient was not given any aspirin. EN route, the patient's Accu-Chek was 135. The pain seemed to have resolved but then returned upon arrival to the emergency department's any rated as a 5/10. He describes it as burning in nature. Chief Complaint: Chest Pain Time Seen by MD: 18:29 Primary Care Provider: none Reviewed Notes: Nurses Notes, Branch Sales Manager Notes, Medications, Allergies (Allergies listed above) Allergies: Coded Allergies: Erythromycin (Verified Allergy, Mild, RASH, 09/18/22) Morphine (Unverified Adverse Reaction, Mild, vertigo/N/V, 09/18/22) Home Meds Reported Medications Albuterol Sulfate (Ventolin) Unknown Strength Nb, NEB, INH 09/13/24 Semaglutide (Ozempic) Unknown Strength Inj, SC, INJ 09/13/24 Budesonide-Formoterol Fumarate (Breyna 160-4.5 Mcg/Act) Unknown Strength Aer, IN, AER 09/13/24 Tadalafil (Cialis) 5 Mg Tab, 20 MG PO, TAB 09/13/24 Albuterol Sulfate (VENTOLIN MDI) 90 Mcg Ih, 90 MCG IN, INH 09/13/24 Bumetanide (Bumetanide) 2 Mg Tab, 1 TAB PO DAILY 08/09/24 Aclidinium [place] (Tudorza Pressair) 400 Mcg/Act Aer, 1 PUFF IN BID, AER 02/19/21 Insulin Glargine (Toujeo Solostar) 300 Unit/Ml Inj, 12 UNIT SC HS for DIABETES, INJ 02/19/21 Azilsartan Medoxomil-Chlorthal (Edarbyclor 40-12.5 mg) 1 Tab Tab, 1 TAB PO DAILY, TAB 02/19/21 Budesonide (Inhalation) (Budesonide) 1 Mg/2 Ml Allyson, 1 MG IN BID 08/04/17 Dabigatran Etexilate Mesylate (Pradaxa) 150 Mg Cap, 150 MG PO BID for STOPPED 09/14/22, CAP 06/05/15 Testosterone (AXIRON) 30 Mg/Act Kimberly, 30 MG TD BID 06/05/15 Magnesium Oxide (MAGNESIUM OXIDE) 400 Mg Tab, 400 MG PO BID 08/31/12 Potassium Chloride (Klor-Con) 20 Meq Pow, 20 MEQ PO TID 08/31/12 Atorvastatin Calcium (Lipitor) 10 Mg Tab, 10 MG PO DAILY 08/31/12 Atenolol (Atenolol) 25 Mg Tab, 25 MG PO DAILY 08/31/12 Information Source: Patient, Emergency Med Personnel Mode of Arrival: EMS Severity: Moderate Timing: Hours (Started at 4:00 p.m. today) Duration: Since onset Prehospital treatment: 12 Lead EKG, Accucheck (135), Matcher Offbearer, IVF, NTG, Other (Pradaxa prior to arrival) Location: Substernal Radiation: No Radiation Quality: Pressure, Burning Onset: At Rest Cardiac Risk Factors: Family History, HTN, Diabetes PE Risk Factors: None History of: TX Modifying Factors: Nothing Associated Signs and Symptoms: None Past Medical History PAST MEDICAL HISTORY: Cancer (For [place]), CHF, COPD, DM, HTN, Thyroid (Hypothyroidism) Surgical History: CABG, Pacemaker, Tonsillectomy Surgical History (Other): Bilateral knee surgery, right foot surgery Family History Family History: Family hx of DM, Family hx of heart griselda Social History Smoker: Non-Smoker Alcohol: Denies ETOH Use Drugs: Denies Drug Use Lives In: Home Constitutional: denies: chills, diaphoresis, fatigue, fever, malaise, sweats, weakness, others EENTM: denies: blurred vision, double vision, ear bleeding, ear discharge, ear drainage, ear pain, ear ringing, eye pain, eye redness, hearing loss, mouth pain, mouth swelling, nasal discharge, nose bleeding, nose congestion, nose pain, photophobia, tearing, throat pain, throat swelling, voice changes, others Respiratory: denies: cough, hemoptysis, orthopnea, SOB at rest, shortness of breath, SOB with excertion, stridor, wheezing, others Cardiovascular: reports: chest pain; denies: dizzy spells, diaphoresis, Dyspnea on exertion, edema, irregular heart beat, left arm pain, lightheadedness, palpitations, PND, syncope, others Gastrointestinal: denies: abdomen distended, abdominal pain, blood streaked bowels, constipated, diarrhea, dysphagia, difficulty swallowing, hematemesis, melena, nausea, poor appetite, poor fluid intake, rectal bleeding, rectal pain, vomiting, others Genitourinary: denies: burning, dysuria, flank pain, frequency, hematuria, incontinence, penile discharge, penile sore, pain, testicle pain, testicle swelling, urgency, others Neurological: denies: dizziness, fainting, headache, left sided numbness, left sided weakness, numbness, paresthesia, pre-existing deficit, right sided numbness, right sided weakness, seizure, speech problems, tingling, tremors, w eakness, others Musculoskeletal: denies: back pain, gout, joint pain, joint swelling, muscle pain, muscle stiffness, neck pain, others Integumetry: denies: bruises, change in color, change in hair/nails, dryness, laceration, lesions, lumps, rash, wounds, others Allergic/Immunocompromised: denies: Difficulty Healing, Frequent Infections, Hives, Itching, others Hematologic/Lymphatic: denies: anemia, blood clots, easy bleeding, easy bruising, swollen glands, others Endocrine: denies: excessive hunger, excessive sweating, excessive thirst, excessive urination, flushing, intolerance to cold, intolerance to heat, unexplained weight gain, unexplained weight loss, others Psychiatric: denies: anxiety, bipolar disorder, depression, hopeless, panic disorder, schizophrenia, sleepless, suicidal, others Physical Exam General Appearance: Moderate Distress HEENT: Normal ENT Inspection, Pharynx Normal, TMs Normal Neck: Full Range of Motion, Non-Tender, Normal, Normal Inspection Respiratory: Chest Non-Tender, Lungs Clear, No Accessory Muscle Use, No Respiratory Distress, Normal Breath Sounds Cardiovascular: No Edema, No JVD, No Murmur, No Gallop, Normal Peripheral Pulses, Regular Rate/Rhythm, Other (Pacemaker to the chest) Breast Exam: Deferred Gastrointestinal: No Organomegaly, Non Tender, No Pulsatile Mass, Normal Bowel Sounds, Soft Genitalia: Deferred Pelvic: Deferred Rectal: Deferred Extremities: No calf tenderness, Normal capillary refill, Normal inspection, Normal range of motion, Non-tender, No pedal edema Musculoskeletal : Apperance: Normal Neurologic: Alert, putty mixer and applier II-XII nml as Tested, No Motor Deficits, Normal Affect, Normal Mood, No Sensory Deficits Cerebellar Function: Normal Reflexes: Normal Skin: Dry, Normal Color, Warm, Other (mid line scar to chest ) Lymphatic: No Adenopathy EKG EKG : Pulse Rate (adult): 66 [place]: Normal Cardiac Rhythm: Paced Block: None ST: Nonsp Was a procedure done? Was a procedure done?: No CP Differential Dx Differential Diagnosis: Angina, TX, Pulmonary Embolus Differential Diagnosis: CHF X-Ray, Labs, Meds, VS Vital Signs Date Time Temp Pulse Resp B/P (MAP) Pulse Ox O2 Delivery O2 Flow Rate FiO2 04/25/25 19:55 61 16 98 Room Air* 0 21 04/25/25 19:35 65 04/25/25 19:13 66 04/25/25 19:00 97.4 61 16 102/78 (86) 98 97.4 04/25/25 18:34 66 04/25/25 18:31 98.3 91 18 122/60 99 98.3 Lab Test 04/25/25 19:17 Range/Units White Blood Count 13.8 H 4.4-10.8 10^3/uL Red Blood Count 5.35 4.5-5.90 10^6/uL Hemoglobin 16.7 13.5-17.5 g/dL Hematocrit 47.1 41.0-53.0 % Mean Corpuscular Volume 88.1 80.0-100.0 fL Mean Corpuscular Hemoglobin 31.2 28.0-32.0 pg Mean Corpuscular Hemoglobin Concent 35.4 32.0-36.0 g/dL Red Cell Distribution Width 14.4 H 11.8-14.3 % Platelet Count 153 140-450 10^3/uL Mean Platelet Volume 7.5 6.9-10.8 fL Neutrophils (%) (Auto) 60.4 37.0-80.0 % Lymphocytes (%) (Auto) 28.6 10.0-50.0 % Monocytes (%) (Auto) 9.0 0.0-12.0 % Eosinophils (%) (Auto) 1.7 0.0-7.0 % Basophils (%) (Auto) 0.3 0.0-2.0 % Neutrophils # (Auto) 8.3 1.6-8.6 10 ^3/uL Lymphocytes # (Auto) 3.9 0.4-5.4 10 ^3/uL Monocytes # (Auto) 1.2 0-1.3 10 ^3/uL Eosinophils # (Auto) 0.2 0-0.8 10 ^3/uL Basophils # (Auto) 0 0-0.2 10 ^3/uL Nucleated Red Blood Cells 0.1 % Sodium Level 138 136-145 mmol/L Potassium Level 3.4 L 3.5-5.1 mmol/L Chloride Level 96 L 98-107 mmol/L Carbon Dioxide Level 32 H 20-31 mmol/L Anion Gap 10 5-15 Blood Urea Nitrogen 32 H 9-23 mg/dL Creatinine 1.13 0.700-1.30 mg/dL Glomerular Filtration Rate Calc 67 >90 mL/min BUN/Creatinine Ratio 28.3 H 10.0-20.0 Serum Glucose 105 74-106 mg/dL Calcium Level 10.0 8.7-10.4 mg/dL Troponin I High Sensitivity 176 *H </=54 ng/L IV Hep-Lock was established The CBC shows an elevated white blood cell count of 13.8 The rest of the CBC is within normal limits The chemistry panel shows a potassium of 3.4 The 1st troponin level came back at 176 The chest x-ray shows: No sign of any acute abnormalities. The pacemaker is currently in place The patient is being admitted by Dr. Degroot Images Reviewed?: Images reviewed and evaluated by me Time of 1ST Reevaluation: 19:12 Reevaluation 1ST: Unchanged Patient Education/Counseling: Diagnosis, Treatment, Prognosis Family Education/Counseling: No Family Present SEPSIS Sepsis Screen Date sepsis recognized/suspect: Apr 25, 2025 Time Sepsis recognized/suspect: 1833 Recent Procedure: No On Antibiotic Therapy: No Respiratory Rate >20: No Heart Rate >90: No Temp<36 C (96.8 F) or >38.3 C: No SBP <90 or MAP <65 mmHG: No New Acute Mental Status Change: No Is the patient on CPAP, BIPAP,: No Physician Orders Troponin-I Hs (04/25/25 19:53) Troponin-I Hs (04/25/25 21:53) Electrocardigram (04/25/25 21:53) Chest Portable (04/25/25 18:54) Vital Signs Date Time Temp Pulse Resp B/P (MAP) Pulse Ox O2 Delivery O2 Flow Rate FiO2 04/25/25 19:55 61 16 98 Room Air* 0 21 04/25/25 19:35 65 04/25/25 19:13 66 04/25/25 19:00 97.4 61 16 102/78 (86) 98 97.4 04/25/25 18:34 66 04/25/25 18:31 98.3 91 18 122/60 99 98.3 Laboratory Tests Test 04/25/25 19:17 White Blood Count 13.8 10^3/uL (4.4-10.8) H Departure 1 Departure Time of Disposition: 21:00 Impression: Primary Impression: Acute chest pain Additional Impression: Acute myocardial ischemia Disposition: ADMITTED INPATIENT Admit to: Tele Condition: Fair Critical Care Note Critical Care Time?: Yes (45 min-critical care time only) Stability Stability form required: Yes Unstable for transfer: Telemetry monitoring (Telemetry monitoring required), ED Physician Assesment (Clinical assesment) Heart Score Heart Score: Heart Score Response (Comments) Value History Moderate Suspicious 1 EKG Repolarization Disturb 1 Age >65 2 Risk Factors >3 or Hx ASHD 2 Troponin Normal limit 0 Total 6 MAY LOVE MD Apr 25, 2025 19:05
[2025-04-25 19:31] LABS: Hematocrit 47.1 % (41.0-53.0); Hemoglobin 16.7 g/dL (13.5-17.5); Mean Corpuscular Hemoglobin 31.2 pg (28.0-32.0); Mean Corpuscular Volume 88.1 fL (80.0-100.0); Nucleated Red Blood Cells % 0.1 %
--- NOTE | 2025-04-25 19:37 | ECG ---
[facility] Test Date: 2025-04-25 Test Time: 19:35:34 Pat Name: TATE VELARDE Department: ED Room: 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
--- NOTE | 2025-04-25 19:37 | DVH ---
CHEST RADIOGRAPH Indication: cp Technique: Single frontal view of the chest was obtained Comparison: 02/12/2023 FINDINGS: Lines and Tubes: Dual-chamber pacemaker in place with pulse generator over the left chest. Lungs: Elevation left diaphragm seen on prior study of 2022.. Pleura: No effusion. No pneumothorax. Cardiomediastinal contours: Unremarkable Bones: No acute osseous abnormality. IMPRESSION: 1. No acute cardiopulmonary disease.
[2025-04-25 19:42] LABS: Anion Gap 10 (5-15); Sodium 138 mmol/L (136-145)
[2025-04-25 19:43] LABS: Calcium 10.0 mg/dL (8.7-10.4)
[2025-04-25 19:48] LABS: BUN/Creatinine Ratio 28.3 (10.0-20.0); Glucose 105 mg/dL (74-106)
[2025-04-25 19:49] LABS: Blood Urea Nitrogen 32 mg/dL (9-23); Carbon Dioxide 32 mmol/L (20-31); Chloride 96 mmol/L (98-107); Potassium 3.4 mmol/L (3.5-5.1)
[2025-04-25 19:55] VITALS: PULSE 61; RESP 16; O2SAT 98
--- NOTE | 2025-04-25 23:10 | ECG ---
[facility] Test Date: 2025-04-25 Test Time: 21:33:00 Pat Name: TATE VELARDE [facility] Converting Operator: AGUSTÍN : 1945 Requested By: MAY LOVE Order Number: [id number] Reading MD: Alan Ramos Measurements Intervals [place] Rate: 85 P: 0 [place]: 160 QRS: -40 QRSD: 192 T: 221 QT: 460 QTc: 547 Interpretive Statements Ventricular-paced complexes No further analysis attempted due to paced rhythm Electronically Signed On 04-27-2025 17:46:43 PST by Alan Ramos Please click the below link to view image of tracing.
[2025-04-25] MEDS: ENOXAPARIN SOD 60 MG/0.6 ML SYRINGE SC SCH (23:16)
[2025-04-26] VITALS (24 sets, daily range): BP systolic 109–144; BP diastolic 54–82; PULSE 61–113; RESP 10–24; TEMP 97.6–98.8; O2SAT 93–100
[2025-04-26] MEDS: ENOXAPARIN SOD 100 MG/1 ML SYRINGE SC ONE (12:00)
[2025-04-26] MEDS ORDERED: DEXTROSE (50%) 50ML SYRG IV PRN (12:00)
[2025-04-26] MEDS ORDERED: NITROGLYCERIN 0.4 MG SL TAB SL PRN (12:00)
--- NOTE | 2025-04-26 12:09 | DVHHP2 ---
History of Present Illness History of Present Illness see dictated note Review of Systems Allergies: Coded Allergies: Erythromycin (Verified Allergy, Mild, RASH, 09/18/22) Morphine (Unverified Adverse Reaction, Mild, vertigo/N/V, 09/18/22) Medications Current Medications Medications Dose Ordered Sig/Christen Route Start Time Stop Time Status Last Admin Dose Admin Enoxaparin Sodium 50 mg BID SC 04/25/25 23:00 04/25/25 23:16 50 MG Nitroglycerin 0.4 mg Q5MINP PRN SL 04/26/25 12:00 UNV Morphine Sulfate 2 mg Q30M PRN IV 04/26/25 12:00 UNV Diagnostic Test (Pha) 1 strip ACHS 04/26/25 17:00 UNV Insulin Human Regular ACHS SC 04/26/25 17:00 UNV Dextrose 50 ml UD PRN IV 04/26/25 12:00 UNV Atenolol 25 mg BID PO 04/26/25 22:00 UNV Atorvastatin Calcium 40 mg HS PO 04/26/25 22:00 UNV Enoxaparin Sodium 100 mg Q12HR SC 04/26/25 22:00 UNV Albuterol 2.5 mg Q6HWA NEB 04/26/25 12:00 UNV Ipratropium [place] 0.5 mg Q6HWA NEB 04/26/25 12:00 UNV Pantoprazole Sodium 40 mg DAILY@0600 PO 04/27/25 06:00 UNV Acetaminophen 650 mg Q6HP PRN PO 04/26/25 12:15 UNV Acetaminophen/ Hydrocodone Bitart 1 tab Q6HPRN PRN PO 04/26/25 12:15 UNV Ondansetron HCl 4 mg Q6HPRN PRN IV 04/26/25 12:15 UNV Exam Vital Signs Vital Signs Date Time Temp Pulse Resp B/P (MAP) Pulse Ox O2 Delivery O2 Flow Rate FiO2 04/26/25 09:00 98.4 61 16 135/67 (89) 95 98.4 04/26/25 00:30 Room Air* 0 21 Labs/Xrays Labs Test 04/25/25 22:21 04/25/25 19:17 Range/Units Troponin I High Sensitivity 804 *H </=54 ng/L White Blood Count 13.8 H 4.4-10.8 10^3/uL Red Blood Count 5.35 4.5-5.90 10^6/uL Hemoglobin 16.7 13.5-17.5 g/dL Hematocrit 47.1 41.0-53.0 % Mean Corpuscular Volume 88.1 80.0-100.0 fL Mean Corpuscular Hemoglobin 31.2 28.0-32.0 pg Mean Corpuscular Hemoglobin Concent 35.4 32.0-36.0 g/dL Red Cell Distribution Width 14.4 H 11.8-14.3 % Platelet Count 153 140-450 10^3/uL Mean Platelet Volume 7.5 6.9-10.8 fL Neutrophils (%) (Auto) 60.4 37.0-80.0 % Lymphocytes (%) (Auto) 28.6 10.0-50.0 % Monocytes (%) (Auto) 9.0 0.0-12.0 % Eosinophils (%) (Auto) 1.7 0.0-7.0 % Basophils (%) (Auto) 0.3 0.0-2.0 % Neutrophils # (Auto) 8.3 1.6-8.6 10 ^3/uL Lymphocytes # (Auto) 3.9 0.4-5.4 10 ^3/uL Monocytes # (Auto) 1.2 0-1.3 10 ^3/uL Eosinophils # (Auto) 0.2 0-0.8 10 ^3/uL Basophils # (Auto) 0 0-0.2 10 ^3/uL Nucleated Red Blood Cells 0.1 % Sodium Level 138 136-145 mmol/L Potassium Level 3.4 L 3.5-5.1 mmol/L Chloride Level 96 L 98-107 mmol/L Carbon Dioxide Level 32 H 20-31 mmol/L Anion Gap 10 5-15 Blood Urea Nitrogen 32 H 9-23 mg/dL Creatinine 1.13 0.700-1.30 mg/dL Glomerular Filtration Rate Calc 67 >90 mL/min BUN/Creatinine Ratio 28.3 H 10.0-20.0 Serum Glucose 105 74-106 mg/dL Calcium Level 10.0 8.7-10.4 mg/dL SEPSIS Sepsis Screen Date sepsis recognized/suspect: Apr 25, 2025 Time Sepsis recognized/suspect: 1909 Recent Procedure: No On Antibiotic Therapy: No Respiratory Rate >20: No Heart Rate >90: No Temp<36 C (96.8 F) or >38.3 C: No SBP <90 or MAP <65 mmHG: No New Acute Mental Status Change: No Is the patient on CPAP, BIPAP,: No Physician Orders Admit (04/26/25 11:56) Nitroglycerin Sublingual (Ntrostat Subli (04/26/25 12:00) Morphine Sulfate Injection (04/26/25 12:00) Stat Ekg For Chest Pain (04/26/25 11:56) Notify Md Of Changes From Base (04/26/25 11:56) Workers' Compensation Mediator For 24 Hours (04/26/25 11:56) Emergency Dysrhythmia Protocol (04/26/25 11:56) Rhythm Strips Once Every Shift (04/26/25 11:56) Oxygen By Nasal Cannula (04/26/25 11:56) Consistent Carb(Ccho)Diabetes (04/26/25 Lunch) Glucose Blood (Accu-Chek Comfort Curve T (04/26/25 17:00) Insulin R (Human) (Insulin R) (04/26/25 17:00) Dextrose 50% Syringe (04/26/25 12:00) Atenolol Tablet (Tenormin Tablet) (04/26/25 22:00) Atorvastatin (Lipitor) (04/26/25 22:00) Enoxaparin Sodium (Lovenox) (04/26/25 12:00) Enoxaparin Sodium (Lovenox) (04/26/25 22:00) Albuterol Medneb (Ventolin Medneb) (04/26/25 12:00) Ipratropium Medneb (Atrovent Medneb) (04/26/25 12:00) Pantoprazole Tablet (Protonix Tablet) (04/27/25 06:00) * Cardiology Consult (04/26/25 11:58) Complete Blood Count (04/27/25 06:00) Comprehensive Metabolic Panel (04/27/25 06:00) Hemoglobin A1c (04/27/25 06:00) PTPTT (04/27/25 04:00) Lipid Panel (04/27/25 06:00) Urinalysis (04/26/25 11:58) Acetaminophen Tablet (Tylenol Tablet) (04/26/25 12:15) Hydrocodone-Acet 5/325mg Tab ([place] 5/32 (04/26/25 12:15) Ondansetron Hcl (Zofran) (04/26/25 12:15) Vital Signs Date Time Temp Pulse Resp B/P (MAP) Pulse Ox O2 Delivery O2 Flow Rate FiO2 04/26/25 09:00 98.4 61 16 135/67 (89) 95 98.4 04/26/25 05:29 98.3 64 18 114/54 (74) 93 98.3 Assessment/Plan Assessment/Plan see dictated note Plan discussed with: Patient My Orders Orders - JEFF VERNON MD Procedure Category Date Status Time Admit ADMIT 04/26/25 Transmitted 11:56 Nitroglycerin [facility] 04/26/25 Logged Sublingual (Ntrostat 12:00 Morphine Sulfate [facility] 04/26/25 Logged Injection 12:00 Stat Ekg For Chest [facility] 04/26/25 In Process Pain 11:56 Notify Md Of Changes [facility] 04/26/25 In Process From Base 11:56 Workers' Compensation Mediator For [facility] 04/26/25 In Process 24 Hours 11:56 Emergency Dysrhythmia [facility] 04/26/25 In Process Protocol 11:56 Rhythm Strips Once [facility] 04/26/25 In Process Every Shift 11:56 Oxygen By Nasal RT 04/26/25 Transmitted Cannula 11:56 Consistent DIET 04/26/25 Transmitted Carb(Ccho)Diabetes Lunch Glucose Blood [facility] 04/26/25 Logged (Accu-Chek Comfort 17:00 Insulin R (Human) PHA 04/26/25 Logged (Insulin R) 17:00 Dextrose 50% Syringe PHA 04/26/25 Logged 12:00 Atenolol Tablet [facility] 04/26/25 Logged (Tenormin Tablet) 22:00 Atorvastatin (Lipitor) PHA 04/26/25 Logged 22:00 Enoxaparin Sodium PHA 04/26/25 Logged (Lovenox) 12:00 Enoxaparin Sodium PHA 04/26/25 Logged (Lovenox) 22:00 Albuterol Medneb PHA 04/26/25 Logged (Ventolin Medneb) 12:00 Ipratropium Medneb PHA 04/26/25 Logged (Atrovent Medneb) 12:00 Pantoprazole Tablet PHA 04/27/25 Logged (Protonix Tablet) 06:00 * Cardiology Consult CONS 04/26/25 Transmitted 11:58 Complete Blood Count LAB 04/27/25 Verified 06:00 Comprehensive LAB 04/27/25 Verified Metabolic Panel 06:00 Hemoglobin A1c LAB 04/27/25 Verified 06:00 PTPTT LAB 04/27/25 Verified 04:00 Lipid Panel LAB 04/27/25 Verified 06:00 Urinalysis LAB 04/26/25 Uncollected 11:58 Acetaminophen Tablet PHA 04/26/25 Logged (Tylenol Tablet) 12:15 Hydrocodone-Acet PHA 04/26/25 Logged 5/325mg Tab ([place] 12:15 Ondansetron Hcl PHA 04/26/25 Logged (Zofran) 12:15 Date of Service: Apr 26, 2025 Billing Provider: JEFF VERNON MD Common Visit Codes: [id number] INP/OBS CARE (HIGH) Secondary Visit Codes: [id number] CARE PLAN 30 MINUTES JEFF VERNON MD Apr 26, 2025 12:09
--- NOTE | 2025-04-26 12:14 | DVHHP ---
ADMIT DATE: 04/25/2025 HISTORY OF PRESENT ILLNESS: The patient is a 79-year-old gentleman who came with complaints of severe squeezing chest pain that started last evening that made him come to the Emergency Room. The patient denies any dizziness. No syncope. No nausea or vomiting. No diaphoresis. No pedal edema. REVIEW OF SYSTEMS: Review of rest of systems otherwise negative. No history of cough or hemoptysis. PAST MEDICAL HISTORY: Significant for coronary artery disease with previous CABG, also has a history of diabetes, hypertension, sleep apnea, COPD, congestive heart failure, AICD placement. The patient also has had a right diabetic foot ulcer. MEDICATIONS: He takes Tudorza, atenolol, Lipitor, budesonide, Bumex, Pradaxa, Lantus, potassium, Ozempic. ALLERGIES: TO ERYTHROMYCIN AND MORPHINE. SOCIAL HISTORY: Quit smoking many years ago. Denies alcohol intake. Lives at home with family. FAMILY HISTORY: Negative. PHYSICAL EXAMINATION: GENERAL: The patient is awake, alert. VITAL SIGNS: Temperature of 98.3, pulse 64 per minute, blood pressure 114/54. SHEENT: Unremarkable. NECK: There is no JVD. No pedal edema. LUNGS: Diminished bilaterally. CARDIOVASCULAR: S1 and S2 is irregular. ABDOMEN: Soft. There is no organomegaly. NEUROLOGIC: Nonfocal. MUSCULOSKELETAL: Normal. ASSESSMENT AND PLAN: * Non STEMI, questionable type 1. I have discussed with Dr. Degroot who will see the patient. He will be placed on Lovenox as well as Lipitor for now. * History of coronary artery disease, status post CABG, status post stents. * COPD, for which he will continue bronchodilators. * Sleep apnea, for which he will be placed on a CPAP machine. * Obesity. * Diabetes mellitus. The patient is placed on sliding scale insulin. * Chronic systolic heart failure. * History of AICD. * Hyperlipidemia. ADVANCED CARE PLANNING: The patient is a Full Code-Time spent was 18 minutes. MD PB Ernandez/MYLA TID: [id number] RECEIPT: [id number] [facility]
[2025-04-26] MEDS ORDERED: ACETAMINOPHEN 325 MG TAB PO PRN (12:15)
--- NOTE | 2025-04-26 13:23 | DVHPN2 ---
Progress Note - Dictate Date Seen: Apr 25, 2025 Medical Necessity Reason Pt with a Central, PICC or Fol: No Subjective PT WELL KNOWN TO ME ORGANIC HD S/P CABG 1. Left main distally occluded. 2. Right coronary artery ostially occluded. 3. Saphenous vein graft to the OM1 and OM2 of the circumflex artery is patent. 4. TOSCANO to the LAD is patent, even though viejas LAD is diffusely diseased. 5. Saphenous vein graft to the PDA is patent. Previous site of angioplasty with stent placement is still patent without any residual stenosis. ISCHEMIC CM EF <30% S/P BIV AICD NOW WITH CHEST PAIN MILD ELEVATION OF TROPONIN vital signs Vital Sign Date Time Temp Pulse Resp B/P (MAP) Pulse Ox O2 Delivery O2 Flow Rate FiO2 04/26/25 12:46 98.0 70 18 143/81 (101) 95 98.0 04/26/25 00:30 Room Air* 0 21 Total Intake and Output 04/25/25 04/25/25 04/26/25 15:00 23:00 07:00 Intake Total 150 ml Balance 150 ml medications Current Medications Medications Dose Ordered Sig/Christen Route Start Time Stop Time Status Last Admin Dose Admin Enoxaparin Sodium 50 mg BID SC 04/25/25 23:00 04/25/25 23:16 50 MG Nitroglycerin 0.4 mg Q5MINP PRN SL 04/26/25 12:00 Morphine Sulfate 2 mg Q30M PRN IV 04/26/25 12:00 Diagnostic Test (Pha) 1 strip ACHS 04/26/25 17:00 Insulin Human Regular ACHS SC 04/26/25 17:00 Dextrose 50 ml UD PRN IV 04/26/25 12:00 Atenolol 25 mg BID PO 04/26/25 22:00 Atorvastatin Calcium 40 mg HS PO 04/26/25 22:00 Enoxaparin Sodium 100 mg Q12HR SC 04/26/25 22:00 Albuterol 2.5 mg Q6HWA NEB 04/26/25 12:00 Ipratropium [place] 0.5 mg Q6HWA NEB 04/26/25 12:00 Pantoprazole Sodium 40 mg DAILY@0600 PO 04/27/25 06:00 Acetaminophen 650 mg Q6HP PRN PO 04/26/25 12:15 Acetaminophen/ Hydrocodone Bitart 1 tab Q6HPRN PRN PO 04/26/25 12:15 Ondansetron HCl 4 mg Q6HPRN PRN IV 04/26/25 12:15 laboratory and microbiology Laboratory Tests 04/25/25 19:17 Test 04/25/25 19:17 Range/Units Serum Glucose 105 74-106 mg/dL Problem List ORGANIC HD S/P CABG 1. Left main distally occluded. 2. Right coronary artery ostially occluded. 3. Saphenous vein graft to the OM1 and OM2 of the circumflex artery is patent. 4. TOSCANO to the LAD is patent, even though viejas LAD is diffusely diseased. 5. Saphenous vein graft to the PDA is patent. Previous site of angioplasty with stent placement is still patent without any residual stenosis. ISCHEMIC CM EF <30% S/P BIV AICD NOW WITH CHEST PAIN MILD ELEVATION OF TROPONIN FABIAN MULTIPLE ORTHO PROCEDURES Assessment/Plan ACS PROTOCOL CONSIDER C Plan discussed with: Patient SOLO MASON MD Apr 26, 2025 13:23
--- NOTE | 2025-04-26 13:24 | DVHPN2 ---
Progress Note - Dictate Date Seen: Apr 26, 2025 Medical Necessity Reason Pt with a Central, PICC or Fol: No Subjective PT WELL KNOWN TO ME ORGANIC HD S/P CABG 1. Left main distally occluded. 2. Right coronary artery ostially occluded. 3. Saphenous vein graft to the OM1 and OM2 of the circumflex artery is patent. 4. TOSCANO to the LAD is patent, even though [place] LAD is diffusely diseased. 5. Saphenous vein graft to the PDA is patent. Previous site of angioplasty with stent placement is still patent without any residual stenosis. ISCHEMIC CM EF <30% S/P BIV AICD NOW WITH CHEST PAIN MILD ELEVATION OF TROPONIN vital signs Vital Sign Date Time Temp Pulse Resp B/P (MAP) Pulse Ox O2 Delivery O2 Flow Rate FiO2 04/26/25 12:46 98.0 70 18 143/81 (101) 95 98.0 04/26/25 00:30 Room Air* 0 21 Total Intake and Output 04/25/25 04/25/25 04/26/25 15:00 23:00 07:00 Intake Total 150 ml Balance 150 ml medications Current Medications Medications Dose Ordered Sig/Christen Route Start Time Stop Time Status Last Admin Dose Admin Enoxaparin Sodium 50 mg BID SC 04/25/25 23:00 04/25/25 23:16 50 MG Nitroglycerin 0.4 mg Q5MINP PRN SL 04/26/25 12:00 Morphine Sulfate 2 mg Q30M PRN IV 04/26/25 12:00 Diagnostic Test (Pha) 1 strip ACHS 04/26/25 17:00 Insulin Human Regular ACHS SC 04/26/25 17:00 Dextrose 50 ml UD PRN IV 04/26/25 12:00 Atenolol 25 mg BID PO 04/26/25 22:00 Atorvastatin Calcium 40 mg HS PO 04/26/25 22:00 Enoxaparin Sodium 100 mg Q12HR SC 04/26/25 22:00 Albuterol 2.5 mg Q6HWA NEB 04/26/25 12:00 Ipratropium [place] 0.5 mg Q6HWA NEB 04/26/25 12:00 Pantoprazole Sodium 40 mg DAILY@0600 PO 04/27/25 06:00 Acetaminophen 650 mg Q6HP PRN PO 04/26/25 12:15 Acetaminophen/ Hydrocodone Bitart 1 tab Q6HPRN PRN PO 04/26/25 12:15 Ondansetron HCl 4 mg Q6HPRN PRN IV 04/26/25 12:15 laboratory and microbiology Laboratory Tests 04/25/25 19:17 Test 04/25/25 19:17 Range/Units Serum Glucose 105 74-106 mg/dL Problem List ORGANIC HD S/P CABG 1. Left main distally occluded. 2. Right coronary artery ostially occluded. 3. Saphenous vein graft to the OM1 and OM2 of the circumflex artery is patent. 4. TOSCANO to the LAD is patent, even though [place] LAD is diffusely diseased. 5. Saphenous vein graft to the PDA is patent. Previous site of angioplasty with stent placement is still patent without any residual stenosis. ISCHEMIC CM EF <30% S/P BIV AICD NOW WITH CHEST PAIN MILD ELEVATION OF TROPONIN FABIAN MULTIPLE ORTHO PROCEDURES Assessment/Plan ACS PROTOCOL CONSIDER C CORRECT HYPOKALEMIA Plan discussed with: Patient SOLO MASON MD Apr 26, 2025 13:24
[2025-04-26] MEDS: ALBUTEROL SULF 2.5 MG/0.5ML(0.5%) NEB SOLN NEB SCH (13:27)
[2025-04-26] MEDS: IPRATROPIUM BROM 0.5 MG/2.5ML INH SOL NEB SCH (13:27)
[2025-04-26] MEDS: HEPARIN SODIUM (PORCINE) 5000 UNITS/ML 1ML VIAL ONE (16:18)
[2025-04-26] MEDS: IOHEXOL 350 MG/ML 100ML IJ ONE ×5 (16:19→17:11)
[2025-04-26] MEDS: MIDAZOLAM HCL 2MG/2ML 2ml VIAL (1mg/ml) ONE (16:19)
[2025-04-26] MEDS: fentaNYL CITRATE 100 MCG/2 ML VL ONE (16:19)
[2025-04-26] MEDS: LIDOCAINE 2%HCL (LOCAL ANESTH.) INJ 20ML MDV ONE (16:20)
[2025-04-26] MEDS: ANGIOMAX 250 MG VIAL IV ONE ×2 (16:45→16:56)
[2025-04-26] MEDS: SODIUM CHL 0.9% 50 ML ONE (16:56)
[2025-04-26] MEDS: InsuLIN REG 1unit/0.01ml Soln (100units/ml) SC SCH (17:00)
[2025-04-26] MEDS: ACCU-CHEK COMFORT CURVE STRIP VI SCH (17:00)
[2025-04-26] MEDS: ONDANSETRON HCL 4 MG/2 ML VIAL IV PRN (18:37)
[2025-04-26] MEDS: MORPHINE SULFATE INJ 2 MG/ml SYRG IV PRN (18:38)
[2025-04-26] MEDS: HYDROcodone-ACET 5/325MG TAB PO PRN (18:45)
[2025-04-26] MEDS: CLOPIDOGREL BISULFATE 75 MG TAB PO ONE (18:46)
[2025-04-26] MEDS: CLOPIDOGREL BISULFATE 75 MG TAB ONE (18:47)
--- NOTE | 2025-04-26 19:22 | DVHOP ---
DATE OF SURGERY: 04/26/2025 INDICATIONS: The patient presented with non-ST elevation ID with chest pain. The patient has a history of coronary artery bypass grafting, TOSCANO to the LAD, saphenous vein graft to the OM, saphenous vein graft to the PDA. The patient's trops went up to 800 and therefore, because of the ____ chest pain, it is felt that the patient should undergo coronary angiography. In the meantime, the patient has severe congestive heart failure, ischemic cardiomyopathy, EF less than 25%, status post biventricular AICD implantation. PROCEDURE: The patient was given conscious sedation, saphenous vein graft x2, subclavian vein, artery was also cannulated and angiography was done. DESCRIPTION OF PROCEDURE: The patient was prepped and draped in sterile condition. 1% Xylocaine was used to anesthetize the right groin. Using Cook needle, right femoral artery was engaged with Seldinger technique. A [place] sheath in the right femoral artery. Using 6[place] JL4 catheter, a 6[place] JR4 catheter, selective left and right coronary angiography was performed. Using a 6[place] JL4 diagnostic catheter, angiography, saphenous vein graft, and TOSCANO was performed. There were no complications. The patient tolerated the procedure well. Then, the 6[place] diagnostic system was exchanged for a 6[place] interventional system. Using a left coronary bypass graft catheter, saphenous vein graft to the OM was cannulated. Using a choice PT access support wire, we were able to cross the total occlusion of the obtuse marginal 1, which I believe, was sequenced bypass to the OM, circumflex, and OM2. It was 99.9% occluded. It appeared to be chronic at this time, but because there are no other vessels that are involved that requires any intervention, it is felt that we will give it a try to revascularize. Finally, after several manipulation of multiple wires, we were able to get a choice PT wire through the subtotal occlusion. Following that, we were able to get a 1.2 followed by 1.5 followed by a 2 mm balloon into the stenotic region and we were able to angioplasty. There was less than 20% residual stenosis; however, it appears as though that is where the sutures were for the anastomotic site. Therefore, it is very difficult to revascularize. We elected not to stent the region. The patient remained completely asymptomatic throughout the procedure. CONCLUSION: The patient with a coronary artery disease. Now with non-ST elevation ID, I believe, it is a small vessel disease that is causing his symptoms. Medical management would be optimized. RESULTS: * Left main patent. * Left anterior descending artery was occluded. * Circumflex was occluded. * Right coronary artery was occluded. * TOSCANO to the LAD was patent. * Saphenous vein graft to the OM was patent, but it was sequenced to OM2 and we were able to revascularize it, although we were not able to stent it because we would have compromised the main branch, and also because it is at the anastomotic site, the suture will constrict the stent and will cause total occlusion of the saphenous vein graft. We elected to just plain angioplasty the lesion. * Saphenous vein graft to the PDA was also patent. At this time, conservative medical management since all grafts were open. Continue to anticoagulate. Dual antiplatelet therapy will be continued. Anticoagulation will be maintained. I will continue to follow patient. Zane Bloom MD SA/JASMIN/JORGE/KARINA TID: [id number] RECEIPT: [id number]
[2025-04-26] MEDS: MELATONIN 5 MG TAB PO ONE (21:08)
[2025-04-26] MEDS: ATORVASTATIN 20 MG TAB PO SCH (21:08)
[2025-04-26] MEDS: ENOXAPARIN SOD 100 MG/1 ML SYRINGE SC SCH (21:09)
[2025-04-26] MEDS: ATENOLOL 25 MG TAB PO SCH (21:09)
[2025-04-27] VITALS (11 sets, daily range): BP systolic 112–116; BP diastolic 52–69; PULSE 61–78; RESP 16–24; TEMP 36.4; O2SAT 91–100
[2025-04-27 04:15] LABS: Nucleated Red Blood Cells % 0.0 %
[2025-04-27 04:18] LABS: Hematocrit 44.3 % (41.0-53.0); Hemoglobin 16.1 g/dL (13.5-17.5); Mean Corpuscular Hemoglobin 31.5 pg (28.0-32.0); Mean Corpuscular Volume 86.6 fL (80.0-100.0)
[2025-04-27 04:24] LABS: INR 1.13 (0.9-1.15); Partial Thromboplastin Time 41.3 SEC (24.5-34.5); Prothrombin Time 11.8 sec (9.3-11.8)
[2025-04-27 04:25] LABS: Alanine Aminotransferase 48 U/L (7-40); Albumin 4.0 g/dL (3.2-4.8); Alkaline Phosphatase 72 U/L (46-116); Anion Gap 11 (5-15); BUN/Creatinine Ratio 20.2 (10.0-20.0); Blood Urea Nitrogen 18 mg/dL (9-23); Calcium 9.2 mg/dL (8.7-10.4); Carbon Dioxide 28 mmol/L (20-31); Chloride 96 mmol/L (98-107); Glucose 145 mg/dL (74-106); Potassium 3.1 mmol/L (3.5-5.1); Sodium 135 mmol/L (136-145); Total Protein 6.9 g/dL (5.7-8.2)
[2025-04-27 04:26] LABS: Bilirubin, Total 3.2 mg/dL (0.2-1.0)
[2025-04-27 04:48] LABS: Triglycerides 117 mg/dL (< 150)
[2025-04-27 04:50] LABS: Cholesterol 138 mg/dL (< 200)
[2025-04-27 04:52] LABS: HDL Cholesterol 35 mg/dL (40-59)
[2025-04-27] MEDS: PANTOPRAZOLE 40 MG TAB PO SCH (05:34)
[2025-04-27] MEDS: POTASSIUM CHL 20 Meq TABLET PO ONE (06:52)
--- NOTE | 2025-04-27 08:07 | ECG ---
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
[2025-04-27] MEDS ORDERED: CLOPIDOGREL BISULFATE 75 MG TAB PO SCH (10:00)
[2025-04-27] MEDS: CLOPIDOGREL BISULFATE 75 MG TAB PO SCH (10:56)
--- NOTE | 2025-04-27 11:49 | DVHDS2 ---
Discharge Summary Date of Admission Apr 25, 2025 at 21:26 Date of Discharge: Apr 27, 2025 Labs/Diagnostic Data: Laboratory Results Test 04/27/25 05:54 04/27/25 03:59 04/25/25 22:21 POC Glucose 147 mg/dl (70-106) White Blood Count 17.3 10^3/uL (4.4-10.8) Red Blood Count 5.11 10^6/uL (4.5-5.90) Hemoglobin 16.1 g/dL (13.5-17.5) Hematocrit 44.3 % (41.0-53.0) Mean Corpuscular Volume 86.6 fL (80.0-100.0) Mean Corpuscular Hemoglobin 31.5 pg (28.0-32.0) Mean Corpuscular Hemoglobin Concent 36.3 g/dL (32.0-36.0) Red Cell Distribution Width 14.3 % (11.8-14.3) Platelet Count 143 10^3/uL (140-450) Mean Platelet Volume 7.8 fL (6.9-10.8) Neutrophils (%) (Auto) 75.1 % (37.0-80.0) Lymphocytes (%) (Auto) 14.9 % (10.0-50.0) Monocytes (%) (Auto) 9.0 % (0.0-12.0) Eosinophils (%) (Auto) 0.5 % (0.0-7.0) Basophils (%) (Auto) 0.5 % (0.0-2.0) Neutrophils # (Auto) 13.0 10 ^3/uL (1.6-8.6) Lymphocytes # (Auto) 2.6 10 ^3/uL (0.4-5.4) Monocytes # (Auto) 1.5 10 ^3/uL (0-1.3) Eosinophils # (Auto) 0.1 10 ^3/uL (0-0.8) Basophils # (Auto) 0.1 10 ^3/uL (0-0.2) Nucleated Red Blood Cells 0.0 % Prothrombin Time 11.8 sec (9.3-11.8) Prothrombin Time INR 1.13 (0.9-1.15) Activated Partial Thromboplast Time 41.3 SEC (24.5-34.5) Sodium Level 135 mmol/L (136-145) Potassium Level 3.1 mmol/L (3.5-5.1) Chloride Level 96 mmol/L (98-107) Carbon Dioxide Level 28 mmol/L (20-31) Anion Gap 11 (5-15) Blood Urea Nitrogen 18 mg/dL (9-23) Creatinine 0.89 mg/dL (0.700-1.30) Glomerular Filtration Rate Calc 88 mL/min (>90) BUN/Creatinine Ratio 20.2 (10.0-20.0) Serum Glucose 145 mg/dL (74-106) Hemoglobin A1c 7.5 % A1C (<5.7) Calcium Level 9.2 mg/dL (8.7-10.4) Magnesium Level 1.7 mg/dL (1.6-2.6) Total Bilirubin 3.2 mg/dL (0.2-1.0) Aspartate Amino Transferase (AST) 166 U/L (13-40) Alanine Aminotransferase (ALT) 48 U/L (7-40) Alkaline Phosphatase 72 U/L (46-116) Total Protein 6.9 g/dL (5.7-8.2) Albumin 4.0 g/dL (3.2-4.8) Triglycerides Level 117 mg/dL (< 150) Cholesterol Level 138 mg/dL (< 200) LDL Cholesterol 79 mg/dL (< 100) HDL Cholesterol 35 mg/dL (40-59) Troponin I High Sensitivity 804 ng/L (</=54) Other Laboratory Tests 04/27/25 03:59 Brief Hx & Hospital Course: see dictated note Condition at Discharge: Fair Final Diagnosis/Problems List cad Discharge Disposition: Home Discharge Instruct/Medications Diet: Consistent carbohydrate, Cardiac 2g Na,low cholest Activity: No Restrictions, As Tolerated Follow Up/Referral: fu with dr Degroot Medications: resume home meds script to pharmacy Scheduled Aclidinium [place] (Tudorza Pressair), 1 PUFF IN BID, (Reported) Atenolol (Atenolol), 25 MG PO DAILY, (Reported) Atorvastatin Calcium (Lipitor), 10 MG PO DAILY, (Reported) Azilsartan Medoxomil-Chlorthal (Edarbyclor 40-12.5 mg), 1 TAB PO DAILY, (Reported) Budesonide (Inhalation) (Budesonide), 1 MG IN BID, (Reported) Bumetanide (Bumetanide), 1 TAB PO DAILY, (Reported) Dabigatran Etexilate Mesylate (Pradaxa), 150 MG PO BID, (Reported) Insulin Glargine (Toujeo Solostar), 12 UNIT SC HS, (Reported) Magnesium Oxide (Magnesium Oxide), 400 MG PO BID, (Reported) Potassium Chloride (Klor-Con), 20 MEQ PO TID, (Reported) Testosterone (Axiron), 30 MG TD BID, (Reported) Miscellaneous Medications Albuterol Sulfate (Ventolin Mdi), 90 MCG IN, (Reported) Albuterol Sulfate (Ventolin), Unknown Dose NEB, (Reported) Budesonide-Formoterol Fumarate (Breyna 160-4.5 Mcg/Act), Unknown Dose IN, (Reported) Semaglutide (Ozempic), Unknown Dose SC, (Reported) Tadalafil (Cialis), 20 MG PO, (Reported) Discharge Statement: "Patient was advised to return to the ER or call 911 if any headaches, dizziness, shortness of breath, chest pain, abdominal pain, bleeding, fevers, or worsening of medical condition. Patient was counseled about treatment plan, medications, possible side effects, patientverbalized understanding. All questions were answered to the best of my ability. This discharge took greater then 30 minutes in planning, reviewing documentation, counseling the patient, and discussing with other team members." ASSESSMENT ASSESSMENT Assessment cad Date of Service: Apr 27, 2025 Billing Provider: JEFF VERNON MD Common Visit Codes: 25290-YTS/OBS DISCH DAY >30min JEFF VERNON MD Apr 27, 2025 11:49
[2025-04-27] MEDS ORDERED: CLOP75TA28 PO (11:50)
[2025-04-27] MEDS ORDERED: POTASSIUM CHL 20 Meq TABLET PO ONE (12:00)
--- NOTE | 2025-04-27 12:19 | DVHDS ---
DATE OF DISCHARGE: 04/27/2025 HISTORY OF PRESENT ILLNESS: The patient is a 79-year-old gentleman who was admitted with complaints of severe chest pain and has a history of coronary artery disease, previous CABG, diabetes, hypertension, sleep apnea, COPD, congestive heart failure, and AICD placement. HOSPITAL COURSE: The patient was seen by cardiology consult by Dr. Degroot. The patient underwent coronary angiography. The patient's troponin levels were elevated up to 804. The patient underwent coronary angiography with vascularization of saphenous vein graft. The patient will therefore be discharged home to resume his home medications as per Dr. Degroot and as well as to be on Plavix 75 mg daily. He will follow up with Dr. Degroot in the next 1-2 weeks. FINAL DIAGNOSES: * Non-STEMI status post coronary angiography. * History of coronary artery disease with previous stents and CABG. * COPD. * Sleep apnea. * Obesity. * Diabetes mellitus. * Chronic systolic heart failure. * History of AICD. * Hyperlipidemia. Time spent in discharge planning and review of plan with the patient, safety and health consultant and nursing was 39 minutes. MD PB Ernandez/RENETTA TID: [id number] RECEIPT: [id number]
--- NOTE | 2025-04-27 15:01 | CONS ---
Pharmacy Clinical Information: Patient has CHF, please switch atenolol to one of the following (carvedilol, metoprolol succinate, or bisoprolol). These three have proven mortality and morbidity benefits in large randomized controlled trials and are endorsed by the the 222 AHA/ACC/HFSA guidelines. Do not use atenolol for GDMT in heart failure [facility] Apr 27, 2025 15:01
--- NOTE | 2025-04-27 15:43 | DVHPN2 ---
Progress Note - Dictate Date Seen: Apr 27, 2025 Medical Necessity Reason Pt with a Central, PICC or Fol: No Subjective PT WELL KNOWN TO ME ORGANIC HD S/P CABG 1. Left main distally occluded. 2. Right coronary artery ostially occluded. 3. Saphenous vein graft to the OM1 and OM2 of the circumflex artery is patent. 4. TOSCANO to the LAD is patent, even though [place] LAD is diffusely diseased. 5. Saphenous vein graft to the PDA is patent. Previous site of angioplasty with stent placement is still patent without any residual stenosis. ISCHEMIC CM EF <30% S/P BIV AICD NOW WITH CHEST PAIN MILD ELEVATION OF TROPONIN vital signs Vital Sign Date Time Temp Pulse Resp B/P (MAP) Pulse Ox O2 Delivery O2 Flow Rate FiO2 04/27/25 13:39 36.4 62 04/27/25 13:00 20 113/62 (79) 96 04/27/25 10:00 Nasal Cannula 2.0 04/27/25 10:00 28 Total Intake and Output 04/26/25 04/26/25 04/27/25 15:00 23:00 07:00 Intake Total 1350 ml 800 ml Output Total 400 ml Balance 950 ml 800 ml medications Current Medications Medications Dose Ordered Sig/Christen Route Start Time Stop Time Status Last Admin Dose Admin Clopidogrel Bisulfate 75 mg DAILY PO 04/27/25 10:00 UNV laboratory and microbiology Laboratory Tests 04/27/25 03:59 Test 04/27/25 03:59 Range/Units Serum Glucose 145 H 74-106 mg/dL Problem List ORGANIC HD S/P CABG 1. Left main distally occluded. 2. Right coronary artery ostially occluded. 3. Saphenous vein graft to the OM1 and OM2 of the circumflex artery is patent. 4. TOSCANO to the LAD is patent, even though redd[place] LAD is diffusely diseased. 5. Saphenous vein graft to the PDA is patent. Previous site of angioplasty with stent placement is still patent without any residual stenosis. ISCHEMIC CM EF <30% S/P BIV AICD NOW WITH CHEST PAIN MILD ELEVATION OF TROPONIN FABIAN MULTIPLE ORTHO PROCEDURES Assessment/Plan ACS PROTOCOL CONSIDER LHC CORRECT HYPOKALEMIA DC HOME FOLLOW UP IN 1 WEEK Plan discussed with: Patient SOLO MASON MD Apr 27, 2025 15:43
== END 2025-04-27 14:44 | disposition home or self-care (01) | DRG 322 ==
LOC: EDUNIT# 18:26 → ER 18:26 → EDBD 18:26 → OVERFLOW 21:26 → TELE-WESTW 23:47
PROVIDERS: ADMIT Internal Medicine; ATTEND Internal Medicine
PROC: B213YZZ Fluoroscopy of Multiple Coronary Artery Bypass Grafts using Other Contrast (ICD-10-PCS; principal; 2025-04-26)
PROC: B211YZZ Fluoroscopy of Multiple Coronary Arteries using Other Contrast (ICD-10-PCS; 2025-04-26)
PROC: 02703DZ Dilation of Coronary Artery, One Artery with Intraluminal Device, Percutaneous Approach (ICD-10-PCS; 2025-04-26)
DX: I21.4 Non-ST elevation (NSTEMI) myocardial infarction (principal); I50.22 Chronic systolic (congestive) heart failure; I11.0 Hypertensive heart disease with heart failure; E03.9 Hypothyroidism, unspecified; Z79.02 Long term (current) use of antithrombotics/antiplatelets; E11.9 Type 2 diabetes mellitus without complications; E66.9 Obesity, unspecified; J44.9 Chronic obstructive pulmonary disease, unspecified; E78.5 Hyperlipidemia, unspecified; G47.33 Obstructive sleep apnea (adult) (pediatric); E87.6 Hypokalemia; I25.5 Ischemic cardiomyopathy; I25.10 Atherosclerotic heart disease of native coronary artery without angina pectoris; Z79.4 Long term (current) use of insulin; Z79.899 Other long term (current) drug therapy; Z95.1 Presence of aortocoronary bypass graft; Z88.1 Allergy status to other antibiotic agents; Z83.3 Family history of diabetes mellitus; Z87.891 Personal history of nicotine dependence; Z95.810 Presence of automatic (implantable) cardiac defibrillator; Z95.5 Presence of coronary angioplasty implant and graft
CPT/HCPCS: 36415; 71045; 80048; 80053; 80061; 82962; 83036; 83735; 84484; 85025; 85610; 85730; 92920; 93005; 93455; 94640; 94660; 99152; 99291; G0378; J1815; J2250; J2405